=== PATIENT | male | born 1985 | race Caucasian/White ===

== ENCOUNTER 2017-03-13 11:24 | Inpatient (IN) | payer BC ==
[2017-03-13] MEDS: Albumin Human 25%* 50 ML BTL IV SCH (11:30)
[2017-03-13] MEDS ORDERED: NS 0.9% 1000 ML* 1,000 ML IV ONE (11:38)
[2017-03-13 11:45] LABS: Hematocrit 44 % (42-52); Hemoglobin 14.9 g/dl (14.0-18.0); Mean Corpuscular HGB Conc 34 g/dl (31-36); Mean Corpuscular Hemoglobin 34 pg (27-31); Mean Corpuscular Volume 101 fL (80-94); Mean Platelet Volume 10 um3 (7.4-10.4); Red Blood Count 4.38 10^6/ul (4.0-5.4); Red Cell Distribution Width 15 % (10.5-15); White Blood Count 14.3 10^3/ul (3.5-10.8)
[2017-03-13 12:01] LABS: Albumin 3.2 g/dL (3.2-5.2); BUN/Creatinine Ratio 3.2 (8-20); C Reactive Protein 16.73 mg/L (< 5.00); Calcium 8.5 mg/dL (8.6-10.3); EGFR African American 192.1 (>60); EGFR Non-African American 149.4 (>60); Globulin 4.7 g/dL (2-4); Potassium 3.2 mmol/L (3.5-5.0); Total Bilirubin 4.4 mg/dL (0.2-1.0); Total Protein 7.9 g/dL (6.4-8.9)
[2017-03-13 12:02] LABS: Troponin I 0.02 ng/mL (<0.04)
--- NOTE | 2017-03-13 12:27 | RAD ---
HISTORY: Abdominal distention COMPARISONS: None VIEWS: 2: Frontal dual-energy and lateral views of the chest. FINDINGS: CARDIOMEDIASTINAL SILHOUETTE: The cardiomediastinal silhouette is normal. BAYRON: The bayron are normal. PLEURA: The costophrenic angles are sharp. No pleural abnormalities are noted. LUNG PARENCHYMA: The lung volumes are low. The lungs are clear. ABDOMEN: The upper abdomen is clear. There is no subphrenic gas. BONES AND SOFT TISSUES: No bone or soft tissue abnormalities are noted. OTHER: None. IMPRESSION: NO ACTIVE CARDIOPULMONARY DISEASE.
--- NOTE | 2017-03-13 12:28 | RAD ---
HISTORY: Abdominal distention COMPARISONS: None VIEWS: Frontal views of the abdomen. FINDINGS: BOWEL: There is a nonobstructive bowel gas pattern. CALCULI: There are no abnormal calculi. BONES AND SOFT TISSUES: There are no osseous abnormalities. OTHER FINDINGS: The lung bases are clear. There is no subphrenic gas. IMPRESSION: NONOBSTRUCTIVE BOWEL GAS PATTERN.
[2017-03-13 12:50] LABS: Erythrocyte Sed Rate 32 mm/Hr (0-14)
[2017-03-13] MEDS ORDERED: Ondansetron INJ* 2 MG/ML VIAL IV PRN (13:15)
--- NOTE | 2017-03-13 13:33 | RAD ---
HISTORY: Rule out ascites COMPARISONS: None TECHNIQUE: Multiple transverse and longitudinal ultrasound images were obtained of the abdomen using grayscale imaging FINDINGS: There is moderate to large amount of ascites. In the right lower quadrant, the depth from the skin to the ascites is 3.5 cm. The depth from the skin to the center of ascites is 8.3 cm. The site was marked IMPRESSION: ASCITES
[2017-03-13] MEDS ORDERED: Thiamine IV* 100 MG, Folic Acid IV* 1 MG, Multiple Vitamin IV ADULT* 10 ML in NS 0.9% 1... IV ONE (14:01)
[2017-03-13] MEDS ORDERED: Potassium Chlor TAB* 20 MEQ TAB.ER PO ONE (14:14)
[2017-03-13] MEDS ORDERED: Phytonadione Oral Solution* 5 MG/25 ML UDC PO ONE (14:17)
[2017-03-13 14:43] LABS: Magnesium 1.5 mg/dL (1.9-2.7)
--- NOTE | 2017-03-13 14:51 | PN ---
Hospitalist Progress Note Procedure Note: Date/Time of Procedure: 03/13/2017 at 2:00 PM Procedure: Paracentesis Proceduralist: Franc Zaman MD Indication: New onset ascites Location: ED-18 Procedure: Patient was prepped and draped in sterile fashion. LLQ area was marked by US guidance prior to the procedure. Area was anesthetized with 1% Lidocaine with 25G needle. Once numb a small incision was made with the scalpel and the 18G needle with catheter was advanced under intermittent negative pressure until clear, yellow ascitic fluid was obtained in a 50 cc syringe which was sent for testing. The needle was withdrawn and catheter advanced however when connected to the vacuum bottles it was difficult to get a continuous flow of fluid, some of which was slightly bloody. Despite repositioning of the catheter I was unable to get any significant fluid return. Another attempt was made with a second needle and catheter from another kit however the same problem occurred. At this time will hold on therapeutic portion of the procedure and will follow labs/cultures sent from initial fluid. Dispo: Unchanged from prior, stable for admission to the floor.
[2017-03-13] MEDS ORDERED: Magnesium Sulfate 2 GM IV* 2 GM/50 ML BAG IVPB ONE (14:52)
[2017-03-13] MEDS ORDERED: cefTRIAXone VIAL(*) 2,000 MG in NS 0.9% 50 ML* 50 ML IVPB SCH (15:00)
[2017-03-13 15:53] LABS: Body Fluid WBC 50 /mcL
[2017-03-13 15:54] LABS: Body Fluid Appearance Clear
[2017-03-13 15:57] LABS: Body Fluid Total Cells Counted 100
[2017-03-13 16:24] LABS: Urine Bilirubin Negative (Negative); Urine Glucose 1+(50 mg/dL) (Negative); Urine Nitrite Negative (Negative)
[2017-03-13] MEDS: LORazepam TAB(*) 1 MG PO SCH (16:26)
[2017-03-13] MEDS ORDERED: Morphine INJ* 4 MG/ML 1 ML SYRINGE IV ONE (17:48)
--- NOTE | 2017-03-13 18:15 | PN ---
Hospitalist Progress Note Procedure Note: Date/Time of Procedure: 03/13/2017 at 4:00 PM Procedure: Paracentesis Proceduralist: Franc Zaman MD Indication: New onset ascites Location: 410-1 Procedure: Patient was prepped and draped in sterile fashion. LLQ area was marked by US guidance prior to the procedure. Area was anesthetized with 1% Lidocaine with 25G needle. Once numb a small incision was made with the scalpel and the 18G needle with catheter was advanced under intermittent negative pressure until clear, yellow ascitic fluid was obtained. The needle was withdrawn and catheter advanced, tubing was connected to the vacuum container and fluid drained freely. 2L of straw-colored ascitic fluid was removed. Patient tolerated the procedure well. Dispo: Unchanged from prior
--- NOTE | 2017-03-13 19:02 | HP ---
CC: Dr. Kathy Tovar* HISTORY AND PHYSICAL: DATE OF ADMISSION: 03/13/17 PRIMARY CARE PROVIDER: Dr. Kathy Tovar. ATTENDING PHYSICIAN WHILE IN THE HOSPITAL: Franc Zaman MD *(report dictated by Juan Kessler NP). CHIEF COMPLAINT: Shortness of breath. HISTORY OF PRESENT ILLNESS: Mr. Blankenship is a 32-year-old male patient who carries a heavy history of alcoholism. He comes into the ER today stating that he has been having difficulty with shortness of breath, progressively getting worse over the last few months and he noticed that his abdomen has been getting bigger. He says in January he was diagnosed with Lyme disease. He was started on doxycycline. He stopped drinking in January for about a month's time, but then he started up having again in February and progressively worsening shortness of breath and abdominal distention since then. He says that particularly with exertion he is short of breath. He denied having any chest pain. He says that it sometimes hurts to breathe. He denied any fevers, but did admit to having some chills and 1 episode of vomiting and nausea, particularly in the mornings after drinking. He denied having any changes in medications. He came into the ER today, was evaluated, it was found that he appeared to be in acute alcoholic hepatitis. The ER was concerned. They had asked us to evaluate for admission. PAST MEDICAL HISTORY: Significant for: 1. Alcohol abuse. 2. Depression. 3. Psoriasis. PAST SURGICAL HISTORY: He has had a left ankle ORIF. MEDICATIONS: Home meds are denied. ALLERGIES TO MEDICATIONS: No known drug allergies. FAMILY HISTORY: His mother has a history of breast cancer. Father's history is noncontributory. SOCIAL HISTORY: He does not smoke tobacco. He does not use any recreational drugs. He does drink alcohol on a daily basis. His surrogate decision maker is his friend. REVIEW OF SYSTEMS: There is a no documented fever. He denied any significant weight change. There was no double vision. He denies having any ear discharge. There was no rhinorrhea, no sore throat, no thyroid enlargement. Denied having any chest pain. There is dyspnea on exertion. There is orthopnea. There is no abdominal pain, he said he just feels full. He did admit to having some nausea and vomiting. No dysuria. No frequency. No loss of consciousness. No pruritus. No skin ulcerations. Review of 14 systems completed, all others negative. PHYSICAL EXAMINATION GENERAL: At this time, Mr. Blankenship is a 32-year-old male patient. He is sitting in the ER stretcher. He does not appear to be in any acute stress. He is morbidly obese. He is awake and he is alert. VITAL SIGNS: Reveal blood pressure 176/100 with a pulse of 140, and respirations when he came in were 36, O2 sat 95%, temperature 99.5. His heart rate now is 108. His respirations is 23. His O2 sat is 94%. His last blood pressure was noted to be 140/70. HEENT: Head is atraumatic. Eyes, EOMs intact. Sclerae anicteric, not pale. Throat, oral mucosa appeared to be moist. No oropharyngeal erythema. NECK: Supple. LUNGS: Were diminished in the bases. HEART: Heart sounds S1, S2. Regular rate and rhythm. He is tachycardic. ABDOMEN: Distended. Dense percussion was noted. He was nontender on palpation. Bowel sounds were distant. EXTREMITIES: Pulses were 2+ throughout. He has +2 pitting edema bilaterally. He is able to move all 4 extremities with 5/5 strength. NEUROLOGIC: The patient is awake, he is alert, he is oriented x3. Bottle Carrier were equal. Tongue midline. No gross focal deficits. SKIN: Intact. He has got diffuse plaques on his body. DIAGNOSTIC STUDIES/LAB DATA: Today revealed WBC of 14.3, RBC of 4.38, hemoglobin of 14.9, his hematocrit was 44, platelet count of 118. The INR was 1.53. PTT was 44.2. His sodium was 123, chloride was 88, bicarb was 23, BUN 2 , creatinine of 0.62, glucose 194, lactic acid was 4.1, calcium 8.5. Total bili 4.4, AST 348, ALT 71. His troponin was 0.02. CRP 16. His albumin was 3.2. Toxicology showed an alcohol level of 401. His abdominal x-ray today showed nonobstructive bowel gas pattern. He had a chest x-ray obtained today, which revealed no active cardiopulmonary disease. There was an EKG obtained today as well, which showed sinus tachycardia, rate of 150. No ST elevation or T-wave inversions were noted. Old medical records reviewed. ASSESSMENT AND PLAN: Mr. Blankenship is a 32-year-old male patient with a history of alcoholism, coming into the ER today with complaints of shortness of breath. He will be admitted under inpatient status for: 1. Alcoholic hepatitis with associated ascites. At this point, I suspect the reason he is so short of breath is because he has massive ascites. We did attempt a paracentesis today, but unfortunately we were unable to do a therapeutic drainage, we were able to get diagnostic drainage. I will send off the fluid for evaluation with cell count and cultures. As he does have a white count, I am going to put him empirically on 2 g of Rocephin to cover SBP, but I suspect this is less likely. I will go ahead and continue to follow. Dr. Flores has been consulted, and he will evaluate. The plan at this point is supportive care. I will hydrate him slowly. In addition to this, I will put him on the WAM protocol, order banana bag, thiamine, and folate. I am going to check his magnesium as well. 2. Hyponatremia. It is probably related to the alcoholism. He does drink beer heavily. I am going to send off urine osmolality, serum osmolality, and urine phenol. We will hydrate him. We will repeat the BMP around 6 o'clock tonight. 3. Lactic acidosis. It is probably from the liver injury. We will repeat this. I do not think he is actively infected, but again to be sure, I am putting him on 2 g of Rocephin empirically and we are sending off blood cultures and sending off his peritoneal fluid as well. 4. Hypokalemia. I am going to replace this. 5. Coagulopathy. It is probably related to the liver dysfunction. I will give him vitamin K. 6. Alcoholism. I did order a social work consult and WAM protocol. 7. DVT prophylaxis: I will place him on SCDs in the setting of coagulopathy. 8. Code status: Full code. 9. Fluids, electrolytes, and nutrition: He can have a regular diet. 10. Depression. We will continue with supportive care. I did order a social work consult. 11. Psoriasis. Again he is following in the outpatient setting with his paper sales representative. TIME SPENT: Time spent on admission is approximately 60 minutes, greater than half the time spent [id number] with the patient obtaining my history and physical, other half time spent going over the plan of care with the patient and implementing plan of care. I did discuss the plan of care with my attending , Dr. Zaman; he is in agreement. JUAN KESSLER NP [id number]/CPS #: [id number] PHILLIP
[2017-03-13 19:18] LABS: BUN/Creatinine Ratio 3.3 (8-20); Calcium 8.1 mg/dL (8.6-10.3); EGFR African American 195.8 (>60); EGFR Non-African American 152.2 (>60); Potassium 3.2 mmol/L (3.5-5.0)
[2017-03-13] MEDS: Morphine INJ* 2 MG/ML 1 ML SYRINGE IV PRN (22:32)
[2017-03-14] MEDS: LORazepam TAB(*) 1 MG PO SCH ×7 (00:25→20:20)
[2017-03-14 05:33] LABS: Hematocrit 41 % (42-52); Hemoglobin 13.7 g/dl (14.0-18.0); Mean Corpuscular HGB Conc 34 g/dl (31-36); Mean Corpuscular Hemoglobin 34 pg (27-31); Mean Corpuscular Volume 102 fL (80-94); Mean Platelet Volume 10 um3 (7.4-10.4); Red Blood Count 4.02 10^6/ul (4.0-5.4); Red Cell Distribution Width 15 % (10.5-15)
[2017-03-14 05:41] LABS: Add Diff/Slide Review? Slide Review Added; Comments Flag Yes
[2017-03-14 05:58] LABS: Albumin 2.8 g/dL (3.2-5.2); BUN/Creatinine Ratio 3.6 (8-20); Calcium 8.2 mg/dL (8.6-10.3); EGFR African American 216.1 (>60); Total Bilirubin 4.1 mg/dL (0.2-1.0); Total Protein 6.8 g/dL (6.4-8.9)
[2017-03-14] MEDS: Morphine INJ* 2 MG/ML 1 ML SYRINGE IV PRN ×2 (06:09→08:11)
[2017-03-14 06:24] LABS: Direct Bilirubin 2.2 mg/dL (0.03-0.18); Indirect Bilirubin 1.9 mg/dL (0.3-1.0)
[2017-03-14 06:26] LABS: Potassium 3.5 mmol/L (3.5-5.0)
[2017-03-14] MEDS: Thiamine TAB* 100 MG TAB PO SCH (08:12)
[2017-03-14] MEDS: Folic Acid TAB* 1 MG PO SCH (08:13)
[2017-03-14] MEDS: Multivitamins/Minerals TAB PO SCH (08:13)
[2017-03-14] MEDS ORDERED: hydrALAZINE IV* 20 MG/ML VIAL IV SLOW PU PRN (08:24)
[2017-03-14] MEDS ORDERED: diPHENhydraMINE PO* 50 MG PO PRN (08:24)
--- NOTE | 2017-03-14 10:19 | PN ---
Subjective Date of Service: 03/14/17 Interval History: Patient seen and examined at bedside this AM. Reports increased SOB this AM and reports some mild relief following bedside paracentesis yesterday. Denies CP, abd pain, n/v. Patient reports that lesions to abdomen, torso, face, and neck are psoriasis. They are unchanged from previous. 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 He reports frequent alcohol use and drinks alcohol regularly. Denies any previous history of liver disease. However, through further investigation, the patient has reportedly seen Dr. Flores in the outpatient setting several months ago. He was prescribed antabuse, lorazepam and acamprosate for cessation and withdrawal but did not ever take these medications. He reports being diagnosed with Lyme disease recently but states he was told to hold off on his doxycycline until he stops drinking (he has not stopped drinking to start his treatment). He also reports that he is supposed to be on fluoxetine for depression but has not started due to his drinking. Patient also reports seeing Dr. Burciaga and is to start a medication for his psoriasis but has yet to do so due to heavy ETOH use. Family History: Unchanged from Admission Social History: Unchanged from Admission Past Medical History: Unchanged from Admission Objective Active Medications: Diphenhydramine HCl (Benadryl Po*) 50 mg PO Q6H PRN PRN Reason: ITCHING Folic Acid (Folvite Tab*) 1 mg PO DAILY [facility] Last Admin: 03/14/17 08:13 Dose: 1 mg Hydralazine HCl (Apresoline Iv*) 5 mg IV SLOW PU Q6H PRN PRN Reason: BLOOD PRESSURE Ceftriaxone Sodium 2,000 mg/ (Sodium Chloride) 100 mls @ 400 mls/hr IVPB 1500 AYE Lorazepam (Ativan Tab(*)) 0 mg PO .PER WAM SCORE [facility] PRN Reason: Protocol Last Admin: 03/14/17 09:46 Dose: 3 mg Morphine Sulfate (Morphine Inj (Syringe)*) 1 mg IV Q2H PRN PRN Reason: PAIN - MILD Last Admin: 03/14/17 08:11 Dose: 1 mg Multivitamins/Minerals (Theragran/Minerals Tab*) 1 tab PO DAILY [facility] Last Admin: 03/14/17 08:13 Dose: 1 tab Ondansetron HCl (Zofran Inj*) 4 mg IV Q6H PRN PRN Reason: NAUSEA Thiamine HCl (Vitamin B-1 Tab*) 100 mg PO DAILY AYE Last Admin: 03/14/17 08:12 Dose: 100 mg Vital Signs 03/13/17 03/13/17 03/13/17 14:00 15:00 15:17 Temperature Pulse Rate 105 107 110 Respiratory 22 26 Rate Blood Pressure 136/80 (mmHg) O2 Sat by Pulse 92 89 89 Oximetry 03/13/17 03/13/17 03/13/17 15:30 16:08 16:26 Temperature 97.5 F Pulse Rate 110 105 Respiratory 22 20 20 Rate Blood Pressure 133/76 159/96 (mmHg) O2 Sat by Pulse 92 95 Oximetry 03/13/17 03/13/17 03/13/17 17:53 18:15 18:38 Temperature 98.3 F Pulse Rate 115 Respiratory 16 19 16 Rate Blood Pressure 175/74 (mmHg) O2 Sat by Pulse 92 Oximetry 03/13/17 03/13/17 03/13/17 20:04 20:40 20:42 Temperature 98.2 F Pulse Rate 110 Respiratory 20 20 20 Rate Blood Pressure 156/73 (mmHg) O2 Sat by Pulse 90 90 Oximetry 03/13/17 03/13/17 03/13/17 22:05 22:32 23:32 Temperature 98.4 F Pulse Rate 111 Respiratory 19 22 22 Rate Blood Pressure 138/69 (mmHg) O2 Sat by Pulse 92 Oximetry 03/14/17 03/14/17 03/14/17 00:20 00:25 02:25 Temperature 98.1 F Pulse Rate 109 Respiratory 28 28 24 Rate Blood Pressure 148/65 (mmHg) O2 Sat by Pulse 96 Oximetry 03/14/17 03/14/17 03/14/17 02:34 02:44 04:44 Temperature Pulse Rate 113 Respiratory 24 24 24 Rate Blood Pressure 149/64 (mmHg) O2 Sat by Pulse 96 Oximetry 03/14/17 03/14/17 03/14/17 05:21 06:09 07:59 Temperature 98.3 F Pulse Rate 118 110 Respiratory 40 36 34 Rate Blood Pressure 145/81 164/85 (mmHg) O2 Sat by Pulse 94 92 Oximetry 03/14/17 03/14/17 03/14/17 08:00 08:11 09:46 Temperature Pulse Rate Respiratory 28 28 26 Rate Blood Pressure (mmHg) O2 Sat by Pulse Oximetry Oxygen Devices in Use Now: None Appearance: Obese male, lying in bed, tachypneic Eyes: - - icteric sclera Respiratory: - - lungs diminished but aeration in all lung miller Cardiovascular: RRR Abdominal: - - firm, distended abdomen, bs present Skin: - - psoriatic plaques to scalp, face, neck, torso, abdomen Neurological: Alert and Oriented x 3 Lines/Tubes/Other Access: Clean, Dry and Intact Peripheral IV Nutrition: Taking PO's Result Diagrams: 03/14/17 05:14 03/14/17 15:19 Additional Lab and Data: Lab Results 03/13/17 03/13/17 03/13/17 Range/Units 11:35 11:35 11:35 WBC 14.3 H (3.5-10.8) 10^3/ul RBC 4.38 (4.0-5.4) 10^6/ul Hgb 14.9 (14.0-18.0) g/dl Hct 44 (42-52) % MCV 101 H (80-94) fL MCH 34 H (27-31) pg MCHC 34 (31-36) g/dl RDW 15 (10.5-15) % Plt Count 118 L (150-450) 10^3/ul MPV 10 (7.4-10.4) um3 Neut % (Auto) 73.5 (38-83) % Lymph % (Auto) 16.9 L (25-47) % Waller % (Auto) 8.1 (1-9) % Eos % (Auto) 0.4 (0-6) % Baso % (Auto) 1.1 (0-2) % Absolute Neuts (auto) 10.5 H (1.5-7.7) 10^3/ul Absolute Lymphs (auto) 2.4 (1.0-4.8) 10^3/ul Absolute Monos (auto) 1.2 H (0-0.8) 10^3/ul Absolute Eos (auto) 0.1 (0-0.6) 10^3/ul Absolute Basos (auto) 0.2 (0-0.2) 10^3/ul Absolute Nucleated RBC 0.02 10^3/ul Nucleated RBC % 0.1 ESR Pending INR (Anticoag Therapy) 1.53 H (0.89-1.11) APTT 44.2 H (26.0-36.3) seconds Fibrinogen 141 (110.8-404.3) mg/dL Sodium 123 L (133-145) mmol/L Potassium 3.2 L (3.5-5.0) mmol/L Chloride 88 L (101-111) mmol/L Carbon Dioxide 23 (22-32) mmol/L Anion Gap 12 H (2-11) mmol/L BUN 2 L (6-24) mg/dL Creatinine 0.62 L (0.67-1.17) mg/dL Est GFR ( Amer) 192.1 (>60) Est GFR (Non-Af Amer) 149.4 (>60) BUN/Creatinine Ratio 3.2 L (8-20) Glucose 194 H (70-100) mg/dL Lactic Acid (0.5-2.0) mmol/L Calcium 8.5 L (8.6-10.3) mg/dL Total Bilirubin 4.40 H (0.2-1.0) mg/dL AST 348 H (13-39) U/L ALT 71 H (7-52) U/L Alkaline Phosphatase 215 H (34-104) U/L Total Creatine Kinase 674 H (10-223) U/L Troponin I 0.02 (<0.04) ng/mL C-Reactive Protein 16.73 H (< 5.00) mg/L B-Natriuretic Peptide ( - 100) pg/mL Total Protein 7.9 (6.4-8.9) g/dL Albumin 3.2 (3.2-5.2) g/dL Globulin 4.7 H (2-4) g/dL Albumin/Globulin Ratio 0.7 L (1-3) Serum Alcohol Pending 03/13/17 03/13/17 Range/Units 11:35 11:35 WBC (3.5-10.8) 10^3/ul RBC (4.0-5.4) 10^6/ul Hgb (14.0-18.0) g/dl Hct (42-52) % MCV (80-94) fL MCH (27-31) pg MCHC (31-36) g/dl RDW (10.5-15) % Plt Count (150-450) 10^3/ul MPV (7.4-10.4) um3 Neut % (Auto) (38-83) % Lymph % (Auto) (25-47) % Waller % (Auto) (1-9) % Eos % (Auto) (0-6) % Baso % (Auto) (0-2) % Absolute Neuts (auto) (1.5-7.7) 10^3/ul Absolute Lymphs (auto) (1.0-4.8) 10^3/ul Absolute Monos (auto) (0-0.8) 10^3/ul Absolute Eos (auto) (0-0.6) 10^3/ul Absolute Basos (auto) (0-0.2) 10^3/ul Absolute Nucleated RBC 10^3/ul Nucleated RBC % ESR INR (Anticoag Therapy) (0.89-1.11) APTT (26.0-36.3) seconds Fibrinogen (110.8-404.3) mg/dL Sodium (133-145) mmol/L Potassium (3.5-5.0) mmol/L Chloride (101-111) mmol/L Carbon Dioxide (22-32) mmol/L Anion Gap (2-11) mmol/L BUN (6-24) mg/dL Creatinine (0.67-1.17) mg/dL Est GFR ( Amer) (>60) Est GFR (Non-Af Amer) (>60) BUN/Creatinine Ratio (8-20) Glucose (70-100) mg/dL Lactic Acid 4.1 H* (0.5-2.0) mmol/L Calcium (8.6-10.3) mg/dL Total Bilirubin (0.2-1.0) mg/dL AST (13-39) U/L ALT (7-52) U/L Alkaline Phosphatase (34-104) U/L Total Creatine Kinase (10-223) U/L Troponin I (<0.04) ng/mL C-Reactive Protein (< 5.00) mg/L B-Natriuretic Peptide 35 ( - 100) pg/mL Total Protein (6.4-8.9) g/dL Albumin (3.2-5.2) g/dL Globulin (2-4) g/dL Albumin/Globulin Ratio (1-3) Serum Alcohol Assess/Plan/Problems-Billing Assessment: Mr. 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 - Patient Problems (1) Alcoholic hepatitis with ascites Code(s): K70.11 - ALCOHOLIC HEPATITIS WITH ASCITES Comment: Patient presents with massive ascites, fluid sent for testing. Bedside paracentesis performed yesterday - 2L drawn at bedside. Plan for second bedside paracentesis today, as patient is still very distended and uncomfortable. Appreciate gastroenterology consult. Liver US pending. Vitamin K given for coagulopathy Continue prophylactic ceftriaxone for SBP. Continue supportive care. (2) Hyponatremia Code(s): E87.1 - HYPO-OSMOLALITY AND HYPONATREMIA Comment: Suspect secondary to liver disease and alcohol use 1500 mL free water restriction Continue to monitor closely. (3) Lactic acidosis Code(s): E87.2 - ACIDOSIS Comment: Suspect secondary to liver disease Continue to trend (4) Hypokalemia Status: Acute Code(s): E87.6 - HYPOKALEMIA Comment: Improved Give additional potassium replacement today. (5) Alcohol abuse Code(s): F10.10 - ALCOHOL ABUSE, UNCOMPLICATED Comment: Patient carries a ~15+ year hx of ETOH abuse with previous rehab attempts. From records, I can see patient was evaluated for abnormal LFTs in November and previously prescribed disulfiram and acamprosate by PCP. Unclear if patient followed through on alcohol cessation at that time. Continue WAM protocol with prn lorazepam. SW consult (6) Depression Code(s): F32.9 - MAJOR DEPRESSIVE DISORDER, SINGLE EPISODE, UNSPECIFIED Comment: Not currently treated Patient prescribed SSRI but has not started secondary to ETOH use (7) Psoriasis Code(s): L40.9 - PSORIASIS, UNSPECIFIED Comment: Continue outpatient follow-up with dermatology (8) DVT prophylaxis Comment: Coagulopathy secondary to liver disease SCDs ordered Status and Disposition: Inpatient admission. Anticipate LOS >2 days.
--- NOTE | 2017-03-14 15:13 | PN ---
Hospitalist Progress Note . HOSPITALIST PROCEDURE NOTE: PARACENTESIS Indication present for paracentesis: massive ascites and shortness of breath Discussed with patient, who agreed and consented based on risks & benefits explained. Labs reviewed (no coagulopathy noted). Materials collected and room set up Patient positioned and target site sterilized in the usual fashion with right side (entry site) dependent Completed physician-led time out reviewing patient name, procedure, indications , laterality, goals, etc. Site anesthetized with 2% lidocaine, in usual fashion Larger finder needle delivered deeper lidocaine and got drawback (flash) with yellow ascetic fluid (characteristic color noted) Catheter inserted through needle with ascites returning continually. Drained total of 2000 cc over 45 minutes with no report of discomfort or other difficulty. No complications noted at the time of this note.
[2017-03-14 15:41] LABS: BUN/Creatinine Ratio 3.8 (8-20); Calcium 8.3 mg/dL (8.6-10.3); EGFR African American 145.3 (>60); Potassium 3.8 mmol/L (3.5-5.0)
[2017-03-14] MEDS ORDERED: Potassium Chlor TAB* 20 MEQ TAB.ER PO ONE (15:46)
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
--- NOTE | 2017-03-14 20:28 | RAD ---
Indication: Elevated liver function tests. Comparison: No relevant prior exams available on the [facility] PACS for comparison. Technique: RIGHT upper quadrant ultrasound. Report: Limited acoustic window due to large body habitus and echogenic liver. The liver measures 24 cm cephalocaudal. No focal hepatic lesions or intrahepatic biliary dilatation evident. Poorly visualized normally distended gallbladder. Gallbladder wall appears upper normal in thickness. No visualized gallstones or pericholecystic fluid. Negative for sonographic Michelle's sign. The common bile duct could not be visualized. The portal and hepatic veins could not be visualized. The pancreas could not be visualized. Negative for ascites. 12.4 x 6.8 x 6.3 cm RIGHT kidney is without gross abnormality. IMPRESSION: 1. Hepatomegaly and hepatosteatosis. 2. Suboptimal substance of the gallbladder without gross abnormality. 3. Negative for RIGHT hydronephrosis.
--- NOTE | 2017-03-14 23:06 | CONS ---
GASTROENTEROLOGY CONSULTATION DATE: 03/14/17 CONSULTING PHYSICIANS: Graham Senior, Kathy Tovar. REASON FOR CONSULTATION: Acute alcoholic hepatitis with ascites. HISTORY: This 32-year-old man with a history of drinking much beer every day and periodic binges of vodka, came to the emergency room with blood alcohol of 401 and moderately elevated LFTs, bilirubin 4.4, ALT 71, AST 348, and alkaline phosphatase 215. His albumin was 3.2 (rapidly dropped to 2.8 the next day) and INR 1.53, increasing to 1.58. BUN is 3, creatinine 0.79. He has had many years of alcohol abuse. He cannot spontaneously give a linear narrative of events, but does seem accurate in answering certain questions. He attended [facility] as an outpatient for close to a year sometime in 2013 or early [address] Hernandez's note (sent to my office prior to December 2016 outpatient consult) documents that he had considered going to [facility] and the [facility], but ultimately settled on the employee assistance program at [facility] where he saw a psychologist. Part of this was simultaneous with going to the [facility] program. He was not on any psychiatric medicines in 2013 per 3 or 4 [facility] medicine notes nor was he on any in October 2016. At the time of his outpatient consult, 12/21/16, acamprosate and Prozac were listed. They were denied on admission this time though it is not clear how accurately that was answered or if corroborated by his . In November or December, he took doxycycline for Lyme disease saying that a serologic test showed evidence of it chcf. He says that during the month of taking the doxycycline, he did not drink. Then, other ticks were found embedded in his body (his statement today) and he says he was placed back on doxycycline. There is no independent corroboration of these dates. The hospital record does show Lyme IgM bands present on 09/04/13. The laboratory specific comment is that specific evidence of infection is not present. PAST MEDICAL HISTORY: 1. Obesity - his weight, July 2014, at [facility] was 244; October 2016 , 294; and today 311.8. 2. Alcohol abuse - alcohol level, July 2014, 195; September 2014, 244; and this admission, 401. He had similar elevations of AST in June and July of 2014 with levels between 80 and 90, September 2014 and April 2015. First bilirubin elevation 1.20 was April 2015. He had liver ultrasound, November 2016 , showing hepatomegaly with fatty infiltration and no ascites. 3. Depression - past medication use, not specified. 4. Psoriasis. 5. Seborrheic keratosis. 6. History of left ankle fracture - skiing injury in [place]. MEDICATIONS: At home, no known. ALLERGIES: None known to drugs. FAMILY HISTORY: He says his [place] grandparents have had drinking and liver problems, but he cannot specify anything particular. Two of them lived into their mid 90s. SOCIAL HISTORY: He is 4 years and has a 5-year-old and a [id number]. His mother works at [employer] in [employer]. 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 He buys his own alcohol. As of December 2016, he had not had any legal issues related to alcohol. REVIEW OF SYSTEMS: No history of hepatitis, seizure, syncope, NH, palpitations , TB, pulmonary disease, renal stones, or abdominal surgery. EXAM: He is an obese man appearing older than stated age with a prolific spencer. He has extensive psoriasis in his upper forehead and a splotchy erythematous pattern over his chest and upper abdomen. He is obese, appears unkempt with somewhat greasy skin. He does have spider angiomas that can be discerned around areas of psoriasis. Breath sounds are intact and clear. Heart sounds are regular. The abdomen is obese with substantial obesity, though suspected ascites. The liver cannot be palpated and nor can the spleen. Rectal : Deferred. Extremities show obesity and tensed, taut skin. Neurologic shows him to be tired, fatigued with some mild tremor to the hands on extension and probably no asterixis. His mental status is surprisingly good with him being oriented to person, place, date, and he can answer most questions with a fair amount of precision such as his weight this morning, etc. Nonetheless, he does not give any answers requiring self analysis and judgement such as choosing not to describe the overall cause of his predicament. IMPRESSION: This 32-year-old man with alcoholic hepatitis is rather desperately acutely ill from the point of view of a clearly substantially damaged liver and appearing chronically to be totally refractory and recalcitrant to multiple avenues of trying to reach him and have an impact on his behavior. For the moment, the focus is on preventing acute withdrawal and preventing resultant fluid accumulation during this detox and gently introducing diuretics and the principles of a low-sodium diet. He may slip into florid liver failure. What resources he retains as regards his relationship with his family or others that can be supportive may be ly. It is clear that nothing has reached him yet. That is going to be his only chance. [id number]/[facility] #: [id number] PHILLIP
[2017-03-15] MEDS: LORazepam TAB(*) 1 MG PO SCH ×3 (00:01→06:25)
[2017-03-15 05:42] LABS: Hematocrit 42 % (42-52); Hemoglobin 14.3 g/dl (14.0-18.0); Mean Corpuscular HGB Conc 34 g/dl (31-36); Mean Corpuscular Hemoglobin 34 pg (27-31); Mean Corpuscular Volume 101 fL (80-94); Mean Platelet Volume 11 um3 (7.4-10.4); Red Blood Count 4.17 10^6/ul (4.0-5.4); Red Cell Distribution Width 15 % (10.5-15); White Blood Count 12.5 10^3/ul (3.5-10.8)
[2017-03-15 05:45] LABS: Add Diff/Slide Review? Slide Review Added; Comments Flag Yes
[2017-03-15 05:54] LABS: BUN/Creatinine Ratio 4.9 (8-20); Calcium 8.3 mg/dL (8.6-10.3); EGFR African American 139.2 (>60); EGFR Non-African American 108.2 (>60); Potassium 3.9 mmol/L (3.5-5.0)
[2017-03-15] MEDS: LORazepam INJ* 2 MG/ML 1 ML VIAL IV SCH ×7 (08:15→22:21)
[2017-03-15] MEDS: Folic Acid TAB* 1 MG PO SCH (08:20)
[2017-03-15] MEDS: Spironolactone TAB* 25 MG PO SCH (08:20)
[2017-03-15] MEDS: Thiamine TAB* 100 MG TAB PO SCH (08:20)
[2017-03-15] MEDS: Multivitamins/Minerals TAB PO SCH (08:20)
[2017-03-15] MEDS: chlordiazePOXIDE CAP* 25 MG PO SCH ×3 (08:22→20:26)
--- NOTE | 2017-03-15 08:23 | PN ---
Subjective Date of Service: 03/15/17 Interval History: Patient seen and examined at bedside. He is OOB to chair, as he states the bed hurt his back more. He has a safety monitor in room due to impulsive behavior and apparent disorientation. He denies CP and states he feels like his breathing did improve following yesterday's paracentesis. However, he does feel like his breathing is "shallow." Patient does answer questions appropriately but then makes inappropriate statements and appears to be having visual hallucinations and conversations with another person in the room. Family History: Unchanged from Admission Social History: Unchanged from Admission Past Medical History: Unchanged from Admission Objective Active Medications: Chlordiazepoxide (Librium Cap*) 50 mg PO TID [facility] Last Admin: 03/15/17 08:22 Dose: 50 mg Diphenhydramine HCl (Benadryl Po*) 50 mg PO Q6H PRN PRN Reason: ITCHING Folic Acid (Folvite Tab*) 1 mg PO DAILY [facility] Last Admin: 03/15/17 08:20 Dose: 1 mg Furosemide (Lasix Tab*) 20 mg PO EVERY OTHER DAY [facility] Last Admin: 03/15/17 08:20 Dose: 20 mg Hydralazine HCl (Apresoline Iv*) 5 mg IV SLOW PU Q6H PRN PRN Reason: BLOOD PRESSURE Ceftriaxone Sodium 1,000 mg/ (Sodium Chloride) 50 mls @ 200 mls/hr IVPB Q24H [facility] Lorazepam (Ativan Inj*) 0 mg IV .PER WAM SCORE [facility] PRN Reason: Protocol Last Admin: 03/15/17 08:15 Dose: 1.5 mg Morphine Sulfate (Morphine Inj (Syringe)*) 1 mg IV Q2H PRN PRN Reason: PAIN - MILD Last Admin: 03/14/17 08:11 Dose: 1 mg Multivitamins/Minerals (Theragran/Minerals Tab*) 1 tab PO DAILY [facility] Last Admin: 03/15/17 08:20 Dose: 1 tab Ondansetron HCl (Zofran Inj*) 4 mg IV Q6H PRN PRN Reason: NAUSEA Spironolactone (Aldactone Tab*) 50 mg PO DAILY [facility] Last Admin: 03/15/17 08:20 Dose: 50 mg Thiamine HCl (Vitamin B-1 Tab*) 100 mg PO DAILY [facility] Last Admin: 03/15/17 08:20 Dose: 100 mg Vital Signs 03/14/17 03/14/17 03/14/17 09:11 09:46 11:53 Temperature 98.9 F Pulse Rate 118 Respiratory 26 26 28 Rate Blood Pressure 130/73 (mmHg) O2 Sat by Pulse 94 Oximetry 03/14/17 03/14/17 03/14/17 12:07 14:00 14:12 Temperature 99.9 F Pulse Rate 132 Respiratory 40 40 40 Rate Blood Pressure 142/73 (mmHg) O2 Sat by Pulse 94 Oximetry 03/14/17 03/14/17 03/14/17 16:40 17:46 19:46 Temperature 98.9 F Pulse Rate 123 Respiratory 28 32 40 Rate Blood Pressure 157/89 (mmHg) O2 Sat by Pulse 93 Oximetry 03/14/17 03/14/17 03/14/17 19:50 20:12 20:20 Temperature 99.5 F Pulse Rate 127 Respiratory 40 44 42 Rate Blood Pressure 154/86 (mmHg) O2 Sat by Pulse 93 Oximetry 03/14/17 03/14/17 03/14/17 22:14 22:20 23:59 Temperature 98.0 F Pulse Rate 132 132 Respiratory 24 30 44 Rate Blood Pressure 156/88 174/94 (mmHg) O2 Sat by Pulse 93 94 Oximetry 03/15/17 03/15/17 03/15/17 00:01 01:09 02:01 Temperature Pulse Rate Respiratory 42 38 Rate Blood Pressure (mmHg) O2 Sat by Pulse 94 Oximetry 03/15/17 03/15/17 03/15/17 02:40 04:07 04:09 Temperature 98.1 F Pulse Rate 124 119 Respiratory 44 40 40 Rate Blood Pressure 155/85 151/62 (mmHg) O2 Sat by Pulse 95 95 Oximetry 03/15/17 03/15/17 03/15/17 06:00 06:08 06:25 Temperature 98.1 F Pulse Rate 132 Respiratory 16 38 44 Rate Blood Pressure 169/85 (mmHg) O2 Sat by Pulse 93 Oximetry 03/15/17 03/15/17 03/15/17 07:52 08:02 08:15 Temperature 99.7 F Pulse Rate 134 Respiratory 46 46 42 Rate Blood Pressure 133/77 (mmHg) O2 Sat by Pulse 94 Oximetry 03/15/17 08:22 Temperature Pulse Rate Respiratory 42 Rate Blood Pressure (mmHg) O2 Sat by Pulse Oximetry Oxygen Devices in Use Now: None Appearance: Male, appears older than stated age, OOB to chair, tachypneic, appears disoriented. Appears disheveled. Eyes: - - icteric sclera Ears/Nose/Mouth/Throat: Mucous Membranes Moist Respiratory: Symmetrical Chest Expansion and Respiratory Effort, Clear to Auscultation Cardiovascular: NL Sounds; No Murmurs; No JVD, RRR - tachycardic, apical 122 Abdominal: - - firm, distended, obese, BS present Extremities: - - BLE edema 1+ Skin: - - generalized psoriatic plaques Neurological: - - Awake, slowed mentation, PEREZ, answers appropriately but appears to be having hallucinations Lines/Tubes/Other Access: Clean, Dry and Intact Peripheral IV Nutrition: Taking PO's Result Diagrams: 03/15/17 05:22 03/15/17 05:05 Additional Lab and Data: Lab Results 03/13/17 03/13/17 03/13/17 Range/Units 11:35 11:35 11:35 WBC 14.3 H (3.5-10.8) 10^3/ul RBC 4.38 (4.0-5.4) 10^6/ul Hgb 14.9 (14.0-18.0) g/dl Hct 44 (42-52) % MCV 101 H (80-94) fL MCH 34 H (27-31) pg MCHC 34 (31-36) g/dl RDW 15 (10.5-15) % Plt Count 118 L (150-450) 10^3/ul MPV 10 (7.4-10.4) um3 Neut % (Auto) 73.5 (38-83) % Lymph % (Auto) 16.9 L (25-47) % [place] % (Auto) 8.1 (1-9) % Eos % (Auto) 0.4 (0-6) % Baso % (Auto) 1.1 (0-2) % Absolute Neuts (auto) 10.5 H (1.5-7.7) 10^3/ul Absolute Lymphs (auto) 2.4 (1.0-4.8) 10^3/ul Absolute Monos (auto) 1.2 H (0-0.8) 10^3/ul Absolute Eos (auto) 0.1 (0-0.6) 10^3/ul Absolute Basos (auto) 0.2 (0-0.2) 10^3/ul Absolute Nucleated RBC 0.02 10^3/ul Nucleated RBC % 0.1 ESR Pending INR (Anticoag Therapy) 1.53 H (0.89-1.11) APTT 44.2 H (26.0-36.3) seconds Fibrinogen 141 (110.8-404.3) mg/dL Sodium 123 L (133-145) mmol/L Potassium 3.2 L (3.5-5.0) mmol/L Chloride 88 L (101-111) mmol/L Carbon Dioxide 23 (22-32) mmol/L Anion Gap 12 H (2-11) mmol/L BUN 2 L (6-24) mg/dL Creatinine 0.62 L (0.67-1.17) mg/dL Est GFR ( Amer) 192.1 (>60) Est GFR (Non-Af Amer) 149.4 (>60) BUN/Creatinine Ratio 3.2 L (8-20) Glucose 194 H (70-100) mg/dL Lactic Acid (0.5-2.0) mmol/L Calcium 8.5 L (8.6-10.3) mg/dL Total Bilirubin 4.40 H (0.2-1.0) mg/dL AST 348 H (13-39) U/L ALT 71 H (7-52) U/L Alkaline Phosphatase 215 H (34-104) U/L Total Creatine Kinase 674 H (10-223) U/L Troponin I 0.02 (<0.04) ng/mL C-Reactive Protein 16.73 H (< 5.00) mg/L B-Natriuretic Peptide ( - 100) pg/mL Total Protein 7.9 (6.4-8.9) g/dL Albumin 3.2 (3.2-5.2) g/dL Globulin 4.7 H (2-4) g/dL Albumin/Globulin Ratio 0.7 L (1-3) Serum Alcohol Pending 03/13/17 03/13/17 Range/Units 11:35 11:35 WBC (3.5-10.8) 10^3/ul RBC (4.0-5.4) 10^6/ul Hgb (14.0-18.0) g/dl Hct (42-52) % MCV (80-94) fL MCH (27-31) pg MCHC (31-36) g/dl RDW (10.5-15) % Plt Count (150-450) 10^3/ul MPV (7.4-10.4) um3 Neut % (Auto) (38-83) % Lymph % (Auto) (25-47) % [place] % (Auto) (1-9) % Eos % (Auto) (0-6) % Baso % (Auto) (0-2) % Absolute Neuts (auto) (1.5-7.7) 10^3/ul Absolute Lymphs (auto) (1.0-4.8) 10^3/ul Absolute Monos (auto) (0-0.8) 10^3/ul Absolute Eos (auto) (0-0.6) 10^3/ul Absolute Basos (auto) (0-0.2) 10^3/ul Absolute Nucleated RBC 10^3/ul Nucleated RBC % ESR INR (Anticoag Therapy) (0.89-1.11) APTT (26.0-36.3) seconds Fibrinogen (110.8-404.3) mg/dL Sodium (133-145) mmol/L Potassium (3.5-5.0) mmol/L Chloride (101-111) mmol/L Carbon Dioxide (22-32) mmol/L Anion Gap (2-11) mmol/L BUN (6-24) mg/dL Creatinine (0.67-1.17) mg/dL Est GFR ( Amer) (>60) Est GFR (Non-Af Amer) (>60) BUN/Creatinine Ratio (8-20) Glucose (70-100) mg/dL Lactic Acid 4.1 H* (0.5-2.0) mmol/L Calcium (8.6-10.3) mg/dL Total Bilirubin (0.2-1.0) mg/dL AST (13-39) U/L ALT (7-52) U/L Alkaline Phosphatase (34-104) U/L Total Creatine Kinase (10-223) U/L Troponin I (<0.04) ng/mL C-Reactive Protein (< 5.00) mg/L B-Natriuretic Peptide 35 ( - 100) pg/mL Total Protein (6.4-8.9) g/dL Albumin (3.2-5.2) g/dL Globulin (2-4) g/dL Albumin/Globulin Ratio (1-3) Serum Alcohol Microbiology and Other Data: Microbiology 03/13/17 14:00 Sterile Body Fluid Culture - Preliminary Peritoneal Fluid No Growth Day 1 Sterile Body Fluid Culture - Preliminary No Growth Day 1 Assess/Plan/Problems-Billing Assessment: Mr. 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 - Patient Problems (1) Alcoholic hepatitis with ascites Code(s): K70.11 - ALCOHOLIC HEPATITIS WITH ASCITES Comment: Patient presented with massive ascites, fluid sent for testing. Fluid WBC and neutrophil count unremarkable. 2L off from bedside paracentesis on 03/13 and additional 2L off on 03/14. Lasix and spironolactone started, pt on fluid restriction. Low sodium diet. Appreciate gastroenterology consult. Liver US shows hepatomegaly and hepatosteatosis. Vitamin K given for coagulopathy Continue supportive care. (2) Increased ammonia level Code(s): R79.89 - OTHER SPECIFIED ABNORMAL FINDINGS OF BLOOD CHEMISTRY Comment : Suspect AMS in part due to ETOH withdrawal and in part due to elevated ammonia level, which is 85 Start lactulose TID (3) Hyponatremia Code(s): E87.1 - HYPO-OSMOLALITY AND HYPONATREMIA Comment: Improved today. Suspect secondary to liver disease and alcohol use 1200 mL free water restriction Continue to trend. (4) Lactic acidosis Code(s): E87.2 - ACIDOSIS Comment: Improved Suspect secondary to liver disease (5) Hypokalemia Status: Acute Code(s): E87.6 - HYPOKALEMIA Comment: Resolved. (6) Alcohol abuse Code(s): F10.10 - ALCOHOL ABUSE, UNCOMPLICATED Comment: Now in active withdrawal, scoring consistently with WAM protocol. Continue prn lorazepam, will add standing Librium. Patient carries a ~15+ year hx of ETOH abuse with previous rehab attempts. Patient recently prescribed disulfiram and acamprosate by PCP but did not start these medications. SW consult (7) Depression Code(s): F32.9 - MAJOR DEPRESSIVE DISORDER, SINGLE EPISODE, UNSPECIFIED Comment: Not currently treated Patient prescribed SSRI but has not started secondary to ETOH use (8) Psoriasis Code(s): L40.9 - PSORIASIS, UNSPECIFIED Comment: Continue outpatient follow-up with dermatology (9) DVT prophylaxis Comment: Coagulopathy secondary to liver disease SCDs ordered Status and Disposition: Inpatient admission. Anticipate LOS >2 days.
[2017-03-15] MEDS ORDERED: Furosemide TAB* 20 MG PO SCH (09:00)
[2017-03-15] MEDS ORDERED: cefTRIAXone VIAL(*) 1,000 MG in NS 0.9% 50 ML* 50 ML IVPB SCH (15:00)
[2017-03-15 15:01] LABS: FIO2 21
[2017-03-15 15:05] LABS: PCO2 Arterial 33 mmHg (35-45)
--- NOTE | 2017-03-15 18:35 | PN ---
Hospitalist Progress Note Patient started on O2 this afternoon after ABG revealed low PO2. Respiratory rate mildly improved (last counted at 28 during patient's dinner). Patient with slowed mentation but answers questions appropriately, understands he is in the hospital and is here for alcohol withdrawal. Is cooperative with plan of care. Unable to monitor I/O as patient unsure if he has urinated (but does not think so). Plan for bladder scan and kruse catheter placement for hemodynamic monitoring and suspicion of acute urinary retention. Continue lactulose as ordered. Recheck ABG and lactic acid this evening. Continue to closely monitor.
[2017-03-15 19:04] LABS: FIO2 28
[2017-03-15 19:07] LABS: PCO2 Arterial 29 mmHg (35-45)
[2017-03-15 20:13] LABS: Urine Random Sodium < 18 mmol/L
[2017-03-15 20:22] LABS: BUN/Creatinine Ratio 5.2 (8-20); Calcium 8.1 mg/dL (8.6-10.3); EGFR African American 114.6 (>60); EGFR Non-African American 89.1 (>60); Potassium 3.7 mmol/L (3.5-5.0)
[2017-03-15] MEDS: Morphine INJ* 2 MG/ML 1 ML SYRINGE IV PRN (23:26)
[2017-03-16] MEDS: LORazepam INJ* 2 MG/ML 1 ML VIAL IV SCH ×6 (00:25→08:28)
[2017-03-16] MEDS ORDERED: Ziprasidone IM INJ* 20 MG/ML VIAL IM ONE (05:00)
[2017-03-16 06:13] LABS: Albumin 2.9 g/dL (3.2-5.2); BUN/Creatinine Ratio 7.9 (8-20); Calcium 8.4 mg/dL (8.6-10.3); Direct Bilirubin 6.7 mg/dL (0.03-0.18); EGFR African American 126.6 (>60); EGFR Non-African American 98.4 (>60); Globulin 4.2 g/dL (2-4); Indirect Bilirubin 3.9 mg/dL (0.3-1.0); Potassium 3.9 mmol/L (3.5-5.0); Total Bilirubin 10.6 mg/dL (0.2-1.0); Total Protein 7.1 g/dL (6.4-8.9)
--- NOTE | 2017-03-16 07:43 | PN ---
Subjective Date of Service: 03/16/17 Interval History: Patient seen and examined at bedside. Currently, patient is sleeping after receiving Geodon overnight as well as lorazepam for agitation and aggressive behavior; patient has been scoring high on WAM protocol. No current verbalized complaints but patient reports feeling uncomfortable with low back pain and stomach tightness. Nursing paged with concern for continued tachypnea (40-48), tachycardia, and low urine output. Family History: Unchanged from Admission Social History: Unchanged from Admission Past Medical History: Unchanged from Admission Objective Active Medications: Chlordiazepoxide (Librium Cap*) 50 mg PO TID [facility] Last Admin: 03/15/17 20:26 Dose: 50 mg Diphenhydramine HCl (Benadryl Po*) 50 mg PO Q6H PRN PRN Reason: ITCHING Last Admin: 03/15/17 22:20 Dose: 50 mg Folic Acid (Folvite Tab*) 1 mg PO DAILY [facility] Last Admin: 03/15/17 08:20 Dose: 1 mg Furosemide (Lasix Tab*) 20 mg PO EVERY OTHER DAY [facility] Last Admin: 03/15/17 08:20 Dose: 20 mg Hydralazine HCl (Apresoline Iv*) 5 mg IV SLOW PU Q6H PRN PRN Reason: BLOOD PRESSURE Lactated Ringer's (Lactated Ringers 1000 Ml Bag*) 1,000 mls @ 100 mls/hr IV ONCE ONE Stop: 03/16/17 17:26 Lactulose (Lactulose*) 30 ml PO QID [facility] Lorazepam (Ativan Inj*) 0 mg IV .PER WAM SCORE [facility] PRN Reason: Protocol Last Admin: 03/16/17 06:19 Dose: 5 mg Morphine Sulfate (Morphine Inj (Syringe)*) 2 mg IV Q3H PRN PRN Reason: PAIN - MILD Last Admin: 03/15/17 23:26 Dose: 2 mg Multivitamins/Minerals (Theragran/Minerals Tab*) 1 tab PO DAILY [facility] Last Admin: 03/15/17 08:20 Dose: 1 tab Ondansetron HCl (Zofran Inj*) 4 mg IV Q6H PRN PRN Reason: NAUSEA Spironolactone (Aldactone Tab*) 50 mg PO DAILY [facility] Last Admin: 03/15/17 08:20 Dose: 50 mg Thiamine HCl (Vitamin B-1 Tab*) 100 mg PO DAILY [facility] Last Admin: 03/15/17 08:20 Dose: 100 mg Vital Signs 03/15/17 03/15/17 03/15/17 07:52 08:00 08:02 Temperature 99.7 F Pulse Rate 134 Respiratory 46 46 46 Rate Blood Pressure 133/77 (mmHg) O2 Sat by Pulse 94 94 Oximetry 03/15/17 03/15/17 03/15/17 08:15 08:22 09:52 Temperature 98.2 F Pulse Rate 135 Respiratory 42 42 40 Rate Blood Pressure 102/73 (mmHg) O2 Sat by Pulse 95 Oximetry 03/15/17 03/15/17 03/15/17 10:10 11:41 12:27 Temperature 98.1 F Pulse Rate 128 Respiratory 36 34 60 Rate Blood Pressure 150/78 (mmHg) O2 Sat by Pulse 98 Oximetry 03/15/17 03/15/17 03/15/17 14:00 14:51 14:56 Temperature 98.0 F Pulse Rate 128 Respiratory 38 46 48 Rate Blood Pressure 154/70 (mmHg) O2 Sat by Pulse 95 Oximetry 03/15/17 03/15/17 03/15/17 16:38 17:26 18:26 Temperature 97.7 F Pulse Rate 127 Respiratory 44 42 42 Rate Blood Pressure 131/89 (mmHg) O2 Sat by Pulse 95 Oximetry 03/15/17 03/15/17 03/15/17 18:33 19:25 20:17 Temperature 98.0 F 98.0 F 98.4 F Pulse Rate 123 123 123 Respiratory 48 28 40 Rate Blood Pressure 124/97 149/82 138/80 (mmHg) O2 Sat by Pulse 95 92 96 Oximetry 03/15/17 03/15/17 03/15/17 20:26 20:27 21:27 Temperature Pulse Rate Respiratory 45 45 40 Rate Blood Pressure (mmHg) O2 Sat by Pulse Oximetry 03/15/17 03/15/17 03/15/17 22:11 22:20 22:21 Temperature 99.0 F Pulse Rate 128 Respiratory 40 42 42 Rate Blood Pressure 140/77 (mmHg) O2 Sat by Pulse 94 Oximetry 03/15/17 03/15/17 03/15/17 22:26 23:21 23:26 Temperature Pulse Rate Respiratory 26 52 48 Rate Blood Pressure (mmHg) O2 Sat by Pulse Oximetry 03/16/17 03/16/1703/16/17 00:18 00:20 00:25 Temperature 98.1 F Pulse Rate 120 Respiratory 48 52 48 Rate Blood Pressure 133/85 (mmHg) O2 Sat by Pulse 95 Oximetry 03/16/17 03/16/17 03/16/17 00:26 01:25 01:32 Temperature Pulse Rate Respiratory 52 52 52 Rate Blood Pressure (mmHg) O2 Sat by Pulse Oximetry 03/16/17 03/16/17 03/16/17 02:11 02:17 02:32 Temperature 97.9 F Pulse Rate 122 Respiratory 52 52 52 Rate Blood Pressure 141/87 (mmHg) O2 Sat by Pulse 93 Oximetry 03/16/17 03/16/17 03/16/17 03:17 04:19 05:03 Temperature Pulse Rate Respiratory 52 52 52 Rate Blood Pressure (mmHg) O2 Sat by Pulse Oximetry 03/16/17 03/16/17 03/16/17 05:19 06:19 06:21 Temperature 97.4 F Pulse Rate 180 Respiratory 48 48 48 Rate Blood Pressure 122/79 (mmHg) O2 Sat by Pulse 94 Oximetry Oxygen Devices in Use Now: Nasal Cannula Appearance: Disheveled male, lying in bed, restless, tachypneic, encephalopathic , not ansewring appropriately, trying to get out of bed Eyes: - - icteric sclera Ears/Nose/Mouth/Throat: - - dry oral mucosa Respiratory: Symmetrical Chest Expansion and Respiratory Effort, - - fair aeration throughout all lung miller, tachypneic, no rhonchi/rales Cardiovascular: RRR - tachycardic Abdominal: - - firm, distended Skin: - - psoriatic rash and plaques - generalized Neurological: - - lethargic, restless, not answering appropriately, PEREZ Lines/Tubes/Other Access: Clean, Dry and Intact Cook - low urine output, Clean , Dry and Intact Peripheral IV Result Diagrams: 03/15/17 05:22 03/16/17 05:48 Additional Lab and Data: Lab Results 03/13/17 03/13/17 03/13/17 Range/Units 11:35 11:35 11:35 WBC 14.3 H (3.5-10.8) 10^3/ul RBC 4.38 (4.0-5.4) 10^6/ul Hgb 14.9 (14.0-18.0) g/dl Hct 44 (42-52) % MCV 101 H (80-94) fL MCH 34 H (27-31) pg MCHC 34 (31-36) g/dl RDW 15 (10.5-15) % Plt Count 118 L (150-450) 10^3/ul MPV 10 (7.4-10.4) um3 Neut % (Auto) 73.5 (38-83) % Lymph % (Auto) 16.9 L (25-47) % [place] % (Auto) 8.1 (1-9) % Eos % (Auto) 0.4 (0-6) % Baso % (Auto) 1.1 (0-2) % Absolute Neuts (auto) 10.5 H (1.5-7.7) 10^3/ul Absolute Lymphs (auto) 2.4 (1.0-4.8) 10^3/ul Absolute Monos (auto) 1.2 H (0-0.8) 10^3/ul Absolute Eos (auto) 0.1 (0-0.6) 10^3/ul Absolute Basos (auto) 0.2 (0-0.2) 10^3/ul Absolute Nucleated RBC 0.02 10^3/ul Nucleated RBC % 0.1 ESR Pending INR (Anticoag Therapy) 1.53 H (0.89-1.11) APTT 44.2 H (26.0-36.3) seconds Fibrinogen 141 (110.8-404.3) mg/dL Sodium 123 L (133-145) mmol/L Potassium 3.2 L (3.5-5.0) mmol/L Chloride 88 L (101-111) mmol/L Carbon Dioxide 23 (22-32) mmol/L Anion Gap 12 H (2-11) mmol/L BUN 2 L (6-24) mg/dL Creatinine 0.62 L (0.67-1.17) mg/dL Est GFR ( Amer) 192.1 (>60) Est GFR (Non-Af Amer) 149.4 (>60) BUN/Creatinine Ratio 3.2 L (8-20) Glucose 194 H (70-100) mg/dL Lactic Acid (0.5-2.0) mmol/L Calcium 8.5 L (8.6-10.3) mg/dL Total Bilirubin 4.40 H (0.2-1.0) mg/dL AST 348 H (13-39) U/L ALT 71 H (7-52) U/L Alkaline Phosphatase 215 H (34-104) U/L Total Creatine Kinase 674 H (10-223) U/L Troponin I 0.02 (<0.04) ng/mL C-Reactive Protein 16.73 H (< 5.00) mg/L B-Natriuretic Peptide ( - 100) pg/mL Total Protein 7.9 (6.4-8.9) g/dL Albumin 3.2 (3.2-5.2) g/dL Globulin 4.7 H (2-4) g/dL Albumin/Globulin Ratio 0.7 L (1-3) Serum Alcohol Pending 03/13/17 03/13/17 Range/Units 11:35 11:35 WBC (3.5-10.8) 10^3/ul RBC (4.0-5.4) 10^6/ul Hgb (14.0-18.0) g/dl Hct (42-52) % MCV (80-94) fL MCH (27-31) pg MCHC (31-36) g/dl RDW (10.5-15) % Plt Count (150-450) 10^3/ul MPV (7.4-10.4) um3 Neut % (Auto) (38-83) % Lymph % (Auto) (25-47) % [place] % (Auto) (1-9) % Eos % (Auto) (0-6) % Baso % (Auto) (0-2) % Absolute Neuts (auto) (1.5-7.7) 10^3/ul Absolute Lymphs (auto) (1.0-4.8) 10^3/ul Absolute Monos (auto) (0-0.8) 10^3/ul Absolute Eos (auto) (0-0.6) 10^3/ul Absolute Basos (auto) (0-0.2) 10^3/ul Absolute Nucleated RBC 10^3/ul Nucleated RBC % ESR INR (Anticoag Therapy) (0.89-1.11) APTT (26.0-36.3) seconds Fibrinogen (110.8-404.3) mg/dL Sodium (133-145) mmol/L Potassium (3.5-5.0) mmol/L Chloride (101-111) mmol/L Carbon Dioxide (22-32) mmol/L Anion Gap (2-11) mmol/L BUN (6-24) mg/dL Creatinine (0.67-1.17) mg/dL Est GFR ( Amer) (>60) Est GFR (Non-Af Amer) (>60) BUN/Creatinine Ratio (8-20) Glucose (70-100) mg/dL Lactic Acid 4.1 H* (0.5-2.0) mmol/L Calcium (8.6-10.3) mg/dL Total Bilirubin (0.2-1.0) mg/dL AST (13-39) U/L ALT (7-52) U/L Alkaline Phosphatase (34-104) U/L Total Creatine Kinase (10-223) U/L Troponin I (<0.04) ng/mL C-Reactive Protein (< 5.00) mg/L B-Natriuretic Peptide 35 ( - 100) pg/mL Total Protein (6.4-8.9) g/dL Albumin (3.2-5.2) g/dL Globulin (2-4) g/dL Albumin/Globulin Ratio (1-3) Serum Alcohol Microbiology and Other Data: Microbiology 03/13/17 14:00 Sterile Body Fluid Culture - Preliminary Peritoneal Fluid No Growth Day 1 Sterile Body Fluid Culture - Preliminary No Growth Day 1 Assess/Plan/Problems-Billing Assessment: Mr. Blankenship is a 32 yo male patient with a PMH significant for longterm alcohol abuse, depression, and psoriasis who presented to the ED on 03/13 with concern for SOB secondary to massive ascites and alcoholic hepatitis. - Patient Problems (1) Alcoholic hepatitis with ascites Code(s): K70.11 - ALCOHOLIC HEPATITIS WITH ASCITES Comment: Patient presented with massive ascites, fluid sent for testing. Therapeutic US guided paracentesis ordered. Fluid WBC and neutrophil count unremarkable. 2L off from bedside paracentesis on 03/13 and additional 2L off on 03/14. Lasix and spironolactone started, pt on fluid restriction. Low sodium diet. Appreciate gastroenterology consult. Liver US shows hepatomegaly and hepatosteatosis. Vitamin K given for coagulopathy Continue supportive care. (2) Hepatic encephalopathy Code(s): K72.90 - HEPATIC FAILURE, UNSPECIFIED WITHOUT COMA Comment: Complicated by acute ETOH withdrawal Continue lactulose, increase TID to QID (3) Hyponatremia Code(s): E87.1 - HYPO-OSMOLALITY AND HYPONATREMIA Comment: Improving Suspect secondary to liver disease and alcohol use 1200 mL free water restriction Continue to trend. (4) Lactic acidosis Code(s): E87.2 - ACIDOSIS Comment: Suspect secondary to liver disease and hypoxia (5) Hypokalemia Status: Acute Code(s): E87.6 - HYPOKALEMIA Comment: Resolved. (6) Alcohol abuse Code(s): F10.10 - ALCOHOL ABUSE, UNCOMPLICATED Comment: Now in active withdrawal, scoring consistently with WAM protocol. Continue prn lorazepam (increased scale dosing), continue Librium. Patient carries a ~15+ year hx of ETOH abuse with previous rehab attempts. Patient recently prescribed disulfiram and acamprosate by PCP but did not start these medications. SW consult (7) Depression Code(s): F32.9 - MAJOR DEPRESSIVE DISORDER, SINGLE EPISODE, UNSPECIFIED Comment: Not currently treated Patient prescribed SSRI but has not started secondary to ETOH use (8) Psoriasis Code(s): L40.9 - PSORIASIS, UNSPECIFIED Comment: Continue outpatient follow-up with dermatology (9) DVT prophylaxis Comment: Coagulopathy secondary to liver disease SCDs ordered Status and Disposition: Inpatient admission. No immediate discharge planning. Transfer to ICU for closer monitoring and potential for higher level of intervention.
[2017-03-16 08:10] LABS: Hematocrit 40 % (42-52); Hemoglobin 13.7 g/dl (14.0-18.0); Mean Corpuscular HGB Conc 34 g/dl (31-36); Mean Corpuscular Hemoglobin 34 pg (27-31); Mean Corpuscular Volume 102 fL (80-94); Red Blood Count 3.97 10^6/ul (4.0-5.4); Red Cell Distribution Width 15 % (10.5-15); White Blood Count 13.2 10^3/ul (3.5-10.8)
[2017-03-16 08:14] LABS: PCO2 Arterial 32 mmHg (35-45)
[2017-03-16 08:26] LABS: Add Diff/Slide Review? Slide Review Added; Comments Flag Yes
[2017-03-16] MEDS: Multivitamins/Minerals TAB PO SCH (08:35)
[2017-03-16] MEDS: chlordiazePOXIDE CAP* 25 MG PO SCH ×2 (08:35→22:16)
[2017-03-16] MEDS: Spironolactone TAB* 25 MG PO SCH (08:35)
[2017-03-16] MEDS: Folic Acid TAB* 1 MG PO SCH (08:35)
[2017-03-16] MEDS: Thiamine TAB* 100 MG TAB PO SCH (08:36)
[2017-03-16 08:46] LABS: Mean Platelet Volume 11 um3 (7.4-10.4)
--- NOTE | 2017-03-16 08:56 | RAD ---
Single frontal view of the chest performed at 0823 hours was reviewed. Comparison is made with previous exam dated March 13, 2017. Cardiomegaly is noted. No pleural fluid, pneumonia or pneumothorax is noted with likely bibasilar atelectasis and poor inspiration. IMPRESSION: CARDIOMEGALY. LIKELY RIGHT BASILAR ATELECTASIS.
[2017-03-16 10:25] LABS: BF PH 7.8
[2017-03-16] MEDS ORDERED: Albumin Human 5%* 250 ML BTL IV ONE ×2 (10:28→10:41)
[2017-03-16] MEDS ORDERED: Norepinephrine 16MCG/ML IVPRE* 4,000 MCG/250 ML BAG IV ONE (10:44)
[2017-03-16] MEDS ORDERED: methylPREDNISolone 125 MG* 2 ML VIAL IV ONE (10:45)
[2017-03-16] MEDS ORDERED: Propofol* 100 ML ONE (10:45)
[2017-03-16] MEDS ORDERED: NS 0.9% 1000 ML* 3,000 ML IV ONE (10:46)
[2017-03-16] MEDS ORDERED: Norepinephrine 16MCG/ML IVPRE* 4,000 MCG/250 ML BAG IV SCH (11:00)
--- NOTE | 2017-03-16 11:09 | PN ---
Hospitalist Progress Note Patient transferred to ICU. Echocardiogram ordered with concern for heart failure and ETOH induced cardiomyopathy. Case reviewed with Dr. Reeder. Plan for transfer of care to guide travel.
[2017-03-16] MEDS ORDERED: Succinylcholine* 20 MG/ML 10 ML VIAL ONE (11:10)
[2017-03-16] MEDS ORDERED: Propofol* 10 MG/ML 20 ML BTL IV PUSH ONE (11:16)
[2017-03-16] MEDS ORDERED: KETAMINE HCL* 50 MG/ML 10 ML VIAL ONE (11:16)
[2017-03-16] MEDS ORDERED: fentaNYL* 50 MCG/ML 5 ML VIAL (250 MCG VIAL) ONE (11:16)
[2017-03-16] MEDS: Chlorhexidine MOUTHWASH 0.12%* 15 ML UDC TOPICAL SCH ×4 (12:35→22:04)
[2017-03-16] MEDS: Propofol* 100 ML IV SCH ×6 (13:10→22:02)
[2017-03-16] MEDS: NS 0.9% 1000 ML* 3,000 ML IV ONE ×5 (13:10→17:20)
--- NOTE | 2017-03-16 13:50 | PN ---
Progress Note - Progress Note Note: CRITICAL CARE MEDICINE PROCEDURE NOTE DATE: 03/16/17 TIME: 1110 SERVICE: Critical Care Medicine LOCATION OF PROCEDURE: ICU PROCEDURE: Endotracheal intubation PROCEDURALIST: Dr. Reeder Consent obtain: Yes, d/w pts Time out held: Not indicated INDICATION: Multisystem organ failure with high metabolic demands and resp failure sec to this. PROCEDURE: Oxygenation maintained and vitals monitored. Patient in supine position. Pre-medication with fentanyl 200mcg; ketamine 200mg, and propofol 100mg total. Glidescope #3 inserted with Grade 1 view obtained. 8.5 endotracheal tube inserted to 23cm teeth. Good chest rise with breath sounds appreciated in bilaterally lung miller. EtCO2 + color change. Portable chest x-ray pending. Patient otherwise tolerated well. Pts was present throughout. Pedro Reeder DO
--- NOTE | 2017-03-16 14:10 | CONSULT ---
Consult Consult: CRITICAL CARE MEDICINE DATE: 03/16/17 TIME: 1200 REFERRING PROVIDER: Carlos REASON/CHIEF COMPLAINT: MSOF HISTORY OF PRESENT ILLNESS: 32 M with h/o alcoholism, depression, skin psoriasis presenting on the 10th with sob and etoh hepatitis. Started to have escalating withdrawal with MODs during his stay now transferred to ICU. REVIEW OF SYSTEMS: Limited sec to acuity. PAST MEDICAL HISTORY: As per HPI. MEDICATIONS: Current, Reviewed. ALLERGIES: NKDA SOCIAL HISTORY: . FAMILY HISTORY: Noncontributory at present. PHYSICAL EXAM: Vital Signs: Reviewed. Hr 120s, RR 40s, SBP 110 Neurologic: awake, attempts communication, but encephalopathic HEENT: icteric, mm dry; spencer Cardiovascular: distant, tachy, Respiratory: dec and tachypnic Abdomen: obese, distended, fluid wave but not too tense Extremities: dep edema; psoriasis Access: piv LABS: Reviewed. Laboratory Last Values WBC 13.2 10^3/ul (3.5-10.8) H 03/16/17 08:00 RBC 3.97 10^6/ul (4.0-5.4) L 03/16/17 08:00 Hgb 13.7 g/dl (14.0-18.0) L 03/16/17 08:00 Hct 40 % (42-52) L 03/16/17 08:00 MCV 102 fL (80-94) H 03/16/17 08:00 MCH 34 pg (27-31) H 03/16/17 08:00 MCHC 34 g/dl (31-36) 03/16/17 08:00 RDW 15 % (10.5-15) 03/16/17 08:00 Plt Count 178 10^3/ul (150-450) 03/16/17 08:00 MPV 11 um3 (7.4-10.4) H 03/16/17 08:00 Neut % (Auto) 80.6 % (38-83) 03/16/17 08:00 Lymph % (Auto) 9.7 % (25-47) L 03/16/17 08:00 [place] % (Auto) 8.9 % (1-9) 03/16/17 08:00 Eos % (Auto) 0.2 % (0-6) 03/16/17 08:00 Baso % (Auto) 0.6 % (0-2) 03/16/17 08:00 Absolute Neuts (auto) 10.7 10^3/ul (1.5-7.7) H 03/16/17 08:00 Absolute Lymphs (auto) 1.3 10^3/ul (1.0-4.8) 03/16/17 08:00 Absolute Monos (auto) 1.2 10^3/ul (0-0.8) H 03/16/17 08:00 Absolute Eos (auto) 0 10^3/ul (0-0.6) 03/16/17 08:00 Absolute Basos (auto) 0.1 10^3/ul (0-0.2) 03/16/17 08:00 Absolute Nucleated RBC 0 10^3/ul 03/16/17 08:00 Nucleated RBC % 0 03/16/17 08:00 ESR 32 mm/Hr (0-14) H 03/13/17 11:35 INR (Anticoag Therapy) 1.58 (0.89-1.11) H 03/14/17 05:14 APTT 44.2 seconds (26.0-36.3) H 03/13/17 11:35 Fibrinogen 141 mg/dL (110.8-404.3) 03/13/17 11:35 Patient Temperature Not Reportable 03/15/17 18:58 ABG pH 7.49 (7.35-7.45) H 03/16/17 08:01 ABG pCO2 32 mmHg (35-45) L 03/16/17 08:01 ABG pO2 71 mmHg (80-100) L 03/16/17 08:01 ABG HCO3 26.2 mmol/L (19-31) 03/16/17 08:01 ABG O2 Saturation 98.0 % (95-98) 03/16/17 08:01 ABG Base Excess 1.7 (-2.0-2.0) 03/16/17 08:01 Respiration Rate Not Reportable 03/15/17 18:58 O2 Delivery Device nc 03/15/17 18:58 Ventilator Type Not Reportable 03/15/17 18:58 Vent Mode Not Reportable 03/15/17 18:58 FiO2 28 03/15/17 18:58 Inspiratory Time Not Reportable 03/15/17 18:58 PEEP Not Reportable 03/15/17 18:58 Pressure Support Not Reportable 03/15/17 18:58 Pressure Control Not Reportable 03/15/17 18:58 EPAP Not Reportable 03/15/17 18:58 IPAP Not Reportable 03/15/17 18:58 BiPAP Not Reportable 03/15/17 18:58 Sodium 128 mmol/L (133-145) L 03/16/17 05:48 Potassium 3.9 mmol/L (3.5-5.0) 03/16/17 05:48 Chloride 95 mmol/L (101-111) L 03/16/17 05:48 Carbon Dioxide 23 mmol/L (22-32) 03/16/17 05:48 Anion Gap 10 mmol/L (2-11) 03/16/17 05:48 BUN 7 mg/dL (6-24) 03/16/17 05:48 Creatinine 0.89 mg/dL (0.67-1.17) 03/16/17 05:48 Est GFR ( Amer) 126.6 (>60) 03/16/17 05:48 Est GFR (Non-Af Amer) 98.4 (>60) 03/16/17 05:48 BUN/Creatinine Ratio 7.9 (8-20) L 03/16/17 05:48 Glucose 107 mg/dL (70-100) H 03/16/17 05:48 Hemoglobin A1c 6.3 % (Less than 6.0) H 03/13/17 11:35 Osmolality 332 mOsm/kg (275 - 295) H 03/13/17 11:35 Lactic Acid 3.2 mmol/L (0.5-2.0) H* 03/16/17 08:00 Calcium 8.4 mg/dL (8.6-10.3) L 03/16/17 05:48 Magnesium 1.5 mg/dL (1.9-2.7) L 03/13/17 11:35 Total Bilirubin 10.60 mg/dL (0.2-1.0) H D 03/16/17 05:48 Direct Bilirubin 6.70 mg/dL (0.03-0.18) H 03/16/17 05:48 Indirect Bilirubin 3.9 mg/dL (0.3-1.0) H 03/16/17 05:48 AST 239 U/L (13-39) H 03/16/17 05:48 ALT 53 U/L (7-52) H 03/16/17 05:48 Alkaline Phosphatase 165 U/L (34-104) H 03/16/17 05:48 Ammonia 89 mol/L (16-53) H 03/16/17 05:48 Total Creatine Kinase 674 U/L (10-223) H 03/13/17 11:35 Troponin I 0.02 ng/mL (<0.04) 03/13/17 11:35 C-Reactive Protein 16.73 mg/L (< 5.00) H 03/13/17 11:35 B-Natriuretic Peptide 35 pg/mL (-100) 03/13/17 11:35 Total Protein 7.1 g/dL (6.4-8.9) 03/16/17 05:48 Albumin 2.9 g/dL (3.2-5.2) L 03/16/17 05:48 Globulin 4.2 g/dL (2-4) H 03/16/17 05:48 Albumin/Globulin Ratio 0.7 (1-3) L 03/16/17 05:48 Urine Color Shaina 03/13/17 16:10 Urine Appearance Clear 03/13/17 16:10 Urine pH 6.0 (5-9) 03/13/17 16:10 Ur Specific [place] 1.010 (1.010-1.030) 03/13/17 16:10 Urine Protein Negative (Negative) 03/13/17 16:10 Urine Ketones Negative (Negative) 03/13/17 16:10 Urine Blood Negative (Negative) 03/13/17 16:10 Urine Nitrate Negative (Negative) 03/13/17 16:10 Urine Bilirubin Negative (Negative) 03/13/17 16:10 Urine Urobilinogen Negative (Negative) 03/13/17 16:10 Ur Leukocyte Esterase Negative (Negative) 03/13/17 16:10 Ur Random Creatinine 591.53 mg/dL 03/15/17 19:35 Ur Random Sodium < 18 mmol/L 03/15/17 19:35 Urine Glucose 1+(50 mg/dl) (Negative) H 03/13/17 16:10 Fluid Source Peritoneal 03/13/17 14:00 Fluid Volume 30 mL 03/13/17 14:00 Fluid Color Yellow 03/13/17 14:00 Fluid Appearance Clear 03/13/17 14:00 Fluid pH 7.8 03/13/17 14:00 Fluid WBC 50 /mcL ([id number]) 03/13/17 14:00 Fluid RBC 17 /mcL 03/13/17 14:00 Fluid Tot Cell Count 100 03/13/17 14:00 Fluid Neutrophils 8 % 03/13/17 14:00 Fluid Lymphocytes 64 % 03/13/17 14:00 Fluid Monocytes 28 % 03/13/17 14:00 Fluid Other Cells 12 03/13/17 14:00 Fluid Cell Count Rvw By 03/13/17 14:00 Serum Alcohol 401 mg/dL (<10) H* 03/13/17 11:35 Hepatitis C Antibody Nonreactive (Nonreactive) 03/15/17 05:05 IMAGING: Reviewed. MEDICATIONS: Reviewed. ASSESSMENT: 32 M with MSOF Acute hepatic encephalopathy, mod degree Acute alcohol withdrawal/delirium tremens Acute respiratory failure sec to metabolic demand Acute alcoholic hepatitis Acute liver failure Lactic acidosis Coagulopathy Acute oliguric renal failure Malnutrition mod degree PLAN: Neurologic: needs tx for Dts and encephalopathy: intubation and utilize propofol. prns. mvi. lactulose and rifaximin. Cardiovascular: High metabiolic demands and concerns for high output failure. Needs considerable intravascular volume challenge and may need levophed. If otherwise tolerating will consider midodrine and octerotide, prior to re- thinking aldactone/lasix needs ultimately. needs cvc Respiratory: cannot maintain. airway protection and mv for now to see if we can help save his organ dysfunctions. aprv Gastrointestinal: ogt post intubation. sup. tf. f/u lfts as this remains of grave concern. steroids. lactulose and rifaximin. hold off on para, but may still need to foter recover soon. Meld is probably mid 20s but not reflective of his clinical status at present and high potential to worsen in known alcoholism. Renal/Metabolic: oliguria to anuria quite concerning. ventures as above. Infectious Disease: no sbp noted but at risk. f/u needs. Hematology: anemia and plt may worsen. not on chemical vte prophylaxis yet. f/u coags. Endocrine: start solumedrol and convert to prednisolone if able to absorb po. f/ u bg Musculoskeletal: bedrest today. f/u skin needs. Psych/Social: was updated. may be in denial. will support. Supportive and preventative care as ordered. SUP: ppi VTE prophylaxis: scds Cook catheter given critical illness, monitoring needs for accurate assessment of JAVIER and KDIGO criteria for critically ill patients and to avoid potential harms of urinary retention, skin breakdown/ulcers. Restraints: May be required. Disposition: ICU; morbidity and mortality quite high Code Status: Full Critical Care Time: 45min, excl procedures F. Reji Reeder DO
--- NOTE | 2017-03-16 14:22 | RAD ---
HISTORY: Post intubation COMPARISONS: March 16, 2017 at 7:25 AM VIEWS:1: Single frontal portable view of the chest at 1:41 PM FINDINGS: LINES AND TUBES: An endotracheal tube is noted with the tip overlying the trachea at the level of clavicles. CARDIOMEDIASTINAL SILHOUETTE: The cardiomediastinal silhouette is normal for portable technique. PLEURA: The costophrenic angles are sharp. No pleural abnormalities are noted. LUNG PARENCHYMA: The lung volumes are low. There is patchy linear opacification of the lung bases bilaterally. There is prominence of the central pulmonary vasculature ABDOMEN: The upper abdomen is clear. There is no subphrenic gas. BONES AND SOFT TISSUES: No bone or soft tissue abnormalities are noted. IMPRESSION: 1. LINES AND TUBES ABOVE. 2. LOW LUNG VOLUMES WITH BILATERAL LINEAR ATELECTASIS. 3. PROMINENCE OF THE CENTRAL PULMONARY VASCULATURE SUGGESTIVE OF PULMONARY VASCULAR CONGESTION, THOUGH THIS MAY BE ARTIFACTUALLY ACCENTUATED BY LOW LUNG VOLUMES
[2017-03-16] MEDS ORDERED: LORazepam INJ* 2 MG/ML 1 ML VIAL IV PUSH PRN (15:45)
--- NOTE | 2017-03-16 16:29 | RAD ---
Indication: Orogastric tube placement, endotracheal tube placement Single frontal view of the chest performed at 1546 hours was reviewed. Comparison is made with previous exam dated March 16, 2017. No mediastinal shift is noted. Heart is of normal size and configuration. Lung miller appear clear. Endotracheal tube appears to BE in appropriate position at the prostate T3. Nasogastric tube is below the diaphragm. IMPRESSION: NO ACTIVE CARDIOPULMONARY DISEASE IS NOTED. ET TUBE AND NG TUBE APPEAR IN APPROPRIATE LOCATION.
[2017-03-16] MEDS: methylPREDNISolone SOD 40 MG* 1 ML VIAL IV SCH (19:47)
[2017-03-16] MEDS: RiFAXimin* 550 MG TAB G TUBE SCH (22:03)
[2017-03-16] MEDS: chlordiazePOXIDE CAP* 25 MG G TUBE SCH (22:03)
[2017-03-17] MEDS: Propofol* 100 ML IV SCH ×9 (00:18→23:53)
[2017-03-17] MEDS: methylPREDNISolone SOD 40 MG* 1 ML VIAL IV SCH ×3 (03:32→18:31)
[2017-03-17] MEDS: Chlorhexidine MOUTHWASH 0.12%* 15 ML UDC TOPICAL SCH ×6 (03:42→23:55)
[2017-03-17 05:59] LABS: Hematocrit 37 % (42-52); Hemoglobin 12.9 g/dl (14.0-18.0); Mean Corpuscular HGB Conc 35 g/dl (31-36); Mean Corpuscular Hemoglobin 37 pg (27-31); Mean Corpuscular Volume 105 fL (80-94); Mean Platelet Volume 11 um3 (7.4-10.4); Red Blood Count 3.49 10^6/ul (4.0-5.4); Red Cell Distribution Width 16 % (10.5-15); White Blood Count 13.2 10^3/ul (3.5-10.8)
[2017-03-17 07:48] LABS: BUN/Creatinine Ratio 11.1 (8-20); Calcium 7.7 mg/dL (8.6-10.3); Direct Bilirubin 3.9 mg/dL (0.03-0.18); EGFR African American 92.3 (>60); EGFR Non-African American 71.8 (>60); Globulin 3.3 g/dL (2-4); Indirect Bilirubin 3.5 mg/dL (0.3-1.0); Phosphorus 2.4 mg/dL (2.5-5.0); Potassium 4.6 mmol/L (3.5-5.0); Total Bilirubin 7.4 mg/dL (0.2-1.0); Total Protein 6.3 g/dL (6.4-8.9)
--- NOTE | 2017-03-17 09:54 | PN ---
Progress Note - Progress Note Note: CRITICAL CARE MEDICINE DATE: 03/17/17 TIME: 825 SUBJECTIVE: Patient seen and examined. PHYSICAL EXAM: Vital Signs: Reviewed. Hr 80-90s, RR 20s, SBP >100 Neurologic: awakens slightly but on prop. HEENT: icteric, mm dry; ett in place. Cardiovascular: distant Respiratory: dec but overbreathing. no wheeze Abdomen: obese, distention increased. fluid wave and a bit more taunt but not tense Extremities: dep edema; psoriasis Access: R picc LABS: Reviewed. IMAGING: Reviewed. MEDICATIONS: Reviewed. ASSESSMENT: 32 M with MSOF Acute hepatic encephalopathy, mod degree Acute alcohol withdrawal/delirium tremens Acute respiratory failure sec to metabolic demand Acute alcoholic hepatitis Acute liver failure Lactic acidosis Coagulopathy Acute oliguric renal failure Malnutrition mod degree PLAN: Neurologic: Dts better controlled with high dose propofol. on gtube librium continued and suppl. can dec prop slightly today but can forgo full holiday inlight of needs to treat Dts. Hepatic encephalopathy will persist and amm level quite high with poor clearance.lactulose and rifaximin. Cardiovascular: Less metabolic demands. perfusing and volume status holding intravsacular and overload interstially. Can trial midodrine and octreotide for what it could be worth today to foster some renal recovery state; prior to ultimate diuretic challenges. Respiratory: APRV. Dec FiO2. better with cpap mechanics. Gastrointestinal: bili has at least diluted and INR at 1.7. Hopefully towards liver recoverability. Will look to perform para tomorrow or when making progress. Renal/Metabolic: anuria,no surprise now. waiting out. f/u lytes. kruse Infectious Disease: no abx. f/u needs. Hematology: anemia ok, and plts dropped. not on chemical vte prophylaxis still. f/u coags. Endocrine: on solumedrol and convert to prednisolone if able to absorb po. f/u bg Musculoskeletal: bedrest currently. f/u skin needs. Psych/Social: palliative support. Supportive and preventative care as ordered. SUP: ppi VTE prophylaxis: scds Kruse catheter given critical illness, monitoring needs for accurate assessment of JAVIER and KDIGO criteria for critically ill patients and to avoid potential harms of urinary retention, skin breakdown/ulcers. Disposition: ICU; morbidity and mortality quite high Code Status: Full Critical Care Time: 35min FStephania Reeder DO
[2017-03-17] MEDS: Multivitamins ADULT w/MIN LIQ* 15 ML UDC G TUBE SCH (10:06)
[2017-03-17] MEDS: chlordiazePOXIDE CAP* 25 MG G TUBE SCH ×3 (10:07→21:35)
[2017-03-17] MEDS: Thiamine TAB* 100 MG TAB PO SCH (10:07)
[2017-03-17] MEDS: Folic Acid TAB* 1 MG PO SCH (10:07)
[2017-03-17] MEDS: RiFAXimin* 550 MG TAB G TUBE SCH ×2 (10:10→21:36)
[2017-03-17] MEDS ORDERED: Phytonadione Oral Solution* 5 MG/25 ML UDC PO ONE (11:27)
[2017-03-17] MEDS: Morphine INJ* 2 MG/ML 1 ML SYRINGE IV PRN ×2 (11:30→21:36)
--- NOTE | 2017-03-17 13:16 | CONS ---
CC: Kathy Tovar MD * PALLIATIVE CARE CONSULTATION: DATE OF CONSULT: 03/17/17 PRIMARY CARE PHYSICIAN: Kathy Tovar MD REFERRING PHYSICIAN: Linwood Reeder D.O. HOSPITAL COURSE: This is a 32-year-old male with a past medical history of alcohol abuse and depression, who presented to the emergency room on the with shortness of breath. At that time in the emergency room, he was found to have significant amount of ascites, lactic acidosis, transaminitis, and an elevated alcohol level. On admission, the patient was empirically covered for SBP. They attempted a paracentesis but were unable to do a therapeutic drainage at that time. He was placed on a VAM protocol and admitted to the floor. GI consultation occurred and Dr. Flores saw and evaluated the patient. It appears that he had another paracentesis done that was more successful on the that drained 2 L. He had been tachypneic on the floor. The patient continuing to get diuresed, on fluid restriction to help with his ascites which was felt to be contributing to the shortness of breath. Due to his persistent tachypnea, he was transferred to the ICU for closer monitoring. Dr. Reeder evaluated the patient that afternoon and patient was intubated and he took over service on the . Patient also of note was starting to have symptoms of alcohol withdrawal and was also having moderate hepatic encephalopathy. Patient was also noted to have continuous oliguria and now more anuric renal failure. On my encounter, patient is intubated and sedated on propofol. His is not currently at the bedside. I did speak with Dr. Reeder and the nurse at the bedside who state he has had a longstanding history of alcohol use and according to the , she is not sure how much he has been drinking. She does note that when he would try and cut down, he would have to drink a drink an hour in the setting of cutting down. Dr. Reeder had asked Palliative Care to get involved for the concern of his worsening liver failure in the setting of renal failure and oliguria with a poor prognosis. PAST MEDICAL HISTORY: 1. Alcohol abuse. 2. Depression. 3. Psoriasis. This hospital course is complicated by hepatic encephalopathy, alcohol withdrawal and delirium, respiratory failure, alcoholic hepatitis, liver failure , lactic acidosis, coagulopathy, acute oliguric renal failure, and malnutrition. INPATIENT MEDICATIONS: 1. Folic acid 1 mg daily. 2. Levophed drip. 3. Ativan 2 mg q. 2 hours. 4. Lactulose 30 mL p.o. q.i.d. 5. Morphine 2 mg q. 3 hours as needed. 6. Multivitamin daily. 7. Zofran 4 mg every 6 hours. 8. Propofol drip. 9. Rifaximin 550 mg b.i.d. 10. Thiamine 100 mg daily. 11. Ziprasidone as needed. 12. Chlordiazepoxide 25 mg t.i.d. 13. Benadryl 50 mg every 6 hours. 14. Fentanyl 50 mcg every 2 hours as needed. 15. Methylprednisolone 40 mg q.8 hours. ALLERGIES: No known drug allergies. FAMILY HISTORY: Grandparents with history of alcohol abuse in the past. SOCIAL HISTORY: According to the notes, the patient is . He has 2 small children. His is Pearl Mcdermott and his friend who I believe is the secondary proxy is Remington Mcnulty. 's phone number is [phone], area code 917. Remington Caballerover's number is [phone]. As mentioned, longstanding history of alcohol use, unclear duration or quantity at this time. No history of tobacco or other illicit drug use. REVIEW OF SYSTEMS: Unable to obtain due to patient is intubated and sedated. PHYSICAL EXAM: Vitals: Temp 98.6, pulse rate 86, respiratory rate 12, oxygen saturation 95% on 60% FiO2 on mechanical ventilation, blood pressure 106/53. General: The patient is sedated, not making any spontaneous movements. Pupils are pinpoint and minimally reactive. Conjunctivae are icteric. Head is normocephalic. Oropharynx: The patient was intubated with ET tube in place. Cardiac: Regular rate and rhythm. Soft systolic murmur. Respiratory: Diminished breath sounds. No wheezes, rhonchi or rales. Abdomen: He has a tense, distended, moderately firm abdomen, with hypoactive bowel sounds. Extremities: +2 pretibial edema. Diffuse anasarca. Neurologic: Sedated, not making any spontaneous movements. According to his nurse, minimal gag reflex, minimal movements with repositioning. Derm: The patient is noted to have dry, exfoliative, diffuse patch scalp, skin changes. DIAGNOSTIC STUDIES/LAB DATA: White count 13.2, hemoglobin 12.9, hematocrit 37, platelets 102. INR 1.7. Sodium 123, potassium 3.2, chloride 88, BUN 13, creatinine 1.17, glucose 156, total bilirubin 7.4. Ammonia is 240. AST 170, ALT is 39, albumin is 3. Alcohol level on admission on the was 401. Hepatitis C and HIV antibodies are negative. ASSESSMENT: This is a 32-year-old male with longstanding history of alcohol abuse who presented to the emergency room with shortness of breath suspected to be secondary to significant ascites and anasarca, became decompensated on the floor, went into respiratory failure with encephalopathy and is now intubated with worsening renal failure and liver failure and concern for a poor prognosis. I have not been able to reach the at this time but I will follow up with her to talk about goals of care and to see if patient can get through this critically ill state. Our social work specialist and our assembler camper services are available to her as well and we will ensure that she has a good support system in place to help her through this difficult time. Thank you for this consultation. I will follow up with the and follow along with you. PATIENT TIME: Greater than 60 minutes was spent doing consultation, more than half that time spent in direct patient contact. [id number]/CPS #: [id number] PHILLIP
[2017-03-17] MEDS: Octreotide Acetate* 100 MCG/ML 1 ML VIAL SUBCUT SCH ×2 (13:24→21:36)
[2017-03-17] MEDS: CMC:Midodrine (NF) 5 MG TAB PO SCH ×2 (13:24→21:36)
[2017-03-18] MEDS: Propofol* 100 ML IV SCH ×10 (01:26→23:34)
[2017-03-18] MEDS: methylPREDNISolone SOD 40 MG* 1 ML VIAL IV SCH ×3 (03:19→17:22)
[2017-03-18] MEDS: Chlorhexidine MOUTHWASH 0.12%* 15 ML UDC TOPICAL SCH ×6 (03:19→21:51)
[2017-03-18 06:12] LABS: Hematocrit 39 % (42-52); Hemoglobin 13.2 g/dl (14.0-18.0); Mean Corpuscular HGB Conc 34 g/dl (31-36); Mean Corpuscular Hemoglobin 36 pg (27-31); Mean Corpuscular Volume 105 fL (80-94); Mean Platelet Volume 10 um3 (7.4-10.4); Red Cell Distribution Width 15 % (10.5-15); White Blood Count 13.2 10^3/ul (3.5-10.8)
[2017-03-18 06:29] LABS: Albumin 3.2 g/dL (3.2-5.2); Calcium 8.1 mg/dL (8.6-10.3); EGFR African American 66.2 (>60); EGFR Non-African American 51.5 (>60); Globulin 3.7 g/dL (2-4); Magnesium 2.5 mg/dL (1.9-2.7); Phosphorus 3.6 mg/dL (2.5-5.0); Potassium 5.3 mmol/L (3.5-5.0); Total Bilirubin 5.2 mg/dL (0.2-1.0); Total Protein 6.9 g/dL (6.4-8.9)
[2017-03-18] MEDS: chlordiazePOXIDE CAP* 25 MG G TUBE SCH ×3 (07:48→21:50)
[2017-03-18] MEDS: Multivitamins ADULT w/MIN LIQ* 15 ML UDC G TUBE SCH (07:48)
[2017-03-18] MEDS: Thiamine TAB* 100 MG TAB PO SCH (07:48)
[2017-03-18] MEDS: CMC:Midodrine (NF) 5 MG TAB PO SCH ×3 (07:48→21:50)
[2017-03-18] MEDS: Folic Acid TAB* 1 MG PO SCH (07:48)
[2017-03-18] MEDS: RiFAXimin* 550 MG TAB G TUBE SCH ×2 (07:48→21:51)
[2017-03-18] MEDS: fentaNYL* 50 MCG/ML 2 ML VIAL (100 MCG VIAL) IV SLOW PU PRN ×2 (08:04→11:04)
[2017-03-18 08:09] LABS: BUN/Creatinine Ratio 12.8 (8-20)
[2017-03-18] MEDS: Octreotide Acetate* 100 MCG/ML 1 ML VIAL SUBCUT SCH ×3 (08:14→21:51)
--- NOTE | 2017-03-18 10:59 | PN ---
Progress Note - Progress Note Note: CRITICAL CARE MEDICINE DATE: 03/18/17 TIME: 830 SUBJECTIVE: Patient seen and examined. PHYSICAL EXAM: Vital Signs: Reviewed. Hr 80-90s, RR teens, SBP >100 Neurologic: awakens and follows simple commands on prop. HEENT: icteric, mmm; ett in place. Cardiovascular: distant Respiratory: dec but stable on Phigh 25, overbreathing slightly. Abdomen: obese, distention. ascites. Extremities: + edema; psoriasis Access: R picc LABS: Reviewed. IMAGING: Reviewed. MEDICATIONS: Reviewed. ASSESSMENT: 32 M with MSOF Acute hepatic encephalopathy, mod degree still Acute alcohol withdrawal/delirium tremens - better Acute respiratory failure sec to metabolic demand Acute alcoholic hepatitis - better Acute liver failure - better Lactic acidosis - resolved Coagulopathy - improved Acute oliguric renal failure Malnutrition mod degree PLAN: Neurologic: Dts better. lower propofol needs. keep gtube librium. Forgo full holiday inlight of needs to treat Dts. Full sedation holiday tomorrow. Hepatic encephalopathy will persist and amm level remains with poor clearance. lactulose and rifaximin. Cardiovascular: demands stable. perfusing. Volume status overload interstially and not ready for diuretics yet. Continued midodrine and octreotide. Respiratory: APRV. Dec FiO2. spont breathing Gastrointestinal: bili better. inr better. perform para over the weekend if hopefully recovering from renal dynamics further towards ventilation improvements. Renal/Metabolic: slight inc uout and f/u. f/u lytes. add kayexelate. kruse Infectious Disease: no abx. f/u needs. Hematology: anemia ok. plts holding. hsq. Endocrine: on solumedrol. Musculoskeletal: bedrest currently. f/u skin needs. oob tomorrow. Psych/Social: palliative support and follow. updated Supportive and preventative care as ordered. SUP: ppi VTE prophylaxis: scds Kruse catheter given critical illness, monitoring needs for accurate assessment of JAVIER and KDIGO criteria for critically ill patients and to avoid potential harms of urinary retention, skin breakdown/ulcers. Disposition: ICU; morbidity and mortality quite high Code Status: Full Critical Care Time: 35min FStephania Reeder DO
[2017-03-18] MEDS: Heparin VIAL(*) 5000 UNITS/ML VIAL (FIVE THOUSAND) SUBCUT SCH ×2 (13:30→21:51)
[2017-03-18] MEDS: Lansoprazole susp Kit 3 MG/ML (30 MG = 10 ML) G TUBE SCH (13:40)
[2017-03-18] MEDS: Sodium Polystyrene ORAL.SOL* 15 GM/60 ML BTL G TUBE SCH (21:51)
[2017-03-19] MEDS: Propofol* 100 ML IV SCH ×5 (02:16→20:54)
[2017-03-19] MEDS: methylPREDNISolone SOD 40 MG* 1 ML VIAL IV SCH ×3 (03:16→20:55)
[2017-03-19] MEDS: Chlorhexidine MOUTHWASH 0.12%* 15 ML UDC TOPICAL SCH ×6 (03:16→21:54)
[2017-03-19] MEDS: Heparin VIAL(*) 5000 UNITS/ML VIAL (FIVE THOUSAND) SUBCUT SCH ×3 (05:55→21:54)
[2017-03-19 06:44] LABS: BUN/Creatinine Ratio 12.8 (8-20); Calcium 8.6 mg/dL (8.6-10.3); EGFR African American 34.6 (>60); EGFR Non-African American 26.9 (>60); Magnesium 2.5 mg/dL (1.9-2.7); Phosphorus 5.4 mg/dL (2.5-5.0)
[2017-03-19 06:50] LABS: Potassium 4.1 mmol/L (3.5-5.0)
[2017-03-19] MEDS: RiFAXimin* 550 MG TAB G TUBE SCH ×2 (07:34→21:55)
[2017-03-19] MEDS: Thiamine TAB* 100 MG TAB PO SCH (07:34)
[2017-03-19] MEDS: chlordiazePOXIDE CAP* 25 MG G TUBE SCH ×3 (07:34→21:53)
[2017-03-19] MEDS: Octreotide Acetate* 100 MCG/ML 1 ML VIAL SUBCUT SCH ×3 (07:35→21:54)
[2017-03-19] MEDS: Multivitamins ADULT w/MIN LIQ* 15 ML UDC G TUBE SCH (07:35)
[2017-03-19] MEDS: Lansoprazole susp Kit 3 MG/ML (30 MG = 10 ML) G TUBE SCH (07:35)
[2017-03-19] MEDS: Folic Acid TAB* 1 MG PO SCH (07:35)
[2017-03-19] MEDS: CMC:Midodrine (NF) 5 MG TAB PO SCH ×3 (07:35→21:53)
--- NOTE | 2017-03-19 09:56 | PN ---
Progress Note - Progress Note Note: CRITICAL CARE MEDICINE DATE: 03/19/17 TIME: 830 SUBJECTIVE: Patient seen and examined. PHYSICAL EXAM: Vital Signs: Reviewed. stable. aprv. 50% Neurologic: awakens, lowering prop. HEENT: icteric, mmm; ett in place. Cardiovascular: distant Respiratory: dec bs but stable on Phigh 25. Abdomen: obese, distention. ascites. Extremities: + edema; psoriasis Access: R picc LABS: Reviewed. IMAGING: Reviewed. MEDICATIONS: Reviewed. ASSESSMENT: 32 M with MSOF Acute hepatic encephalopathy, mod degree still Acute alcohol withdrawal/delirium tremens - better Acute respiratory failure sec to metabolic demand Acute alcoholic hepatitis - better Acute liver failure - better Lactic acidosis - resolved Coagulopathy - improved Acute renal failure with component of ATN Malnutrition mod degree PLAN: Neurologic: Dts better. lowering propofol still. librium. Hepatic encephalopathy persist and amm level f/u. lactulose and rifaximin. Cardiovascular: perfusing. Volume status overload interstially and look to add diuretics tomorrow, espeically if diurtetic phase post atn persents. midodrine and octreotide. Respiratory: APRV. Dec FiO2. spont breathing cotinued. Gastrointestinal: bili better. inr ok. perform para this weekend. Renal/Metabolic: slight inc uout and f/u. lytes ok. kruse Infectious Disease: no abx. Hematology: anemia ok. plts holding. hsq. Endocrine: on solumedrol continued. Musculoskeletal: oob if able. f/u skin needs. Psych/Social: palliative support and follow. updated Supportive and preventative care as ordered. SUP: ppi VTE prophylaxis: hsq Kruse catheter given critical illness, monitoring needs for accurate assessment of JAVIER and KDIGO criteria for critically ill patients and to avoid potential harms of urinary retention, skin breakdown/ulcers. Disposition: ICU; morbidity and mortality remain high but may start to turn the corner now Code Status: Full Critical Care Time: 35min FStephania Reeder DO
[2017-03-19] MEDS: Sodium Polystyrene ORAL.SOL* 15 GM/60 ML BTL G TUBE SCH ×2 (10:08→21:55)
[2017-03-20] MEDS: Propofol* 100 ML IV SCH ×8 (00:04→23:43)
[2017-03-20] MEDS: methylPREDNISolone SOD 40 MG* 1 ML VIAL IV SCH ×3 (03:34→21:10)
[2017-03-20] MEDS: Chlorhexidine MOUTHWASH 0.12%* 15 ML UDC TOPICAL SCH ×6 (03:34→23:25)
[2017-03-20 04:54] LABS: Add Diff/Slide Review? Slide Review Added; Comments Flag Yes; Hematocrit 40 % (42-52); Hemoglobin 13.1 g/dl (14.0-18.0); Mean Corpuscular HGB Conc 33 g/dl (31-36); Mean Corpuscular Hemoglobin 34 pg (27-31); Mean Corpuscular Volume 105 fL (80-94); Mean Platelet Volume 10 um3 (7.4-10.4); Red Blood Count 3.81 10^6/ul (4.0-5.4); Red Cell Distribution Width 16 % (10.5-15)
[2017-03-20 04:58] LABS: Albumin 2.8 g/dL (3.2-5.2); BUN/Creatinine Ratio 18.8 (8-20); Calcium 8.6 mg/dL (8.6-10.3); Direct Bilirubin 4.5 mg/dL (0.03-0.18); EGFR African American 37.4 (>60); EGFR Non-African American 29.1 (>60); Globulin 4.1 g/dL (2-4); Indirect Bilirubin 1.9 mg/dL (0.3-1.0); Magnesium 2.6 mg/dL (1.9-2.7); Phosphorus 5.5 mg/dL (2.5-5.0); Potassium 3.8 mmol/L (3.5-5.0); Total Bilirubin 6.4 mg/dL (0.2-1.0); Total Protein 6.9 g/dL (6.4-8.9)
[2017-03-20] MEDS: Heparin VIAL(*) 5000 UNITS/ML VIAL (FIVE THOUSAND) SUBCUT SCH ×3 (05:42→21:25)
[2017-03-20] MEDS: Lansoprazole susp Kit 3 MG/ML (30 MG = 10 ML) G TUBE SCH (08:48)
[2017-03-20] MEDS: Multivitamins ADULT w/MIN LIQ* 15 ML UDC G TUBE SCH (08:48)
[2017-03-20] MEDS: Octreotide Acetate* 100 MCG/ML 1 ML VIAL SUBCUT SCH (08:48)
[2017-03-20] MEDS: Thiamine TAB* 100 MG TAB PO SCH (08:49)
[2017-03-20] MEDS: Folic Acid TAB* 1 MG PO SCH (08:49)
[2017-03-20] MEDS: RiFAXimin* 550 MG TAB G TUBE SCH ×2 (08:49→21:26)
[2017-03-20] MEDS: CMC:Midodrine (NF) 5 MG TAB PO SCH ×3 (08:49→21:25)
[2017-03-20] MEDS: chlordiazePOXIDE CAP* 25 MG G TUBE SCH (08:49)
[2017-03-20] MEDS ORDERED: Furosemide IV* 10 MG/ML 10 ML VIAL (100 MG) IV ONE (09:33)
[2017-03-20] MEDS ORDERED: Dextrose 50% Syringe 50 ML* 25 GM/50 ML SYRINGE IV PUSH PRN (09:37)
[2017-03-20] MEDS: Potassium Chloride LIQUID* 20 MEQ PACKET G TUBE SCH ×2 (10:02→21:22)
--- NOTE | 2017-03-20 10:23 | PN ---
Progress Note - Progress Note Note: CRITICAL CARE MEDICINE DATE: 03/20/17 TIME: 915 SUBJECTIVE: Patient seen and examined. at bedside updated. PHYSICAL EXAM: Vital Signs: Reviewed. stable. aprv. 50% Neurologic: awakens, lowering prop again. HEENT: icteric; ett in place. Cardiovascular: distant Respiratory: dec bs but stable on Phigh 25. overbreathing. Abdomen: obese, distention. +ascites. Extremities: + edema; psoriasis stable Access: R picc LABS: Reviewed. IMAGING: Reviewed. MEDICATIONS: Reviewed. ASSESSMENT: 32 M with MSOF Acute hepatic encephalopathy, mod degree Acute alcohol withdrawal/delirium tremens - better Acute respiratory failure Pleural effusions Acute alcoholic hepatitis - improved Acute liver failure - stabilizing Coagulopathy - improved post vit k Acute renal failure with component of ATN - improving to non-oliguric Malnutrition mod degree PLAN: Neurologic: Dts controlled. lowering propofol still but still needs. dc librium today and utilize overlap with prop to avoid withdrawal. Hepatic encephalopathy persist and amm level f/u. lactulose and rifaximin. Cardiovascular: perfusing. start lasix gtt today and see if renal recovery can be promoted. keep midodrine but can dc octreotide. Respiratory: APRV. Dec FiO2 as able. spont breathing continued. Gastrointestinal: bili plateauing. inr ok. perform para prior to any liberation plans but hold on this currently as we try to promote renal diuresis first. Renal/Metabolic:inc uout and diuretics added. kruse Infectious Disease: no abx needs Hematology: anemia ok. plts holding. hsq. Endocrine: on solumedrol continued as he has responded; to prednisolone soon. Musculoskeletal: oob if able. f/u skin needs. Psych/Social: palliative support and follow. updated at length Supportive and preventative care as ordered. SUP: ppi VTE prophylaxis: hsq Kruse catheter given critical illness, monitoring needs for accurate assessment of JAVIER and KDIGO criteria for critically ill patients and to avoid potential harms of urinary retention, skin breakdown/ulcers. Disposition: ICU; morbidity and mortality remain high. Code Status: Full Critical Care Time: 35min Pedro Reeder DO
[2017-03-20] MEDS: Insulin LISPRO* 1 UNITS UNIT SUBCUT SCH ×2 (12:33→18:49)
[2017-03-20] MEDS: Insulin GLARGINE(*) 1 UNITS UNIT SUBCUT SCH (12:34)
[2017-03-21] MEDS: Insulin LISPRO* 1 UNITS UNIT SUBCUT SCH ×4 (01:42→18:44)
[2017-03-21] MEDS: Propofol* 100 ML IV SCH ×5 (03:18→22:39)
[2017-03-21] MEDS: methylPREDNISolone SOD 40 MG* 1 ML VIAL IV SCH (03:18)
[2017-03-21] MEDS: Chlorhexidine MOUTHWASH 0.12%* 15 ML UDC TOPICAL SCH ×6 (03:18→22:39)
[2017-03-21] MEDS: Heparin VIAL(*) 5000 UNITS/ML VIAL (FIVE THOUSAND) SUBCUT SCH ×3 (06:24→21:32)
[2017-03-21 07:15] LABS: Calcium 8.6 mg/dL (8.6-10.3); EGFR African American 41.7 (>60); EGFR Non-African American 32.4 (>60); Magnesium 2.5 mg/dL (1.9-2.7); Phosphorus 4.8 mg/dL (2.5-5.0); Potassium 3.8 mmol/L (3.5-5.0)
[2017-03-21] MEDS: Lansoprazole susp Kit 3 MG/ML (30 MG = 10 ML) G TUBE SCH (08:15)
[2017-03-21] MEDS: Thiamine TAB* 100 MG TAB PO SCH (08:27)
[2017-03-21] MEDS: RiFAXimin* 550 MG TAB G TUBE SCH ×2 (08:27→21:32)
[2017-03-21] MEDS: CMC:Midodrine (NF) 5 MG TAB PO SCH ×3 (08:27→21:32)
[2017-03-21] MEDS: Folic Acid TAB* 1 MG PO SCH (08:27)
[2017-03-21] MEDS: Multivitamins ADULT w/MIN LIQ* 15 ML UDC G TUBE SCH (08:27)
[2017-03-21] MEDS: Potassium Chloride LIQUID* 20 MEQ PACKET G TUBE SCH ×2 (08:27→21:32)
[2017-03-21] MEDS ORDERED: Chlorothiazide IV* 250 MG in NS 0.9% 50 ML* 50 ML IVPB ONE (09:59)
[2017-03-21] MEDS ORDERED: NS 0.9% 50 ML* 50 ML ONE (10:22)
[2017-03-21] MEDS: predniSONE TAB* 20 MG G TUBE SCH (10:26)
[2017-03-21] MEDS: acetaZOLAMIDE VIAL* 250 MG in NS 0.9% 50 ML* 50 ML IVPB SCH ×2 (10:26→21:31)
[2017-03-21] MEDS: Spironolactone TAB* 25 MG G TUBE SCH (10:26)
--- NOTE | 2017-03-21 10:43 | PN ---
Progress Note - Progress Note Note: CRITICAL CARE MEDICINE DATE: 03/21/17 TIME: 925 SUBJECTIVE: Patient seen and examined. at bedside. PHYSICAL EXAM: Vital Signs: Reviewed. stable. aprv. 50% Neurologic: awakens, low prop. HEENT: icteric; ett in place. Cardiovascular: distant Respiratory: dec bs. Phigh 25. Abdomen: obese, distention. +ascites same Extremities: + edema; psoriasis stable Access: R picc LABS: Reviewed. IMAGING: Reviewed. MEDICATIONS: Reviewed. ASSESSMENT: 32 M with MSOF Acute hepatic encephalopathy, mod degree Acute alcohol withdrawal/delirium tremens - better Acute respiratory failure Pleural effusions Acute alcoholic hepatitis - improved Acute liver failure - stabilizing Coagulopathy - improved post vit k Acute renal failure with component of ATN - improving to non-oliguric Malnutrition mod degree PLAN: Neurologic: Dts holding. lowering propofol and vacation today. off benzos other then prn. lactulose and rifaximin. Cardiovascular: perfusing. keep lasix gtt today and add renal cocktail. on midodrine. bp stable. Respiratory: APRV. Dec FiO2. spont breathing continued with aprv. Gastrointestinal: lfts holding. f/u wilfredo. para today for tx worth. Renal/Metabolic: inc uout with diuretics added, but still need a lot more to go. more time. kruse Infectious Disease: no abx thusfar Hematology: anemia ok. plts holding. hsq. Endocrine: prednisone day #03/31. Musculoskeletal: oob if able. f/u skin needs. Psych/Social: palliative support and follow. updated and expressed understanding. Supportive and preventative care as ordered. SUP: ppi VTE prophylaxis: hsq Kruse catheter given critical illness, monitoring needs for accurate assessment of JAVIER and KDIGO criteria for critically ill patients and to avoid potential harms of urinary retention, skin breakdown/ulcers. Disposition: ICU; morbidity and mortality remain high. Code Status: Full Critical Care Time: 35min Pedro Reeder DO
[2017-03-21] MEDS ORDERED: ALBUMIN HUMAN 25% IV SCH (11:00)
[2017-03-21] MEDS ORDERED: Albumin Human 25%* 50 ML BTL IV ONE (11:12)
[2017-03-21] MEDS: Insulin GLARGINE(*) 1 UNITS UNIT SUBCUT SCH (12:05)
[2017-03-21] MEDS: Albumin Human 25%* 50 ML BTL IV SCH (18:43)
[2017-03-22] MEDS: Insulin LISPRO* 1 UNITS UNIT SUBCUT SCH ×4 (00:26→18:37)
[2017-03-22] MEDS: Morphine INJ* 2 MG/ML 1 ML SYRINGE IV PRN (00:27)
[2017-03-22] MEDS: Propofol* 100 ML IV SCH ×4 (01:26→09:25)
[2017-03-22 02:42] LABS: Urine Bacteria Absent (Absent); Urine Bilirubin Negative (Negative); Urine Glucose Negative (Negative); Urine Nitrite Negative (Negative)
[2017-03-22] MEDS: Chlorhexidine MOUTHWASH 0.12%* 15 ML UDC TOPICAL SCH ×6 (04:28→23:02)
[2017-03-22] MEDS: Heparin VIAL(*) 5000 UNITS/ML VIAL (FIVE THOUSAND) SUBCUT SCH ×3 (05:38→20:55)
[2017-03-22 06:14] LABS: BUN/Creatinine Ratio 40.4 (8-20); EGFR African American 42.8 (>60); EGFR Non-African American 33.2 (>60); Magnesium 2.7 mg/dL (1.9-2.7); Phosphorus 4.8 mg/dL (2.5-5.0)
[2017-03-22 06:22] LABS: Hematocrit 39 % (42-52); Hemoglobin 12.7 g/dl (14.0-18.0); Mean Corpuscular HGB Conc 32 g/dl (31-36); Mean Corpuscular Hemoglobin 34 pg (27-31); Mean Corpuscular Volume 106 fL (80-94); Mean Platelet Volume 10 um3 (7.4-10.4); Red Blood Count 3.72 10^6/ul (4.0-5.4); Red Cell Distribution Width 16 % (10.5-15); White Blood Count 18.9 10^3/ul (3.5-10.8)
[2017-03-22 06:23] LABS: Add Diff/Slide Review? Manual Diff Added; Comments Flag Yes
[2017-03-22 06:42] LABS: Immature Granulocytes 3 % (0-9); Myelocytes % 2 % (0-1); Neutrophil % 79 % (38-83); Reactive Lymph % 2 % (0-6)
[2017-03-22 06:43] LABS: Add Path Review? YES; Macrocytosis 1+; Stomatocytes 2+
[2017-03-22 07:08] LABS: Potassium 3.5 mmol/L (3.5-5.0)
--- NOTE | 2017-03-22 07:57 | RAD ---
Indication: Fever. Single frontal view of the chest performed at 0110 hours was reviewed. Comparison is made with previous exam dated March 16, 2017. No mediastinal shift is noted. Lung miller demonstrate mild interstitial edema. Cardiomegaly is noted. ET tube and NG tube are in appropriate location. IMPRESSION: CARDIOMEGALY WITH INTERSTITIAL EDEMA CONSISTENT WITH A SUGGESTION. ET TUBE AT T3-T4.
[2017-03-22] MEDS: Folic Acid TAB* 1 MG PO SCH (08:00)
[2017-03-22] MEDS: Thiamine TAB* 100 MG TAB PO SCH (08:00)
[2017-03-22] MEDS: RiFAXimin* 550 MG TAB G TUBE SCH ×2 (08:00→20:55)
[2017-03-22] MEDS: Spironolactone TAB* 25 MG G TUBE SCH (08:00)
[2017-03-22] MEDS: predniSONE TAB* 20 MG G TUBE SCH (08:00)
[2017-03-22] MEDS: CMC:Midodrine (NF) 5 MG TAB PO SCH ×3 (08:00→20:55)
[2017-03-22] MEDS: Lansoprazole susp Kit 3 MG/ML (30 MG = 10 ML) G TUBE SCH (08:00)
[2017-03-22] MEDS: Multivitamins ADULT w/MIN LIQ* 15 ML UDC G TUBE SCH (08:00)
[2017-03-22] MEDS: Potassium Chloride LIQUID* 20 MEQ PACKET G TUBE SCH ×2 (08:01→20:55)
--- NOTE | 2017-03-22 09:03 | PN ---
Progress Note - Progress Note Note: Progress Note Critical Care 24 hour events/significant events: -overnight febrile 102.4, hyatt cultured -remains on propofol; was tachypneic this morning and prop increased to 40 -currently sedated, making urine on lasix infusion 15mg/hr; no pressors -family at bedside, updated current status Tele: NSR Vitals: Vital Signs Temp 99.7 F 03/22/17 07:37 Pulse 88 03/22/17 09:00 Resp 13 03/22/17 09:00 BP 148/76 03/22/17 09:00 Pulse Ox 96 03/22/17 09:00 Intake & Output 03/21/17 03/22/17 03/22/17 18:59 06:59 18:59 Intake Total 1671 806 Output Total 1800 2925 0 Balance -129 -2119 0 Weight 309 lb 1.409 oz Intake: IV Fluids 120 chlorothiazide 60 diamox 60 Medicated IV 334 CC - Propofol/Diprivan 210 furosemide 124 Tube Feeding 317 606 Tube Feeding Flush Amount 800 200 Albumin 100 Output: Cook 1500 2825 Liquid Stool 300 100 Tube Feeding Residual 0 0 0 Amount Wasted Other: Date of Last Bowel 03/21/17 Movement Estimated Stool Amount Large O2/Vent: APRV 50%, sat 100% Infusions: propofol 40; lasix 15mg/hr Medications: Current Medications Chlorhexidine Gluconate (Peridex Mouth Wash 0.12%*) 15 ml TOPICAL Q4H [facility] Last Admin: 03/22/17 04:28 Dose: 15 ml Dextrose (D50w Syringe 50 Ml*) 12.5 gm IV PUSH .FOR FS < 60 - SS PRN PRN Reason: FS < 60 Diphenhydramine HCl (Benadryl Po*) 50 mg PO Q6H PRN PRN Reason: ITCHING Last Admin: 03/15/17 22:20 Dose: 50 mg Fentanyl Citrate (Fentanyl*) 50 mcg IV SLOW PU Q2H PRN PRN Reason: PAIN Last Admin: 03/18/17 11:04 Dose: 50 mcg Folic Acid (Folvite Tab*) 1 mg PO DAILY [facility] Last Admin: 03/22/17 08:00 Dose: 1 mg Furosemide (Lasix Iv*) 10 mg IV 1130 ONE Stop: 03/22/17 11:31 Heparin Sodium (Porcine) (Heparin Flush Picc/Ml/Cvc(*)) 1 - 3 ml FLUSH 0600, 1800 [facility] PRN Reason: Protocol Last Admin: 03/22/17 05:36 Dose: 1 ml Heparin Sodium (Porcine) (Heparin Vial(*)) 5,000 units SUBCUT Q8HR [facility] Last Admin: 03/22/17 05:38 Dose: 5,000 units Hydralazine HCl (Apresoline Iv*) 5 mg IV SLOW PU Q6H PRN PRN Reason: BLOOD PRESSURE Norepinephrine Bitartrate (Levophed 16 Mcg/Ml Premix Bag*) 4,000 mcg in 250 mls @ 18.75 mls/hr IV .INITIAL RATE [facility] PRN Reason: 5 MCG/MIN Propofol (Diprivan*) 100 mls @ 0 mls/hr IV .(Initial Rate) [facility]; Per Protocol PRN Reason: Protocol Last Admin: 03/22/17 09:25 Dose: 33.8 mls/hr Furosemide 100 mg/ Sodium (Chloride) 100 mls @ 15 mls/hr IV Q7H [facility] PRN Reason: 15 MG/HR Last Admin: 03/22/17 10:22 Dose: 15 mls/hr Dexmedetomidine HCl 200 mcg/ (Sodium Chloride) 50 mls @ 3.5 mls/hr IVPB Q14H [facility] PRN Reason: 0.1 MCG/KG/HR Piperacillin Sod/Tazobactam (Sod 3.375 gm/ Sodium Chloride) 100 mls @ 200 mls/ hr IVPB ONCE ONE Stop: 03/22/17 12:29 Piperacillin Sod/Tazobactam (Sod 3.375 gm/ Sodium Chloride) 100 mls @ 25 mls/ hr IVPB Q8H [facility] Insulin Glargine (Lantus(*)) 10 units SUBCUT Q24H [facility] Last Admin: 03/21/17 12:05 Dose: 10 unit Insulin Human Lispro (Humalog*) 0 units SUBCUT FS Q6 ICU [facility] PRN Reason: Protocol Last Admin: 03/22/17 05:55 Dose: 1 units Lactulose (Lactulose*) 30 ml PO QID [facility] Last Admin: 03/22/17 08:01 Dose: 30 ml Lansoprazole (Lansoprazole Susp Kit) 30 mg G TUBE DAILY [facility] Last Admin: 03/22/17 08:00 Dose: 30 mg Lorazepam (Ativan Inj*) 2 mg IV PUSH Q2H PRN PRN Reason: AGITATION Midodrine (Midodrine (Nf)) 5 mg PO TID [facility] PRN Reason: Protocol Last Admin: 03/22/17 08:00 Dose: 5 mg Morphine Sulfate (Morphine Inj (Syringe)*) 2 mg IV Q3H PRN PRN Reason: PAIN - MILD Last Admin: 03/22/17 00:27 Dose: 2 mg Multivitamins (Theragran W/Minerals Liq*) 15 ml G TUBE DAILY [facility] Last Admin: 03/22/17 08:00 Dose: 15 ml Ondansetron HCl (Zofran Inj*) 4 mg IV Q6H PRN PRN Reason: NAUSEA Potassium Chloride (Klor-Con Liquid*) 20 meq G TUBE BID [facility] Last Admin: 03/22/17 08:01 Dose: 20 meq Prednisone (Deltasone Tab*) 40 mg G TUBE DAILY [facility] Last Admin: 03/22/17 08:00 Dose: 40 mg Rifaximin (Xifaxan*) 550 mg G TUBE BID [facility] Last Admin: 03/22/17 08:00 Dose: 550 mg Spironolactone (Aldactone Tab*) 50 mg G TUBE DAILY [facility] Last Admin: 03/22/17 08:00 Dose: 50 mg Thiamine HCl (Vitamin B-1 Tab*) 100 mg PO DAILY [facility] Last Admin: 03/22/17 08:00 Dose: 100 mg Physical Exam: General: intubated, sedated Head: normocephalic, atraumatic HEENT: no pallor, +icterus, moist mucous membranes Neck: soft, supple, no jvd CVS: normal rate, normal rhythm, no murmur Resp: bilateral air entry, no rhales, no wheeze, no rhonchi, no acc muscle use Abdomen: soft, nontender, nondistended, bowel sounds present Ext: pulses+, warm, 1+edema Skin: intact, no breakdown, no dryness Neuro: intubated, sedated Labs: Laboratory Results - last 24 hr 03/21/17 03/21/17 03/21/17 11:46 18:15 23:31 WBC RBC Hgb Hct MCV MCH MCHC RDW Plt Count MPV Immature Gran % (Auto) Absolute Neuts (auto) Absolute Lymphs (auto) Absolute Monos (auto) Absolute Eos (auto) Absolute Basos (auto) Absolute Nucleated RBC Neutrophils % Band Neutrophils % Lymphocytes % Reactive Lymphs % Monocytes % Myelocytes % Normal RBC Morphology Macrocytosis Stomatocytes INR (Anticoag Therapy) Sodium Potassium Chloride Carbon Dioxide Anion Gap BUN Creatinine Est GFR ( Amer) Est GFR (Non-Af Amer) BUN/Creatinine Ratio Glucose POC Glucose (mg/dL) 164 H 150 H 160 H Calcium Phosphorus Magnesium Ammonia Urine Color Urine Appearance Urine pH Ur Specific Moffit Urine Protein Urine Ketones Urine Blood Urine Nitrate Urine Bilirubin Urine Urobilinogen Ur Leukocyte Esterase Urine WBC (Auto) Urine RBC (Auto) Urine Bacteria Hyaline Casts Urine Glucose 03/22/17 03/22/17 03/22/17 01:29 05:35 05:35 WBC RBC Hgb Hct MCV MCH MCHC RDW Plt Count MPV Immature Gran % (Auto) Absolute Neuts (auto) Absolute Lymphs (auto) Absolute Monos (auto) Absolute Eos (auto) Absolute Basos (auto) Absolute Nucleated RBC Neutrophils % Band Neutrophils % Lymphocytes % Reactive Lymphs % Monocytes % Myelocytes % Normal RBC Morphology Macrocytosis Stomatocytes INR (Anticoag Therapy) Sodium 143 Potassium 3.5 Chloride 106 Carbon Dioxide 31 Anion Gap 6 BUN 92 H Creatinine 2.28 H Est GFR ( Amer) 42.8 Est GFR (Non-Af Amer) 33.2 BUN/Creatinine Ratio 40.4 H Glucose 159 H POC Glucose (mg/dL) Calcium 9.0 Phosphorus 4.8 Magnesium 2.7 Ammonia 190 H Urine Color Yellow Urine Appearance Clear Urine pH 5.0 Ur Specific Moffit 1.010 Urine Protein Negative Urine Ketones Negative Urine Blood 2+ H Urine Nitrate Negative Urine Bilirubin Negative Urine Urobilinogen Negative Ur Leukocyte Esterase Negative Urine WBC (Auto) Trace(0-5/hpf) Urine RBC (Auto) 3+(>10/hpf) H Urine Bacteria Absent Hyaline Casts Present H Urine Glucose Negative 03/22/17 03/22/17 03/22/17 05:35 05:35 05:51 WBC 18.9 H RBC 3.72 L Hgb 12.7 L Hct 39 L MCV 106 H MCH 34 H MCHC 32 RDW 16 H Plt Count 144 L MPV 10 Immature Gran % (Auto) 3 Absolute Neuts (auto) 15.3 H Absolute Lymphs (auto) 1.4 Absolute Monos (auto) 2.0 H Absolute Eos (auto) 0.2 Absolute Basos (auto) 0.1 Absolute Nucleated RBC 0.02 Neutrophils % 79 Band Neutrophils % 1 Lymphocytes % 10 L Reactive Lymphs % 2 Monocytes % 6 Myelocytes % 2 H Normal RBC Morphology Not Reportable Macrocytosis 1+ Stomatocytes 2+ INR (Anticoag Therapy) 1.24 H Sodium Potassium Chloride Carbon Dioxide Anion Gap BUN Creatinine Est GFR ( Amer) Est GFR (Non-Af Amer) BUN/Creatinine Ratio Glucose POC Glucose (mg/dL) 147 H Calcium Phosphorus Magnesium Ammonia Urine Color Urine Appearance Urine pH Ur Specific Moffit Urine Protein Urine Ketones Urine Blood Urine Nitrate Urine Bilirubin Urine Urobilinogen Ur Leukocyte Esterase Urine WBC (Auto) Urine RBC (Auto) Urine Bacteria Hyaline Casts Urine Glucose Imaging: cxr 03/22 - ett above ade; no clear infiltrate. small lung volumes. ?small left retrocardiac infiltrate? no effusion. Assessment: 32y M w/pmhx of alcohol abuse, depression, psoriasis; presented with Shortness of breath and acute alcohol induced hepatitis. He started developing symptoms of alcohol withdrawal/delirium tremens as well as JAVIER, transferred to ICU, intubated for acute DTs and metabolic demand. -Acute Respiratory failure -Acute Alcohol withdrawal/Delirium tremens -Acute alcohol induced hepatitis -Acute liver failure -JAVIER, oliguric; pre-renal vs hepato-renal syndrome -Generalized anasarca, volume overload -Hyperlactatemia, resolved -Coagulopathy, improved -Hyperbilirubinemia -Acute Hepatic Encephelopathy Plan: Neuro- agitation this morning. on propofol 40. will dec in setting of hepatic dysfunction. start low dose precedex. cont lactulose and rifaxamin. check ammonia tomorrow. reassess neuro status on precedex if able. No bdz on board at this time. CVS- hemodyn stable, on midodrine. no pressors. ongoing large diuresis, good urine output on lasix infusion, cont 15mg/hr today. likely to dec tomorrow if still neg balance. Replete K. No arrhythmias noted. On aldactone for hepatorenal ? Resp- remains intubated, unable to extubate/wean unless improved mental status. Maintain APRV, sat 100%. obtain ABG to assess baseline vent status now. CXR reviewed, ?infiltrate. repeat tomorrow. no secretions from ETT. ID- febrile 102.4, WBC elevated 18k. Blood cx sent. send sputum cx. urinalysis neg. No hypotension. Unclear source. Started Zosyn 3.375gm q8h (day#1). GI- check LFTs today. Noted hyperbili, but LFTs dec? cont lactulose and rifaxamin for encephelopathy/hyperammonemia. Change prednisone to prednisolone 40mg po daily (active metabolite) (day 04/30). Tolerating tube feeds. Mild loose stool only. Last coag panel normalized, after Vit K admin. Noted some ascites but more anasarca, held on abd paracentesis. Monitor for any sepsis, may need tap. Based on severity of acute liver dysfunction he has a high mortality. High risk of GI bleed and sepsis in this state. Renal- Cr seems to have plateued. BUN still rising. On lasix and making great urine. Replete K. No acidosis. Cook in place. Is this just ATN or this part of hepatrenal, seems fluid loading him didnt quite correct the JAVIER. Repeat Albumin 25% today while on diuretics. On aldactone daily. Heme- hg stable. platelet count stable. Endo- insulin protocol, target <180 Musculsk- none Wounds- pressure ulcer prophylaxis Nutrition- NGT feeds ongoing, tolerating. DVT prophylaxis: heparin sq GI prophylaxis: PPI Central Line: left PICC Arterial Line: none Cook Cathetor: yes Disposition: ICU for respiratory failure, acute liver failure, JAVIER Code Status: full code Total Critical Care time is 40 minutes, excluding procedures/teaching Valerio Choudhary MD [employer] Mortising Machine Operator (Electronically Signed)
[2017-03-22] MEDS ORDERED: Furosemide IV* 10 MG/ML 2 ML VIAL (20 MG) IV ONE (11:30)
[2017-03-22] MEDS: Dexmedetomidine* 200 MCG in NS 0.9% 50 ML* 48 ML IVPB SCH ×4 (11:35→18:22)
[2017-03-22] MEDS ORDERED: Albumin Human 25%* 100 ML in PREMIX* 0 ML IV ONE (12:00)
[2017-03-22] MEDS ORDERED: ZOSYN 3.375 GM x ONE DOSE over 30 miuntes IVPB ×2 (12:00)
[2017-03-22 12:13] LABS: Albumin 3.3 g/dL (3.2-5.2); Globulin 3.9 g/dL (2-4); Total Bilirubin 5.9 mg/dL (0.2-1.0); Total Protein 7.2 g/dL (6.4-8.9)
[2017-03-22 12:19] LABS: Direct Bilirubin 3.6 mg/dL (0.03-0.18); Indirect Bilirubin 2.3 mg/dL (0.3-1.0)
[2017-03-22] MEDS ORDERED: PREMIX* 0 ML ONE (12:45)
[2017-03-22] MEDS: Insulin GLARGINE(*) 1 UNITS UNIT SUBCUT SCH (12:49)
[2017-03-22] MEDS ORDERED: ZOSYN 3.375 GM Q8H per EXTENDED INFUSION IVPB SCH ×2 (16:00)
[2017-03-23] MEDS: Insulin LISPRO* 1 UNITS UNIT SUBCUT SCH ×4 (00:59→18:37)
[2017-03-23] MEDS: Chlorhexidine MOUTHWASH 0.12%* 15 ML UDC TOPICAL SCH ×6 (03:00→21:35)
[2017-03-23] MEDS: Heparin VIAL(*) 5000 UNITS/ML VIAL (FIVE THOUSAND) SUBCUT SCH ×3 (05:56→21:35)
[2017-03-23 06:22] LABS: Hematocrit 39 % (42-52); Hemoglobin 12.8 g/dl (14.0-18.0); Mean Corpuscular HGB Conc 33 g/dl (31-36); Mean Corpuscular Hemoglobin 35 pg (27-31); Mean Corpuscular Volume 105 fL (80-94); Mean Platelet Volume 10 um3 (7.4-10.4); Red Cell Distribution Width 15 % (10.5-15); White Blood Count 16.5 10^3/ul (3.5-10.8)
[2017-03-23 06:46] LABS: Albumin 3.1 g/dL (3.2-5.2); BUN/Creatinine Ratio 48.7 (8-20); Calcium 9.3 mg/dL (8.6-10.3); EGFR African American 43.2 (>60); EGFR Non-African American 33.6 (>60); Globulin 3.5 g/dL (2-4); Potassium 3.3 mmol/L (3.5-5.0); Total Bilirubin 5.7 mg/dL (0.2-1.0); Total Protein 6.6 g/dL (6.4-8.9)
[2017-03-23] MEDS: Lansoprazole susp Kit 3 MG/ML (30 MG = 10 ML) G TUBE SCH (08:30)
[2017-03-23] MEDS: CMC:Midodrine (NF) 5 MG TAB PO SCH ×3 (09:07→21:35)
[2017-03-23] MEDS: predniSONE TAB* 20 MG G TUBE SCH (09:07)
[2017-03-23] MEDS: RiFAXimin* 550 MG TAB G TUBE SCH ×2 (09:08→21:35)
[2017-03-23] MEDS: Folic Acid TAB* 1 MG PO SCH (09:08)
[2017-03-23] MEDS: Thiamine TAB* 100 MG TAB PO SCH (09:08)
[2017-03-23] MEDS: Potassium Chloride LIQUID* 20 MEQ PACKET G TUBE SCH ×2 (09:09→21:35)
[2017-03-23] MEDS: Multivitamins ADULT w/MIN LIQ* 15 ML UDC G TUBE SCH (09:09)
--- NOTE | 2017-03-23 09:42 | PN ---
Progress Note - Progress Note Note: Progress Note Critical Care 24 hour events/significant events: -febrile 102.2, ?tongue bite with some blood from mouth noted. mild frankel secretions from ett+ -switched from propofol to precedex infusion, did wake slightly and more tachypneic. -continued diuresis with lasix infusion, continued loose stools while on lactulose -no pressors, hemodyn stable. -no family at bedside this morning, updated them yesterday at bedside. Tele: NSR Vitals: Vital Signs Temp 100.4 F 03/23/17 07:58 Pulse 73 03/23/17 07:00 Resp 18 03/23/17 07:00 BP 126/62 03/23/17 07:00 Pulse Ox 95 03/23/17 07:00 Intake & Output 03/22/17 03/23/17 03/23/17 18:59 06:59 18:59 Intake Total 1405 1762 Output Total 600 4200 1350 Balance 805 -2438 -1350 Weight 307 lb 5.19 oz Intake: Medicated IV 685 403 CC - Dexmedetomidine/ 56 292 Precedex CC - Propofol/Diprivan 400 furosemide 229 111 Tube Feeding 320 934 Tube Feeding Flush Amount 200 425 NG Tube Irrigate Amount 200 Output: Cook 600 2800 1350 Liquid Stool 1400 Tube Feeding Residual 0 Amount Wasted O2/Vent: APRV 50%, sat 100% - now on PS trial this morning, 15/, 50%, sat currently 100%, rr 14, tv 900 Infusions: precedex 0.4; lasix 15mg/hr Medications: Chlorhexidine Gluconate (Peridex Mouth Wash 0.12%*) 15 ml TOPICAL Q4H [facility] Last Admin: 03/23/17 07:02 Dose: 15 ml Dextrose (D50w Syringe 50 Ml*) 12.5 gm IV PUSH .FOR FS < 60 - SS PRN PRN Reason: FS < 60 Diphenhydramine HCl (Benadryl Po*) 50 mg PO Q6H PRN PRN Reason: ITCHING Last Admin: 03/15/17 22:20 Dose: 50 mg Fentanyl Citrate (Fentanyl*) 50 mcg IV SLOW PU Q2H PRN PRN Reason: PAIN Last Admin: 03/18/17 11:04 Dose: 50 mcg Folic Acid (Folvite Tab*) 1 mg PO DAILY [facility] Last Admin: 03/22/17 08:00 Dose: 1 mg Heparin Sodium (Porcine) (Heparin Flush Picc/Ml/Cvc(*)) 1 - 3 ml FLUSH 0600, 1800 [facility] PRN Reason: Protocol Last Admin: 03/23/17 05:56 Dose: 1 ml Heparin Sodium (Porcine) (Heparin Vial(*)) 5,000 units SUBCUT Q8HR [facility] Last Admin: 03/23/17 05:56 Dose: 5,000 units Hydralazine HCl (Apresoline Iv*) 5 mg IV SLOW PU Q6H PRN PRN Reason: BLOOD PRESSURE Norepinephrine Bitartrate (Levophed 16 Mcg/Ml Premix Bag*) 4,000 mcg in 250 mls @ 18.75 mls/hr IV .INITIAL RATE [facility] PRN Reason: 5 MCG/MIN Propofol (Diprivan*) 100 mls @ 0 mls/hr IV .(Initial Rate) [facility]; Per Protocol PRN Reason: Protocol Last Admin: 03/22/17 09:25 Dose: 33.8 mls/hr Dexmedetomidine HCl 400 mcg/ (Sodium Chloride) 100 mls @ 3.5 mls/hr IVPB Q2H [facility] PRN Reason: 0.1 MCG/KG/HR Stop: 03/24/17 06:59 Last Admin: 03/23/17 07:03 Dose: 3.5 mls/hr Albumin Human 100 ml/ IV (Solution) 100 mls @ 0 mls/hr IV Q12HR [facility]; As Directed PRN Reason: Protocol Dexmedetomidine HCl 400 mcg/ (Sodium Chloride) 100 mls @ 3.5 mls/hr IVPB Q24H [facility] PRN Reason: 0.1 MCG/KG/HR Furosemide 100 mg/ Sodium (Chloride) 100 mls @ 10 mls/hr IV Q7H [facility] PRN Reason: 10 MG/HR Potassium Chloride (Potassium Chloride 20 Meq/100 Ml Ivpremix*) 20 meq in 100 mls @ 50 mls/hr IV Q2H [facility] Stop: 03/23/17 13:59 Insulin Glargine (Lantus(*)) 10 units SUBCUT Q24H [facility] Last Admin: 03/22/17 12:49 Dose: 10 unit Insulin Human Lispro (Humalog*) 0 units SUBCUT FS Q6 ICU [facility] PRN Reason: Protocol Last Admin: 03/23/17 07:03 Dose: 1 units Lactulose (Lactulose*) 30 ml PO Q12HR [facility] Lansoprazole (Lansoprazole Susp Kit) 30 mg G TUBE DAILY [facility] Last Admin: 03/22/17 08:00 Dose: 30 mg Lorazepam (Ativan Inj*) 2 mg IV PUSH Q2H PRN PRN Reason: AGITATION Last Admin: 03/23/17 03:32 Dose: 2 mg Midodrine (Midodrine (Nf)) 5 mg PO TID [facility] PRN Reason: Protocol Last Admin: 03/22/17 20:55 Dose: 5 mg Multivitamins (Theragran W/Minerals Liq*) 15 ml G TUBE DAILY [facility] Last Admin: 03/22/17 08:00 Dose: 15 ml Ondansetron HCl (Zofran Inj*) 4 mg IV Q6H PRN PRN Reason: NAUSEA Potassium Chloride (Klor-Con Liquid*) 20 meq G TUBE BID [facility] Last Admin: 03/22/17 20:55 Dose: 20 meq Prednisone (Deltasone Tab*) 40 mg G TUBE DAILY [facility] Last Admin: 03/22/17 08:00 Dose: 40 mg Rifaximin (Xifaxan*) 550 mg G TUBE BID [facility] Last Admin: 03/22/17 20:55 Dose: 550 mg Spironolactone (Aldactone Tab*) 50 mg G TUBE DAILY [facility] Last Admin: 03/22/17 08:00 Dose: 50 mg Thiamine HCl (Vitamin B-1 Tab*) 100 mg PO DAILY [facility] Last Admin: 03/22/17 08:00 Dose: 100 mg Physical Exam: General: intubated, sedated Head: normocephalic, atraumatic HEENT: no pallor, +icterus, moist mucous membranes Neck: soft, supple, no jvd CVS: normal rate, normal rhythm, no murmur Resp: bilateral air entry, no rhales, no wheeze, no rhonchi, no acc muscle use Abdomen: soft, nontender, nondistended, bowel sounds present Ext: pulses+, warm, 1+edema UE and LE Skin: intact, no breakdown, no dryness Neuro: intubated, sedated Labs: Laboratory Results - last 24 hr 03/22/17 03/22/17 03/22/17 05:35 05:35 12:36 WBC RBC Hgb Hct MCV MCH MCHC RDW Plt Count MPV Hem Pathologist Commnt INR (Anticoag Therapy) APTT Sodium Potassium Chloride Carbon Dioxide Anion Gap BUN Creatinine Est GFR ( Amer) Est GFR (Non-Af Amer) BUN/Creatinine Ratio Glucose POC Glucose (mg/dL) 168 H Calcium Total Bilirubin 5.90 H Direct Bilirubin 3.60 H Indirect Bilirubin 2.3 H AST 204 H ALT 118 H Alkaline Phosphatase 116 H Ammonia Total Protein 7.2 Albumin 3.3 Globulin 3.9 Albumin/Globulin Ratio 0.8 L 03/22/17 03/23/17 03/23/17 18:34 00:52 06:10 WBC RBC Hgb Hct MCV MCH MCHC RDW Plt Count MPV Hem Pathologist Commnt INR (Anticoag Therapy) 1.30 H APTT 37.9 H Sodium Potassium Chloride Carbon Dioxide Anion Gap BUN Creatinine Est GFR ( Amer) Est GFR (Non-Af Amer) BUN/Creatinine Ratio Glucose POC Glucose (mg/dL) 128 H 138 H Calcium Total Bilirubin Direct Bilirubin Indirect Bilirubin AST ALT Alkaline Phosphatase Ammonia Total Protein Albumin Globulin Albumin/Globulin Ratio 03/23/17 03/23/17 03/23/17 06:10 06:10 06:10 WBC 16.5 H RBC 3.70 L Hgb 12.8 L Hct 39 L MCV 105 H MCH 35 H MCHC 33 RDW 15 Plt Count 134 L MPV 10 Hem Pathologist Commnt INR (Anticoag Therapy) APTT Sodium 150 H Potassium 3.3 L Chloride 108 Carbon Dioxide 33 H Anion Gap 9 BUN 110 H Creatinine 2.26 H Est GFR ( Amer) 43.2 Est GFR (Non-Af Amer) 33.6 BUN/Creatinine Ratio 48.7 H Glucose 144 H POC Glucose (mg/dL) Calcium 9.3 Total Bilirubin 5.70 H Direct Bilirubin Indirect Bilirubin AST 175 H ALT 113 H Alkaline Phosphatase 102 Ammonia 183 H Total Protein 6.6 Albumin 3.1 L Globulin 3.5 Albumin/Globulin Ratio 0.9 L Imaging: cxr 03/22 - ett above ade; no clear infiltrate. small lung volumes. ?small left retrocardiac infiltrate? no effusion. cxr 03/23 - pending Assessment: 32y M w/pmhx of alcohol abuse, depression, psoriasis; presented with Shortness of breath and acute alcohol induced hepatitis. He started developing symptoms of alcohol withdrawal/delirium tremens as well as JAVIER, transferred to ICU, intubated for acute DTs and metabolic demand. -Acute Respiratory failure, unspecified; 2/2 encephelopathy/withdrawal -Acute Alcohol withdrawal/Delirium tremens -Acute alcohol induced hepatitis -Acute liver failure -JAVIER, oliguric; pre-renal vs hepato-renal syndrome -Generalized anasarca, volume overload -Hyperlactatemia, resolved -Coagulopathy, improved -Hyperbilirubinemia -Acute Hepatic Encephelopathy Plan: Neuro- switched on precedex, off propofol, may take time to clear given body habitus and poor liver function. Ammonia improved. awaiting to see when he wakes up more and assess neuro status. combination of hepatic encephelopathy, propofol, ?uremia, post alcohol withdrawal, low grade sepsis may all be contributing factors. will obtain EEG. cont lactulose and rifaxamin. No bdz needed. minimize sedatives. CVS- hemodyn stable, on midodrine. no pressors. ongoing large diuresis, good urine output on lasix infusion, dec to 10mg/hr today. hypernatremia noted. Replete K. No arrhythmias noted. d/c aldactone for renal failure Resp- remains intubated, switched to CPAP this morning, tolerating well. CXR today pending. mild frankel colored secretions noted, cont zosyn iv (day#2) ID- febrile 102.2, WBC elevated 16k. Blood cx neg x1 day. sputum smear mixed amanda, pending culture. Cont Zosyn IV (day#2) GI- LFTs slow decline, bili dec. cont lactulose and rifaxamin for encephelopathy /hyperammonemia. Prednisolone 40mg po daily (active metabolite) (day 05/31). Tolerating tube feeds. Loose stools+ while on lactulose, dec to q12h. PTT 30s and INR 1.3 (on heparin prophylaxis). On abx for sepsis, pneumonia suspected. Based on severity of acute liver dysfunction he has a high risk of mortality. High risk of GI bleed and sepsis in this state. Protonix PPI. Renal- Cr seems to have plateued. BUN still rising. Neg balance, but hypernatremic now. Dec Lasix to 10mg/hr. Replete K. No acidosis. Cook in place. ATN vs hepatorenal, seems fluid loading him didnt quite correct the JAVIER. Repeat Albumin 25% BID while on diuretics. d/c aldactone. Obtain nephrology consult today. Heme- hg stable. platelet count stable. Endo- insulin protocol, target <180 Musculsk- none Wounds- pressure ulcer prophylaxis Nutrition- NGT feeds ongoing, tolerating. DVT prophylaxis: heparin sq GI prophylaxis: PPI Central Line: left PICC Arterial Line: none Cook Cathetor: yes Disposition: ICU for respiratory failure, acute liver failure, JAVIER/hepatorenal Code Status: full code Total Critical Care time is 40 minutes, excluding procedures/teaching Valerio Choudhary MD Academic Services Coordinator (Electronically Signed)
[2017-03-23] MEDS: Spironolactone TAB* 25 MG G TUBE SCH (10:02)
--- NOTE | 2017-03-23 10:34 | RAD ---
INDICATION: Infiltrate. COMPARISON: Comparison is made with a prior chest x-ray study from March 22, 2017. TECHNIQUE: A portable view of the chest was obtained. FINDINGS: The patient is status post intubation. The endotracheal tube tip projects just below the level of the clavicular heads and is located approximately 3.5 cm proximal to the ade. There is a nasogastric tube which enters normal course. There is a PICC present on the right side. The catheter tip projects over the right atrium. The heart is within normal limits in size. The lungs are underinflated. There is a small infiltrate at the left lung base. No pleural effusion is seen. IMPRESSION: SMALL LEFT BASILAR, UNCHANGED.
[2017-03-23] MEDS: Albumin Human 25%* 100 ML in PREMIX* 0 ML IV SCH ×2 (10:36→22:07)
[2017-03-23] MEDS: KCL 20 MEQ/100 ML IVPREMIX* 20 MEQ/100 ML BAG IV SCH ×2 (11:28→12:59)
[2017-03-23] MEDS: Insulin GLARGINE(*) 1 UNITS UNIT SUBCUT SCH (13:04)
[2017-03-23 18:17] LABS: Renal Sodium Excretion 0.3 %
[2017-03-24] MEDS: Insulin LISPRO* 1 UNITS UNIT SUBCUT SCH ×4 (00:44→18:05)
[2017-03-24] MEDS: Chlorhexidine MOUTHWASH 0.12%* 15 ML UDC TOPICAL SCH ×6 (03:04→23:12)
--- NOTE | 2017-03-24 03:10 | CONS ---
CC: Kathy Tovar MD* NEPHROLOGY CONSULTATION: DATE OF CONSULT/DICTATION: 03/23/17 HISTORY OF PRESENT ILLNESS: Mr. Blankenship is a 32-year-old gentleman with long history of alcohol abuse. He had presented with shortness of breath. He had developed a significant amount of ascites and edema. He was found to have an elevated alcohol level and lactic acidosis. There was a question of spontaneous bacterial peritonitis. He eventually had a drainage of ascites of 2 L. He was noted to have a rising serum creatinine in the face of diuresis precipitating this consultation. He was intubated and ventilated and unable to give history and as a result, the history is taken from the record. PAST MEDICAL HISTORY: His previous medical history is significant for alcohol abuse and depression. He has a history of psoriasis. MEDICATIONS: His medications have included: 1. Folic acid. 2. Levophed. 3. Ativan. 4. Lactulose. 5. Morphine. 6. Multivitamins. 7. Zofran. 8. Propofol. 9. Rifaximin. 10. Thiamine. 11. Ziprasidone. 12. Chlordiazepoxide. 13. Benadryl. 14. Fentanyl. 15. Methylprednisolone. REVIEW OF SYSTEMS: He is unable to give a review of systems. PHYSICAL EXAM: He is an edematous white gentleman, intubated, and ventilated. His blood pressure is 130/67 with a pulse of 68, respirations are 22. Surprisingly, he is anicteric. I expected him to have scleral icterus. He has ecchymosis. His mucous membranes are moist. His chest is surprisingly clear. The heart revealed a regular rhythm without murmurs. The abdomen is soft. There is a fluid wave. I could not feel his liver margin. He had 2+ edema diffusely. DIAGNOSTIC STUDIES/LAB DATA: A review of his laboratory values reveals a white count of 16.5, hemoglobin of 12.8, platelet count of 134,000. His INR is 1.3. Sodium of 150, potassium 3.3, total CO2 33, chloride 108, creatinine 2.26 down from a maximum of 2.74 on the 16th. His baseline creatinine was 0.62. BUN is 110 and has been progressively rising, on admission, it was 2. Glucose of 154. Total bilirubin 5.7. Ammonia 183. Urinary sodium is 18 mmol/L with a fractional excretion of sodium of 0.30. IMPRESSION: 1. Acute renal failure. 2. Cirrhosis with ascites with liver failure. 3. Alcohol abuse. 4. History of lactic acidosis. He does not meet diagnostic criteria for hepatorenal syndrome, although I think the actual physiology is essentially the same. He has not been anuric. His most recent urinary volume was 900 cc. His urinary sodium was not less than 10. I think he is significantly prerenal. There has been an attempt to diuresis him because of his fluid overload and I believe the marked elevation in his urea in the face of his liver disease is significant for prerenal state as is his fractional excretion of sodium. At the present time, I would not further diuresis him. He does require free water load because of his hypernatremia. Of course, the lactulose that he is being administered will increase his free water excretion. All in all, I would consider his prognosis to be grim. I would consider continuing midodrine as well as octreotide. I have discussed the case with Dr. Choudhary. [id number]/[facility] #: [id number] [facility] CENTERBetsy
[2017-03-24] MEDS: Heparin VIAL(*) 5000 UNITS/ML VIAL (FIVE THOUSAND) SUBCUT SCH ×3 (05:34→21:21)
[2017-03-24 06:18] LABS: Hematocrit 38 % (42-52); Hemoglobin 12.3 g/dl (14.0-18.0); Mean Corpuscular HGB Conc 33 g/dl (31-36); Mean Corpuscular Hemoglobin 34 pg (27-31); Mean Corpuscular Volume 105 fL (80-94); Mean Platelet Volume 11 um3 (7.4-10.4); Red Blood Count 3.58 10^6/ul (4.0-5.4); Red Cell Distribution Width 15 % (10.5-15); White Blood Count 16.5 10^3/ul (3.5-10.8)
[2017-03-24 06:42] LABS: Albumin 3.3 g/dL (3.2-5.2); BUN/Creatinine Ratio 54.2 (8-20); Calcium 9.9 mg/dL (8.6-10.3); EGFR African American 48.9 (>60); Globulin 3.4 g/dL (2-4); Potassium 3.5 mmol/L (3.5-5.0); Total Bilirubin 5.1 mg/dL (0.2-1.0); Total Protein 6.7 g/dL (6.4-8.9)
[2017-03-24] MEDS ORDERED: Furosemide IV* 10 MG/ML 2 ML VIAL (20 MG) IV SLOW PU ONE (09:17)
[2017-03-24] MEDS ORDERED: Furosemide IV* 10 MG/ML VIAL (40 MG) ONE (09:25)
--- NOTE | 2017-03-24 09:28 | PN ---
Progress Note - Progress Note Note: Progress Note Critical Care 24 hour events/significant events: -less febrile, remains on vent; no other acute events noted overnight. -remains on low dose precedex, more movement and trying to open eyes. has been off propofol for 48 hours almost. -off lasix infusion; neg balance. Tele: NSR Vitals: Vital Signs Temp 99.5 F 03/24/17 07:40 Pulse 74 03/24/17 09:00 Resp 18 03/24/17 09:00 BP 132/70 03/24/17 09:00 Pulse Ox 95 03/24/17 09:00 Intake & Output 03/23/17 03/24/17 03/24/17 18:59 06:59 18:59 Intake Total 847 842 Output Total 3100 1975 0 Balance -2253 -1133 0 Weight 293 lb 14.019 oz Intake: IV Fluids 136 ns 136 Medicated IV 527 273 CC - Dexmedetomidine/ 80 173 Precedex albumin 100 furosemide 80 kvo ptassium 367 Tube Feeding 320 233 Tube Feeding Flush Amount 200 Output: Coko 2250 1975 Liquid Stool 850 Tube Feeding Residual 0 0 Amount Wasted O2/Vent: PS 15/8, 60%, sat currently 100%, rr 14, tv 700 Infusions: precedex 0.4; lasix d/c'ed Medications: Chlorhexidine Gluconate (Peridex Mouth Wash 0.12%*) 15 ml TOPICAL Q4H [facility] Last Admin: 03/24/17 05:57 Dose: 15 ml Dextrose (D50w Syringe 50 Ml*) 12.5 gm IV PUSH .FOR FS < 60 - SS PRN PRN Reason: FS < 60 Diphenhydramine HCl (Benadryl Po*) 50 mg PO Q6H PRN PRN Reason: ITCHING Last Admin: 03/15/17 22:20 Dose: 50 mg Folic Acid (Folvite Tab*) 1 mg PO DAILY [facility] Last Admin: 03/24/17 09:37 Dose: 1 mg Heparin Sodium (Porcine) (Heparin Flush Picc/Ml/Cvc(*)) 1 - 3 ml FLUSH 0600, 1800 [facility] PRN Reason: Protocol Last Admin: 03/24/17 05:34 Dose: 1 ml Heparin Sodium (Porcine) (Heparin Vial(*)) 5,000 units SUBCUT Q8HR [facility] Last Admin: 03/24/17 05:34 Dose: 5,000 units Hydralazine HCl (Apresoline Iv*) 5 mg IV SLOW PU Q6H PRN PRN Reason: BLOOD PRESSURE Propofol (Diprivan*) 100 mls @ 0 mls/hr IV .(Initial Rate) AYE; Per Protocol PRN Reason: Protocol Last Admin: 03/22/17 09:25 Dose: 33.8 mls/hr Albumin Human 100 ml/ IV (Solution) 100 mls @ 0 mls/hr IV Q12HR AYE; As Directed PRN Reason: Protocol Last Admin: 03/24/17 09:37 Dose: 100 mls/hr Dexmedetomidine HCl 400 mcg/ (Sodium Chloride) 100 mls @ 14.3 mls/hr IVPB Q7H [facility]YE PRN Reason: As Directed Last Admin: 03/24/17 06:26 Dose: 14.3 mls/hr Potassium Chloride (Potassium Chloride 20 Meq/100 Ml Ivpremix*) 20 meq in 100 mls @ 50 mls/hr IV Q2H [facility]YE Stop: 03/24/17 13:59 Sodium Chloride (Ns 0.45% 1000 Ml Bag*) 1,000 mls @ 50 mls/hr IV PER RATE AYE Stop: 03/25/17 09:59 Insulin Glargine (Lantus(*)) 10 units SUBCUT Q24H [facility]YE Last Admin: 03/23/17 13:04 Dose: 10 unit Insulin Human Lispro (Humalog*) 0 units SUBCUT FS Q6 ICU [facility] PRN Reason: Protocol Last Admin: 03/24/17 05:35 Dose: 1 units Lactulose (Lactulose*) 30 ml PO Q12HR [facility]YE Last Admin: 03/24/17 09:38 Dose: 30 ml Lansoprazole (Lansoprazole Susp Kit) 30 mg G TUBE BID [facility] Midodrine (Midodrine (Nf)) 5 mg PO TID AYE PRN Reason: Protocol Last Admin: 03/24/17 09:37 Dose: 5 mg Multivitamins (Theragran W/Minerals Liq*) 15 ml G TUBE DAILY [facility] Last Admin: 03/24/17 09:38 Dose: 15 ml Ondansetron HCl (Zofran Inj*) 4 mg IV Q6H PRN PRN Reason: NAUSEA Potassium Chloride (Klor-Con Liquid*) 20 meq G TUBE BID [facility] Last Admin: 03/24/17 09:38 Dose: 20 meq Prednisolone Sodium Phosphate (Prednisolone Liq 3 Mg/Ml 5 Ml Udc*) 40 mg PO DAILY [facility] Last Admin: 03/24/17 09:38 Dose: 40 mg Rifaximin (Xifaxan*) 550 mg G TUBE BID [facility] Last Admin: 03/24/17 09:39 Dose: 550 mg Thiamine HCl (Vitamin B-1 Tab*) 100 mg PO DAILY [facility] Last Admin: 03/24/17 09:39 Dose: 100 mg Physical Exam: General: intubated, sedated Head: normocephalic, atraumatic HEENT: no pallor, +icterus, moist mucous membranes Neck: soft, supple, no jvd CVS: normal rate, normal rhythm, no murmur Resp: bilateral air entry, no rhales, no wheeze, no rhonchi, no acc muscle use Abdomen: soft, nontender, nondistended, bowel sounds present Ext: pulses+, warm, 1+edema UE and LE Skin: intact, no breakdown, no dryness Neuro: intubated, sedated; moving more with stimuli, attempting to open eyes but not totally yet Labs: Laboratory Results - last 24 hr 03/23/17 03/23/17 03/23/17 12:53 17:45 18:08 WBC RBC Hgb Hct MCV MCH MCHC RDW Plt Count MPV Sodium 150 H Potassium Chloride Carbon Dioxide Anion Gap BUN Creatinine 2.26 H Est GFR ( Amer) Est GFR (Non-Af Amer) BUN/Creatinine Ratio Glucose POC Glucose (mg/dL) 169 H 154 H Calcium Total Bilirubin AST ALT Alkaline Phosphatase Total Protein Albumin Globulin Albumin/Globulin Ratio Ur Random Creatinine 90.22 Ur Random Sodium 18 Renal Sodium Excretion 0.30 03/24/17 03/24/17 03/24/17 00:39 05:20 05:20 WBC 16.5 H RBC 3.58 L Hgb 12.3 L Hct 38 L MCV 105 H MCH 34 H MCHC 33 RDW 15 Plt Count 125 L MPV 11 H Sodium 153 H Potassium 3.5 Chloride 113 H Carbon Dioxide 32 Anion Gap 8 BUN 110 H Creatinine 2.03 H Est GFR ( Amer) 48.9 Est GFR (Non-Af Amer) 38.0 BUN/Creatinine Ratio 54.2 H Glucose 141 H POC Glucose (mg/dL) 127 H Calcium 9.9 Total Bilirubin 5.10 H AST 157 H ALT 104 H Alkaline Phosphatase 85 Total Protein 6.7 Albumin 3.3 Globulin 3.4 Albumin/Globulin Ratio 1.0 Ur Random Creatinine Ur Random Sodium Renal Sodium Excretion 03/24/17 05:28 WBC RBC Hgb Hct MCV MCH MCHC RDW Plt Count MPV Sodium Potassium Chloride Carbon Dioxide Anion Gap BUN Creatinine Est GFR ( Amer) Est GFR (Non-Af Amer) BUN/Creatinine Ratio Glucose POC Glucose (mg/dL) 144 H Calcium Total Bilirubin AST ALT Alkaline Phosphatase Total Protein Albumin Globulin Albumin/Globulin Ratio Ur Random Creatinine Ur Random Sodium Renal Sodium Excretion Imaging: cxr 03/22 - ett above ade; no clear infiltrate. small lung volumes. ?small left retrocardiac infiltrate? no effusion. cxr 03/23 - reviewed - small left lower lobe infiltrate cxr 03/24 - ett above josiah; ?left lower lobe infiltrate, improved Assessment: 32y M w/pmhx of alcohol abuse, depression, psoriasis; presented with Shortness of breath and acute alcohol induced hepatitis. He started developing symptoms of alcohol withdrawal/delirium tremens as well as JAVIER, transferred to ICU, intubated for acute DTs and metabolic demand. -Acute Respiratory failure, unspecified; 2/2 encephelopathy/withdrawal -Acute Alcohol withdrawal/Delirium tremens -Acute alcohol induced hepatitis -Acute liver failure -JAVIER, oliguric; pre-renal vs hepato-renal syndrome -Generalized anasarca, volume overload -Hyperlactatemia, resolved -Coagulopathy, improved -Hyperbilirubinemia -Acute Hepatic Encephelopathy Plan: Neuro- on precedex, off propofol, some more repsonsiveness. will hold precedex now and see. send off ammonia. combination of hepatic encephelopathy, propofol, ?uremia, post alcohol withdrawal, low grade sepsis may all be contributing factors. cont lactulose and rifaxamin. No bdz needed. minimize sedatives. cont thiamine/folate. CVS- hemodyn stable, on midodrine. no pressors. lasix held for JAVIER, may be pre- renal. Start 1/2 NS for hypernatremia. still loss from lactulose but needed for hyperammonemia. Replete K. No arrhythmias noted. Resp- Intubated, on CPAP, tolerating well. CXR today pending. less secretions noted, cont zosyn iv (day#3) ID- less febrile, WBC plateued at 16k. Blood cx neg. sputum smear mixed amanda, pending culture. Cont Zosyn IV (day#3), no change. GI- LFTs slow decline, bili decreasing. cont lactulose and rifaxamin for encephelopathy/hyperammonemia. Prednisolone 40mg po daily (day 07/01). Tolerating tube feeds. Loose stools+ while on lactulose q12h. On heparin prophylaxis. On abx for sepsis, pneumonia suspected. Based on severity of acute liver dysfunction he has a high risk of mortality, high risk of GI bleed and sepsis in this state. Protonix PPI. NGT feeds tolerated, free water 200q8h. FOBT +, hg stable though, will incr PPI to BID, doubt very large GI bleed which is causing BUN to rise. GI consult. Renal- Cr decreased today, BUN plateued. Off lasix now, will treat as pre-renal state. Nephrology consult appreciated. Albumin 25% q12h, 1/2 ns @ 50cc/hour x24 hours. Neg balance. Replete K. No acidosis. Cook in place. Suspect more ATN from pre-renal state now, less likely hepatorenal. Heme- hg stable. platelet count stable. Endo- insulin protocol, target <180 Musculsk- none Wounds- pressure ulcer prophylaxis Nutrition- NGT feeds ongoing, tolerating. DVT prophylaxis: heparin sq GI prophylaxis: PPI Central Line: left PICC Arterial Line: none Cook Cathetor: yes Disposition: ICU for respiratory failure, acute liver failure, JAVIER Code Status: full code Total Critical Care time is 40 minutes, excluding procedures/teaching Valerio Choudhary MD Associate Designer (Electronically Signed)
[2017-03-24] MEDS: CMC:Midodrine (NF) 5 MG TAB PO SCH ×3 (09:37→21:21)
[2017-03-24] MEDS: Albumin Human 25%* 100 ML in PREMIX* 0 ML IV SCH ×2 (09:37→20:13)
[2017-03-24] MEDS: Folic Acid TAB* 1 MG PO SCH (09:37)
[2017-03-24] MEDS: Potassium Chloride LIQUID* 20 MEQ PACKET G TUBE SCH ×2 (09:38→20:13)
[2017-03-24] MEDS: PrednisoLONE LIQ 3 MG/ML* 15 MG/5 ML UDC PO SCH (09:38)
[2017-03-24] MEDS: Multivitamins ADULT w/MIN LIQ* 15 ML UDC G TUBE SCH (09:38)
[2017-03-24] MEDS: Thiamine TAB* 100 MG TAB PO SCH (09:39)
[2017-03-24] MEDS: RiFAXimin* 550 MG TAB G TUBE SCH ×2 (09:39→20:14)
[2017-03-24] MEDS: Lansoprazole susp Kit 3 MG/ML (30 MG = 10 ML) G TUBE SCH ×2 (09:40→20:20)
[2017-03-24] MEDS: NS 0.45% 1000 ML BAG* 1,000 ML IV SCH (10:42)
[2017-03-24] MEDS: KCL 20 MEQ/100 ML IVPREMIX* 20 MEQ/100 ML BAG IV SCH ×2 (10:42→13:02)
--- NOTE | 2017-03-24 10:45 | RAD ---
Indication: Evaluate infiltrates. Single frontal view of the chest performed at 0940 hours was reviewed. Comparison is made with previous exam dated March 23, 2017. Cardiomegaly is noted. A G-tube is at the level of T3 well above the ade. Nasogastric tube is in place. Lung miller appear clear. IMPRESSION: NO ACTIVE CARDIOPULMONARY DISEASE IS NOTED. LINES AND TUBES APPEAR IN APPROPRIATE POSITION.
[2017-03-24] MEDS: Insulin GLARGINE(*) 1 UNITS UNIT SUBCUT SCH (12:09)
[2017-03-24 14:44] LABS: Total Protein, BF < 0.5 g/dL
--- NOTE | 2017-03-24 15:25 | PN ---
PROGRESS NOTE: DATE OF SERVICE/DICTATION: 03/24/17 - ROOM #ICU-09 HISTORY: Mr. Blankenship is still intubated and ventilated. He is presently undergoing an EEG. His physical exam is significant that he seems to have a little less edema than yesterday and he has been in negative fluid balance of approximately 3.5 L since yesterday and he has been in negative fluid balance for the past few days. In the face of this, he is maintaining a reasonable blood pressure, 125/59 with a pulse of 72. His abdomen seems less distended. He is less edematous. His sodium unfortunately has gone up to 150, his potassium is 3.5, total CO2 32, chloride 113, BUN 110, creatinine has fallen to 2.03, glucose is 141. Transaminases are marginally improved with AST of 157 and ALT of 104. IMPRESSION: 1. Hepatic injury. 2. Acute renal injury, now resolving. 3. Hypernatremia. At the present time, he needs to have an increase in his free water and he probably ought to be on Protonix for the gastrointestinal bleeding. At some point, it may be necessary to go ahead and do an endoscopy. [id number]/[facility] #: [id number] PHILLIP
--- NOTE | 2017-03-24 15:43 | EEG ---
ELECTROENCEPHALOGRAPHY: DATE OF STUDY: 03/24/17 - ROOM #ICU-08 LOCATION: The patient is in the ICU. ORDERING PHYSICIAN: Dr. Choudhary. HISTORY: This is a 32-year-old man, intubated in room 10 since 03/16/17. He was brought to the ER on 03/13/17 with shortness of breath and left-sided chest pain as well as a distended abdomen. He is a very heavy drinker. He had alcohol withdrawal on 03/15/17, and was transferred to ICU at that point with withdrawal symptoms as well as multiorgan failure. He was able to follow commands on 03/19/17 when sedation was weaned. His propofol was discontinued yesterday and Precedex was stopped at 8 o'clock this morning. The EEG was performed approximately 2-1/2 hours later. EEG is requested to evaluate for epileptiform abnormalities. MEDICATIONS: 1. Zofran. 2. Apresoline. 3. Benadryl. 4. Thiamine. 5. Prednisolone. 6. Multivitamin. 7. Folic acid. 8. Xifaxan. 9. Lansoprazole. 10. Lactulose. 11. Albumin. 12. Midodrine. 13. Humalog. 14. Lantus. 15. Precedex. DESCRIPTION: The background primarily demonstrated loss of the expected organization of the waking or sleep background and was predominated by polymorphic delta activity. This was in the range of 2 Hz generally and was diffuse in nature. At times there was some evidence of faster frequency activity , spindle-like activity, noted in the frontocentral regions, consistent with a sedated pattern. With verbal stimulation, the patient was noted to have relative suppression of delta activity and emergence of faster frequency activity, but there was no obvious emergence of anterior to posterior voltage or frequency gradients and no posterior dominant rhythm was observed. Throughout the recording, there were no epileptiform discharges, focal features , paroxysmal features or significant interhemispheric asymmetries. IMPRESSION: This is an abnormal EEG due to the presence of loss of background organization and diffuse slowing, but the EEG retains reactivity. These findings are suggestive of a [id number], nonspecific, diffuse encephalopathy. Some of these findings may be related to persistent sedating effects of recently administered medications, but these findings are nonspecific. [id number]/[facility] #: [id number] [facility]
[2017-03-25] MEDS: Insulin LISPRO* 1 UNITS UNIT SUBCUT SCH ×4 (00:48→18:38)
[2017-03-25] MEDS: Chlorhexidine MOUTHWASH 0.12%* 15 ML UDC TOPICAL SCH ×7 (03:30→23:46)
[2017-03-25] MEDS: NS 0.45% 1000 ML BAG* 1,000 ML IV SCH (03:38)
[2017-03-25] MEDS ORDERED: Morphine INJ* 2 MG/ML 1 ML SYRINGE IV ONE (04:00)
[2017-03-25] MEDS: Heparin VIAL(*) 5000 UNITS/ML VIAL (FIVE THOUSAND) SUBCUT SCH ×3 (05:15→21:37)
[2017-03-25 05:46] LABS: Hematocrit 37 % (42-52); Hemoglobin 12.2 g/dl (14.0-18.0); Mean Corpuscular HGB Conc 33 g/dl (31-36); Mean Corpuscular Hemoglobin 35 pg (27-31); Mean Corpuscular Volume 105 fL (80-94); Mean Platelet Volume 11 um3 (7.4-10.4); Red Blood Count 3.53 10^6/ul (4.0-5.4); Red Cell Distribution Width 16 % (10.5-15); White Blood Count 19.3 10^3/ul (3.5-10.8)
[2017-03-25 05:48] LABS: Comments Flag Yes
[2017-03-25 05:59] LABS: Albumin 3.4 g/dL (3.2-5.2); Calcium 9.9 mg/dL (8.6-10.3); EGFR African American 64.8 (>60); EGFR Non-African American 50.4 (>60); Globulin 3.2 g/dL (2-4); Potassium 3.7 mmol/L (3.5-5.0); Total Bilirubin 4.7 mg/dL (0.2-1.0); Total Protein 6.6 g/dL (6.4-8.9)
[2017-03-25] MEDS ORDERED: DEXMEDETOMIDINE IVPB SCH (06:00)
[2017-03-25] MEDS ORDERED: NS 0.9% IVPB SCH (06:00)
[2017-03-25 06:36] LABS: BUN/Creatinine Ratio 57.2 (8-20)
--- NOTE | 2017-03-25 08:19 | RAD ---
INDICATION: Evaluate infiltrates COMPARISON: March 24, 2017 TECHNIQUE: An AP portable view obtained at 0625 hours is submitted. FINDINGS: Bones/Soft Tissues: There are no acute bony findings. The endotracheal tube is in satisfactory position. Nasogastric tube passes normally through the mediastinum Cardiomediastinal: The cardiomediastinal silhouette is normal when allowing for depth of inspiration. Lungs: There are no infiltrates. The examination is expiratory with vascular crowding and mild bibasilar atelectasis Pleura: There are no pleural effusions. Other: None IMPRESSION: EXPIRATORY IMAGE WITH BIBASILAR ATELECTASIS. ENDOTRACHEAL TUBE IN PROPER POSITION
[2017-03-25] MEDS ORDERED: Midazolam* 1 MG/ML 2 ML VIAL (2 MG) IV ONE (09:00)
[2017-03-25] MEDS ORDERED: PREMIX* 0 ML ONE (09:26)
[2017-03-25] MEDS ORDERED: Albumin Human 25%* 100 ML in PREMIX* 0 ML IV SCH (09:30)
[2017-03-25] MEDS: Folic Acid TAB* 1 MG PO SCH (09:33)
[2017-03-25] MEDS: Multivitamins ADULT w/MIN LIQ* 15 ML UDC G TUBE SCH (09:34)
[2017-03-25] MEDS: Potassium Chloride LIQUID* 20 MEQ PACKET G TUBE SCH ×2 (09:34→21:03)
[2017-03-25] MEDS: Lansoprazole susp Kit 3 MG/ML (30 MG = 10 ML) G TUBE SCH ×2 (09:34→21:03)
[2017-03-25] MEDS: PrednisoLONE LIQ 3 MG/ML* 15 MG/5 ML UDC PO SCH (09:35)
[2017-03-25] MEDS: Thiamine TAB* 100 MG TAB PO SCH (09:36)
[2017-03-25] MEDS: RiFAXimin* 550 MG TAB G TUBE SCH ×2 (09:36→21:03)
[2017-03-25] MEDS ORDERED: Propofol* 100 ML ONE (10:00)
[2017-03-25] MEDS: Propofol* 100 ML IV SCH ×4 (10:00→23:46)
[2017-03-25] MEDS: CMC:Midodrine (NF) 5 MG TAB PO SCH (12:16)
[2017-03-25] MEDS: Insulin GLARGINE(*) 1 UNITS UNIT SUBCUT SCH (12:25)
[2017-03-25] MEDS ORDERED: ZOSYN 3.375 GM x ONE DOSE over 30 miuntes IVPB ×2 (13:30)
[2017-03-25 14:13] LABS: FIO2 100; Patient Temp ABG 101.6; Resp Rate 22; Ventilator Volume 450
[2017-03-25 14:16] LABS: PCO2 Arterial 46 mmHg (35-45)
--- NOTE | 2017-03-25 15:08 | RAD ---
INDICATION: Aspiration. COMPARISON: Comparison is made with a prior chest 3 study from March 25, 2017 from approximately 8 hours earlier. TECHNIQUE: 2 portable films of the chest were obtained. FINDINGS: The patient is status post intubation. The endotracheal tube tip is noted over the midline and projects just inferior to the clavicular heads. The heart appears mildly enlarged and unchanged. There are new infiltrates present in both right and left upper and lower lung miller. IMPRESSION: NEW BILATERAL INFILTRATES.
--- NOTE | 2017-03-25 17:00 | PN ---
Progress Note - Progress Note Date of Service: 03/25/17 Note: Progress Note Critical Care 24 hour events/significant events: -febrile 101.6, hemodyn stable. more awake this morning off precedex with eyes opening more but not following commands -during morning hours acutely more hypoxic and resp distress in 40s, sats dec to 80s -suctioning what appears to be tube feeds from him, copious amounts. -placed on 100%, peep to 8, sats mid 90s, started back on propofol for sedation Tele: NSR, sinus tachycardia Vitals: Vital Signs Temp 99.3 F 03/25/17 11:25 Pulse 84 03/25/17 15:30 Resp 28 03/25/17 15:30 BP 128/74 03/25/17 15:30 Pulse Ox 93 03/25/17 15:30 Intake & Output 03/24/17 03/25/17 03/25/17 18:59 06:59 18:59 Intake Total 1349 1337 872 Output Total 1500 2745 1500 Balance -151 -1408 -628 Weight 292 lb 15.909 oz Intake: IV Fluids 235 774 420 NS (0.45%) 774 420 ns 235 IVPB 189 30 110 ABX - ZOSYN 110 NS (0.45%) 30 ns 189 Medicated IV 140 100 342 CC - Dexmedetomidine/ 40 93 Precedex CC - Propofol/Diprivan 149 albumin 100 100 100 Tube Feeding 335 208 Tube Feeding Flush Amount 450 225 Output: Cook 1000 2225 800 Liquid Stool 500 520 700 Tube Feeding Residual 0 0 0 Amount Wasted O2/Vent: AC 24/550/+12/100%, sats 93% Infusions: propofol infusion; 1/2 NS Medications: Chlorhexidine Gluconate (Peridex Mouth Wash 0.12%*) 15 ml TOPICAL Q4H [facility] Last Admin: 03/25/17 12:16 Dose: 15 ml Dextrose (D50w Syringe 50 Ml*) 12.5 gm IV PUSH .FOR FS < 60 - SS PRN PRN Reason: FS < 60 Diphenhydramine HCl (Benadryl Po*) 50 mg PO Q6H PRN PRN Reason: ITCHING Last Admin: 03/15/17 22:20 Dose: 50 mg Folic Acid (Folvite Tab*) 1 mg PO DAILY [facility] Last Admin: 03/25/17 09:33 Dose: 1 mg Heparin Sodium (Porcine) (Heparin Flush Picc/Ml/Cvc(*)) 1 - 3 ml FLUSH 0600, 1800 [facility] PRN Reason: Protocol Last Admin: 03/25/17 05:15 Dose: 1 ml Heparin Sodium (Porcine) (Heparin Vial(*)) 5,000 units SUBCUT Q8HR [facility] Last Admin: 03/25/17 14:31 Dose: 5,000 units Hydralazine HCl (Apresoline Iv*) 5 mg IV SLOW PU Q6H PRN PRN Reason: BLOOD PRESSURE Propofol (Diprivan*) 100 mls @ 0 mls/hr IV .(Initial Rate) [facility]; Per Protocol PRN Reason: Protocol Last Admin: 03/25/17 10:00 Dose: 40 mls/hr Albumin Human 100 ml/ IV (Solution) 100 mls @ 0 mls/hr IV Q12HR [facility]; As Directed PRN Reason: Protocol Last Admin: 03/25/17 10:10 Dose: 100 mls/hr Piperacillin Sod/Tazobactam (Sod 3.375 gm/ Sodium Chloride) 100 mls @ 25 mls/ hr IVPB Q8H [facility] Dextrose (D5w 1000 Ml Bag*) 1,000 mls @ 50 mls/hr IV PER RATE [facility] Insulin Glargine (Lantus(*)) 10 units SUBCUT Q24H [facility] Last Admin: 03/25/17 12:25 Dose: 10 unit Insulin Human Lispro (Humalog*) 0 units SUBCUT FS Q6 ICU [facility] PRN Reason: Protocol Last Admin: 03/25/17 12:26 Dose: 2 units Lactulose (Lactulose*) 30 ml PO Q12HR [facility] Last Admin: 03/25/17 09:33 Dose: 30 ml Lansoprazole (Lansoprazole Susp Kit) 30 mg G TUBE BID [facility] Last Admin: 03/25/17 09:34 Dose: 30 mg Multivitamins (Theragran W/Minerals Liq*) 15 ml G TUBE DAILY [facility] Last Admin: 03/25/17 09:34 Dose: 15 ml Ondansetron HCl (Zofran Inj*) 4 mg IV Q6H PRN PRN Reason: NAUSEA Potassium Chloride (Klor-Con Liquid*) 20 meq G TUBE BID [facility] Last Admin: 03/25/17 09:34 Dose: 20 meq Prednisolone Sodium Phosphate (Prednisolone Liq 3 Mg/Ml 5 Ml Udc*) 40 mg PO DAILY [facility] Last Admin: 03/25/17 09:35 Dose: 40 mg Rifaximin (Xifaxan*) 550 mg G TUBE BID [facility] Last Admin: 03/25/17 09:36 Dose: 550 mg Thiamine HCl (Vitamin B-1 Tab*) 100 mg PO DAILY [facility] Last Admin: 03/25/17 09:36 Dose: 100 mg Physical Exam: General: intubated, sedated Head: normocephalic, atraumatic HEENT: no pallor, +icterus, moist mucous membranes Neck: soft, supple, no jvd CVS: normal rate, normal rhythm, no murmur Resp: bilateral air entry, ++rhales, no wheeze, +rhonchi, no acc muscle use Abdomen: soft, nontender, nondistended, bowel sounds present Ext: pulses+, warm, 1+edema UE and LE but improving Skin: intact, no breakdown, no dryness Neuro: intubated, sedated; moving more with stimuli, attempting to open eyes but not totally yet, doesnt follow commands Labs: Laboratory Results - last 24 hr 03/24/17 03/25/17 03/25/17 17:44 00:46 05:10 WBC 19.3 H RBC 3.53 L Hgb 12.2 L Hct 37 L MCV 105 H MCH 35 H MCHC 33 RDW 16 H Plt Count 96 L MPV 11 H Patient Temperature ABG pH ABG pCO2 ABG pO2 ABG HCO3 ABG O2 Saturation ABG Base Excess Respiration Rate Ventilator Type Vent Mode FiO2 Inspiratory Time PEEP Pressure Support Pressure Control EPAP IPAP BiPAP Sodium Potassium Chloride Carbon Dioxide Anion Gap BUN Creatinine Est GFR ( Amer) Est GFR (Non-Af Amer) BUN/Creatinine Ratio Glucose POC Glucose (mg/dL) 145 H 117 H Calcium Total Bilirubin AST ALT Alkaline Phosphatase Ammonia Total Protein Albumin Globulin Albumin/Globulin Ratio 03/25/17 03/25/17 03/25/17 05:10 05:55 12:15 WBC RBC Hgb Hct MCV MCH MCHC RDW Plt Count MPV Patient Temperature ABG pH ABG pCO2 ABG pO2 ABG HCO3 ABG O2 Saturation ABG Base Excess Respiration Rate Ventilator Type Vent Mode FiO2 Inspiratory Time PEEP Pressure Support Pressure Control EPAP IPAP BiPAP Sodium 155 H Potassium 3.7 Chloride 117 H Carbon Dioxide 29 Anion Gap 9 BUN 91 H Creatinine 1.59 H Est GFR ( Amer) 64.8 Est GFR (Non-Af Amer) 50.4 BUN/Creatinine Ratio 57.2 H Glucose 137 H POC Glucose (mg/dL) 131 H 159 H Calcium 9.9 Total Bilirubin 4.70 H AST 167 H ALT 112 H Alkaline Phosphatase 79 Ammonia Total Protein 6.6 Albumin 3.4 Globulin 3.2 Albumin/Globulin Ratio 1.1 03/25/17 03/25/17 13:35 14:05 WBC RBC Hgb Hct MCV MCH MCHC RDW Plt Count MPV Patient Temperature 101.6 ABG pH 7.47 H ABG pCO2 46 H ABG pO2 90 ABG HCO3 31.6 H ABG O2 Saturation 99.0 H ABG Base Excess 8.6 H Respiration Rate 22 Ventilator Type 450 Vent Mode cmv FiO2 100 Inspiratory Time .8 PEEP 8 Pressure Support Not Reportable Pressure Control Not Reportable EPAP Not Reportable IPAP Not Reportable BiPAP Not Reportable Sodium Potassium Chloride Carbon Dioxide Anion Gap BUN Creatinine Est GFR ( Amer) Est GFR (Non-Af Amer) BUN/Creatinine Ratio Glucose POC Glucose (mg/dL) Calcium Total Bilirubin AST ALT Alkaline Phosphatase Ammonia 80 H Total Protein Albumin Globulin Albumin/Globulin Ratio Imaging: cxr 03/22 - ett above ade; no clear infiltrate. small lung volumes. ?small left retrocardiac infiltrate? no effusion. cxr 03/23 - reviewed - small left lower lobe infiltrate cxr 03/24 - ett above josiah; ?left lower lobe infiltrate, improved cxr 03/25 later - ett above ade, Right sided multiple infiltrates+ now, ?left lower lobe infiltrates+ Assessment: 32y M w/pmhx of alcohol abuse, depression, psoriasis; presented with Shortness of breath and acute alcohol induced hepatitis. He started developing symptoms of alcohol withdrawal/delirium tremens as well as JAVIER, transferred to ICU, intubated for acute DTs and metabolic demand. -Acute Respiratory failure, unspecified; 2/2 encephelopathy/withdrawal -Acute Alcohol withdrawal/Delirium tremens -Acute alcohol induced hepatitis -Acute liver failure -JAVIER, oliguric; pre-renal vs hepato-renal syndrome -Generalized anasarca, volume overload -Hyperlactatemia, resolved -Coagulopathy, improved -Hyperbilirubinemia -Acute Hepatic Encephelopathy -acute aspiration pneumonia of Right side, lower and upper lobes Plan: Neuro- on propofol for sedation now due to acute resp distress. previous encephelopathy combination of hepatic encephelopathy, propofol, ?uremia, post alcohol withdrawal, low grade sepsis may all be contributing factors. cont lactulose and rifaxamin. No bdz needed. minimize sedatives. cont thiamine/ folate. CVS- hemodyn stable, off midodrine for hypertension now. change ivf to d5w at 50cc, check bmp in evenign 4-6 hours. Replete K. No arrhythmias noted. Resp- Intubated, now on AC 100%, peep 12; sats increaseing to mid 90s. CXR reviewed, new multilobar infiltrates+. pulm toilet. bronchodilators. start zosyn again (day#2). ID-febrile, WBC 19k. send blood cx. sputum normal amanda. Zosyn IV (day#2) GI- LFTs slow decline, bili decreasing. cont lactulose daily and rifaxamin for encephelopathy/hyperammonemia. Prednisolone 40mg po daily (day 07/31). d/c tube feeds for acute aspiration, ngt intermittent suction. Loose stools+ while on lactulose. On heparin prophylaxis. On abx for aspiration pneumonia now. Based on severity of acute liver dysfunction he has a high risk of mortality, high risk of GI bleed and sepsis in this state. Protonix PPI. NGT feeds tolerated, free water 200q8h. FOBT+, hg stable though, will incr PPI to BID, doubt very large GI bleed which is causing BUN to rise. Renal- Cr decreased today, BUN decreasing. Off lasix. change IVF to d5w 50cc/ hour, check bmp. making good urine on his own. losses from GI also via diarrhea. d/c albumin infusions to daily. Neg balance. Replete K. No acidosis. Cook in place. Suspect more ATN from pre-renal state or ATN which is resolving. Heme- hg stable. platelet count stable. Endo- insulin protocol, target <180 Musculsk- none Wounds- pressure ulcer prophylaxis Nutrition- NGT feeds ongoing, tolerating. DVT prophylaxis: heparin sq GI prophylaxis: PPI Central Line: left PICC Arterial Line: none Cook Cathetor: yes Disposition: ICU for respiratory failure, acute liver failure, JAVIER Code Status: full code Total Critical Care time is 40 minutes, excluding procedures/teaching Valerio Cohudhary MD Manufacturing Director (Electronically Signed)
[2017-03-25] MEDS: ZOSYN 3.375 GM Q8H per EXTENDED INFUSION IVPB SCH ×2 (17:26)
[2017-03-25] MEDS: Albumin Human 25%* 100 ML in PREMIX* 0 ML IV SCH (19:44)
[2017-03-25 21:50] LABS: BUN/Creatinine Ratio 45.5 (8-20); EGFR African American 53.7 (>60); EGFR Non-African American 41.8 (>60); Potassium 4.9 mmol/L (3.5-5.0)
[2017-03-25] MEDS: D5W 1000 ML BAG* 1,000 ML IV SCH (22:00)
[2017-03-26] MEDS: Insulin LISPRO* 1 UNITS UNIT SUBCUT SCH ×4 (00:20→18:11)
[2017-03-26] MEDS: ZOSYN 3.375 GM Q8H per EXTENDED INFUSION IVPB SCH ×6 (01:18→17:19)
[2017-03-26] MEDS: Propofol* 100 ML IV SCH ×5 (03:09→23:04)
[2017-03-26] MEDS: Chlorhexidine MOUTHWASH 0.12%* 15 ML UDC TOPICAL SCH ×5 (04:13→21:21)
[2017-03-26 04:22] LABS: Hematocrit 38 % (42-52); Hemoglobin 11.9 g/dl (14.0-18.0); Mean Corpuscular HGB Conc 32 g/dl (31-36); Mean Corpuscular Hemoglobin 34 pg (27-31); Mean Platelet Volume 12 um3 (7.4-10.4); Red Blood Count 3.55 10^6/ul (4.0-5.4); Red Cell Distribution Width 16 % (10.5-15); White Blood Count 20.1 10^3/ul (3.5-10.8)
[2017-03-26 04:23] LABS: Comments Flag Yes; Mean Corpuscular Volume 107 fL (80-94)
[2017-03-26 04:33] LABS: Albumin 3.3 g/dL (3.2-5.2); Calcium 9.6 mg/dL (8.6-10.3); EGFR African American 54.8 (>60); EGFR Non-African American 42.6 (>60); Globulin 3.3 g/dL (2-4); Potassium 4.3 mmol/L (3.5-5.0); Total Bilirubin 4.9 mg/dL (0.2-1.0); Total Protein 6.6 g/dL (6.4-8.9)
[2017-03-26] MEDS: Heparin VIAL(*) 5000 UNITS/ML VIAL (FIVE THOUSAND) SUBCUT SCH ×3 (06:11→21:32)
--- NOTE | 2017-03-26 08:10 | RAD ---
INDICATION: Aspiration. COMPARISON: Comparison is made with a prior chest x-ray study from one day earlier. TECHNIQUE: 2 portable films of the chest were obtained. FINDINGS: The patient is status post intubation, nasogastric tube placement. The catheters appear to be in normal position. There is a PICC present on the right side. The catheter tip projects over the superior vena cava. The heart appears mildly prominent and unchanged from the prior exam. There are bilateral patchy infiltrates which have progressed slightly from the prior study. There appears to be a small right pleural effusion which is unchanged. IMPRESSION: BILATERAL INFILTRATES DEMONSTRATING INTERVAL PROGRESSION.
[2017-03-26] MEDS: D5W 1000 ML BAG* 1,000 ML IV SCH ×3 (08:53→22:40)
[2017-03-26] MEDS: Lansoprazole susp Kit 3 MG/ML (30 MG = 10 ML) G TUBE SCH ×2 (09:11→21:32)
[2017-03-26] MEDS: Folic Acid TAB* 1 MG PO SCH (09:12)
[2017-03-26] MEDS: PrednisoLONE LIQ 3 MG/ML* 15 MG/5 ML UDC PO SCH (09:12)
[2017-03-26] MEDS: Potassium Chloride LIQUID* 20 MEQ PACKET G TUBE SCH ×2 (09:12→21:32)
[2017-03-26] MEDS: RiFAXimin* 550 MG TAB G TUBE SCH ×2 (09:12→21:32)
[2017-03-26] MEDS: Multivitamins ADULT w/MIN LIQ* 15 ML UDC G TUBE SCH (09:12)
[2017-03-26] MEDS: Thiamine TAB* 100 MG TAB PO SCH (09:12)
[2017-03-26] MEDS: Albumin Human 25%* 100 ML in PREMIX* 0 ML IV SCH (09:41)
[2017-03-26 09:46] LABS: BUN/Creatinine Ratio 43.3 (8-20); Calcium 9.5 mg/dL (8.6-10.3); EGFR African American 56.9 (>60); EGFR Non-African American 44.2 (>60); Potassium 4.2 mmol/L (3.5-5.0)
[2017-03-26 10:01] LABS: FIO2 90; Resp Rate 24; Ventilator Volume 550
[2017-03-26 10:05] LABS: PCO2 Arterial 40 mmHg (35-45)
--- NOTE | 2017-03-26 10:47 | PN ---
Progress Note - Progress Note Date of Service: 03/26/17 Note: Follow up for palliative service. I spoke with the patient's father and today at the bedside, given the patient's grim prognosis and multifactorial complications. They are both quite optimistic that Shabbir will improve, and feel he is in fact improving now in terms of his renal and hepatic function, and they understand the plan to be extubation in a few days when his pneumonia has improved, and they expect that his sensorium will clear at that time as well, when his propofol can be tapered. Their main concerns at this time seem focused on a plan to have Shabbir followed carefully to avoid relapse of drinking, and Pearl expresses significant frustration when describing their past attempts to obtain psych counselling and alcohol treatment. Shabbir's father describes him as "stubborn" in terms of compliance with recommended treatment, and it will be important to do significant education in order to have the patient successfully achieve long-term abstinence, if we are nasim enough to get to that point in his course of illness. For now, he remains critically ill with uncertain prognosis, and palliative care will simply follow in a supportive role.
--- NOTE | 2017-03-26 12:34 | PN ---
Progress Note - Progress Note Date of Service: 03/26/17 Note: Progress Note Critical Care 24 hour events/significant events: -acute hypoxic resp failure from acute aspiration of tube feeds yesterday -remains intubated, on propofol, opens eyes mildly -no pressors, BP stable -on 90% peep 12 now -started on d5w infusion for hypernatremia, 1/2 ns taken off. -family at bedside, updated about imaging and current status of aspiration. Tele: NSR Vitals: Vital Signs Temp 98.4 F 03/26/17 11:46 Pulse 65 03/26/17 12:00 Resp 24 03/26/17 12:00 BP 114/67 03/26/17 12:00 Pulse Ox 96 03/26/17 12:00 Intake & Output 03/25/17 03/26/17 03/26/17 18:59 06:59 18:59 Intake Total 872 1505 90 Output Total 1500 1650 0 Balance -628 -145 90 Weight 298 lb 8.094 oz Intake: IV Fluids 420 831 ABX - ZOSYN 100 IV fluids & IVPB 663 NS (0.45%) 420 68 IVPB 110 103 ABX - ZOSYN 110 IV fluids & IVPB 103 Medicated IV 342 481 CC - Dexmedetomidine/ 93 Precedex CC - Propofol/Diprivan 149 albumin 100 481 Tube Feeding Flush Amount 90 90 Output: Cook 800 1650 Liquid Stool 700 Tube Feeding Residual 0 0 Amount Wasted O2/Vent: AC 24/550/+12/90%, sats 98% Infusions: propofol infusion; d5w @ 125cc/hr Medications: Chlorhexidine Gluconate (Peridex Mouth Wash 0.12%*) 15 ml TOPICAL Q4H [facility] Last Admin: 03/26/17 09:11 Dose: 15 ml Dextrose (D50w Syringe 50 Ml*) 12.5 gm IV PUSH .FOR FS < 60 - SS PRN PRN Reason: FS < 60 Diphenhydramine HCl (Benadryl Po*) 50 mg PO Q6H PRN PRN Reason: ITCHING Last Admin: 03/15/17 22:20 Dose: 50 mg Folic Acid (Folvite Tab*) 1 mg PO DAILY [facility] Last Admin: 03/26/17 09:12 Dose: 1 mg Heparin Sodium (Porcine) (Heparin Flush Picc/Ml/Cvc(*)) 1 - 3 ml FLUSH 0600, 1800 [facility] PRN Reason: Protocol Last Admin: 03/26/17 06:11 Dose: 1 ml Heparin Sodium (Porcine) (Heparin Vial(*)) 5,000 units SUBCUT Q8HR [facility] Last Admin: 03/26/17 06:11 Dose: 5,000 units Hydralazine HCl (Apresoline Iv*) 5 mg IV SLOW PU Q6H PRN PRN Reason: BLOOD PRESSURE Propofol (Diprivan*) 100 mls @ 0 mls/hr IV .(Initial Rate) [facility]; Per Protocol PRN Reason: Protocol Last Admin: 03/26/17 10:51 Dose: 23.8 mls/hr Piperacillin Sod/Tazobactam (Sod 3.375 gm/ Sodium Chloride) 100 mls @ 25 mls/ hr IVPB Q8H [facility] Last Admin: 03/26/17 09:13 Dose: 25 mls/hr Albumin Human 100 ml/ IV (Solution) 100 mls @ 0 mls/hr IV DAILY [facility] PRN Reason: As Directed Last Admin: 03/26/17 09:41 Dose: 100 mls/hr Dextrose (D5w 1000 Ml Bag*) 1,000 mls @ 150 mls/hr IV PER RATE [facility] Insulin Glargine (Lantus(*)) 10 units SUBCUT Q24H [facility] Last Admin: 03/25/17 12:25 Dose: 10 unit Insulin Human Lispro (Humalog*) 0 units SUBCUT FS Q6 ICU [facility] PRN Reason: Protocol Last Admin: 03/26/17 05:14 Dose: Not Given Lansoprazole (Lansoprazole Susp Kit) 30 mg G TUBE BID [facility] Last Admin: 03/26/17 09:11 Dose: 30 mg Multivitamins (Theragran W/Minerals Liq*) 15 ml G TUBE DAILY [facility] Last Admin: 03/26/17 09:12 Dose: 15 ml Ondansetron HCl (Zofran Inj*) 4 mg IV Q6H PRN PRN Reason: NAUSEA Potassium Chloride (Klor-Con Liquid*) 20 meq G TUBE BID [facility] Last Admin: 03/26/17 09:12 Dose: 20 meq Prednisolone Sodium Phosphate (Prednisolone Liq 3 Mg/Ml 5 Ml Udc*) 40 mg PO DAILY [facility] Last Admin: 03/26/17 09:12 Dose: 40 mg Rifaximin (Xifaxan*) 550 mg G TUBE BID [facility] Last Admin: 03/26/17 09:12 Dose: 550 mg Thiamine HCl (Vitamin B-1 Tab*) 100 mg PO DAILY [facility] Last Admin: 03/26/17 09:12 Dose: 100 mg Physical Exam: General: intubated, sedated Head: normocephalic, atraumatic HEENT: no pallor, +icterus, moist mucous membranes Neck: soft, supple, no jvd CVS: normal rate, normal rhythm, no murmur Resp: bilateral air entry, ++rhales, no wheeze, no rhonchi, no acc muscle use Abdomen: soft, nontender, nondistended, bowel sounds present Ext: pulses+, warm, improved UE and LE edema, trace LE Skin: intact, no breakdown, no dryness Neuro: intubated, sedated; moving more with stimuli, does mildy open eyes on mild propofol Labs: Laboratory Results - last 24 hr 03/25/17 03/25/17 03/25/17 12:15 13:35 14:05 WBC RBC Hgb Hct MCV MCH MCHC RDW Plt Count MPV Patient Temperature 101.6 ABG pH 7.47 H ABG pCO2 46 H ABG pO2 90 ABG HCO3 31.6 H ABG O2 Saturation 99.0 H ABG Base Excess 8.6 H Respiration Rate 22 Ventilator Type 450 Vent Mode cmv FiO2 100 Inspiratory Time .8 PEEP 8 Pressure Support Not Reportable Pressure Control Not Reportable EPAP Not Reportable IPAP Not Reportable BiPAP Not Reportable Sodium Potassium Chloride Carbon Dioxide Anion Gap BUN Creatinine Est GFR ( Amer) Est GFR (Non-Af Amer) BUN/Creatinine Ratio Glucose POC Glucose (mg/dL) 159 H Calcium Total Bilirubin AST ALT Alkaline Phosphatase Ammonia 80 H Total Protein Albumin Globulin Albumin/Globulin Ratio 03/25/17 03/25/17 03/25/17 18:28 21:28 23:48 WBC RBC Hgb Hct MCV MCH MCHC RDW Plt Count MPV Patient Temperature ABG pH ABG pCO2 ABG pO2 ABG HCO3 ABG O2 Saturation ABG Base Excess Respiration Rate Ventilator Type Vent Mode FiO2 Inspiratory Time PEEP Pressure Support Pressure Control EPAP IPAP BiPAP Sodium 159 H* Potassium 4.9 Chloride 121 H Carbon Dioxide 31 Anion Gap 7 BUN 85 H Creatinine 1.87 H Est GFR ( Amer) 53.7 Est GFR (Non-Af Amer) 41.8 BUN/Creatinine Ratio 45.5 H Glucose 92 POC Glucose (mg/dL) 222 H 98 Calcium 10.0 Total Bilirubin AST ALT Alkaline Phosphatase Ammonia Total Protein Albumin Globulin Albumin/Globulin Ratio 03/26/17 03/26/17 03/26/17 04:06 04:06 04:06 WBC 20.1 H RBC 3.55 L Hgb 11.9 L Hct 38 L MCV 107 H MCH 34 H MCHC 32 RDW 16 H Plt Count 75 L MPV 12 H Patient Temperature ABG pH ABG pCO2 ABG pO2 ABG HCO3 ABG O2 Saturation ABG Base Excess Respiration Rate Ventilator Type Vent Mode FiO2 Inspiratory Time PEEP Pressure Support Pressure Control EPAP IPAP BiPAP Sodium 160 H* Potassium 4.3 Chloride 122 H Carbon Dioxide 30 Anion Gap 8 BUN 81 H Creatinine 1.84 H Est GFR ( Amer) 54.8 Est GFR (Non-Af Amer) 42.6 BUN/Creatinine Ratio 44.0 H Glucose 132 H POC Glucose (mg/dL) Calcium 9.6 Total Bilirubin 4.90 H AST 152 H ALT 111 H Alkaline Phosphatase 63 Ammonia 75 H Total Protein 6.6 Albumin 3.3 Globulin 3.3 Albumin/Globulin Ratio 1.0 03/26/17 03/26/17 03/26/17 05:13 08:45 09:53 WBC RBC Hgb Hct MCV MCH MCHC RDW Plt Count MPV Patient Temperature Not Reportable ABG pH 7.51 H ABG pCO2 40 ABG pO2 131 H ABG HCO3 31.3 H ABG O2 Saturation 100.3 H ABG Base Excess 8.2 H Respiration Rate 24 Ventilator Type 550 Vent Mode cmv FiO2 90 Inspiratory Time Not Reportable PEEP 12 Pressure Support Not Reportable Pressure Control Not Reportable EPAP Not Reportable IPAP Not Reportable BiPAP Not Reportable Sodium 160 H* Potassium 4.2 Chloride 122 H Carbon Dioxide 30 Anion Gap 8 BUN 77 H Creatinine 1.78 H Est GFR ( Amer) 56.9 Est GFR (Non-Af Amer) 44.2 BUN/Creatinine Ratio 43.3 H Glucose 122 H POC Glucose (mg/dL) 121 H Calcium 9.5 Total Bilirubin AST ALT Alkaline Phosphatase Ammonia Total Protein Albumin Globulin Albumin/Globulin Ratio Imaging: cxr 03/22 - ett above ade; no clear infiltrate. small lung volumes. ?small left retrocardiac infiltrate? no effusion. cxr 03/23 - reviewed - small left lower lobe infiltrate cxr 03/24 - ett above josiah; ?left lower lobe infiltrate, improved cxr 03/25 later - ett above ade, Right sided multiple infiltrates+ now, ?left lower lobe infiltrates+ cxr 03/26 - progressive bilateral infiltrates+; reviewed Assessment: 32y M w/pmhx of alcohol abuse, depression, psoriasis; presented with Shortness of breath and acute alcohol induced hepatitis. He started developing symptoms of alcohol withdrawal/delirium tremens as well as JAVIER, transferred to ICU, intubated for acute DTs and metabolic demand. -Acute Respiratory failure, unspecified; 2/2 encephelopathy/withdrawal and now aspiratoin pneumonia -Acute Alcohol withdrawal/Delirium tremens -Acute alcohol induced hepatitis -Acute liver failure -JAVIER, oliguric; pre-renal vs hepato-renal syndrome -Generalized anasarca, volume overload -Hyperlactatemia, resolved -Coagulopathy, improved -Hyperbilirubinemia -Acute Hepatic Encephelopathy -acute aspiration pneumonia of Right side, lower and upper lobes Plan: Neuro- cont propofol, sedation weaning and neurochecks daily. previous encephelopathy combination of hepatic encephelopathy, propofol, ?uremia, post alcohol withdrawal, low grade sepsis may all be contributing factors. ammonia improved, cont rifaxamin, off lactulose for volume depletion. No bdz needed. minimize sedatives. cont thiamine/folate. CVS- hemodyn stable, off midodrine for hypertension now. d5w at 150cc/hour now. check bmp in evening. Replete K. No arrhythmias noted. Resp- Intubated, CXR worsened infiltrates, ABG reviewed, dec fiow to 80s%, peep 12; Cont Zosyn for aspiration (day #3). less being suctioned from ETT now. pulm toilet. bronchodilators. ID- afebrile, WBC 20k. blood cx neg, send sputum. Zosyn IV (day#3) for aspiration pneumonia. GI- LFTs slow decline, bili decreasing. off lactulose now, cont rifaxamin for encephelopathy/hyperammonemia. Prednisolone 40mg po daily (day 11/28). tube feeds off for now, loose stools+ but should improve, monitor off lactulose now. ngt intermittent suction. On heparin prophylaxis. Based on severity of acute liver dysfunction he has a high risk of mortality, high risk of GI bleed and sepsis in this state. Protonix PPI BID for stool occult postivity. Renal- Cr decreasing, BUN slowly declining. Hypernatremia and hyperchloremia. this may also be due to his post ATN diuresis phase. d5w, increased to 150cc/ hour, check bmp at 3pm to trend rate of decline. off lactulose due to GI losses. no diuretics. d/c albumin and re-eval tomorrow. less anasarca noted now. Neg balance, GI and urinary losses. Replete K as needed. Cook in place. Heme- hg stable. thrombocytopenia now, may be due to acute aspiration/sepsis. follow plt count. on zosyn also now. Endo- insulin protocol, target <180 Musculsk- none Wounds- pressure ulcer prophylaxis Nutrition- NGT feeds off since yesterday AM. DVT prophylaxis: heparin sq GI prophylaxis: PPI Central Line: left PICC Arterial Line: none Cook Cathetor: yes Disposition: ICU for respiratory failure, acute liver failure, JAVIER Code Status: full code Total Critical Care time is 40 minutes, excluding procedures/teaching Valerio Choudhary MD [employer] Teacher (Electronically Signed)
[2017-03-26] MEDS: Insulin GLARGINE(*) 1 UNITS UNIT SUBCUT SCH (12:52)
[2017-03-26 15:48] LABS: BUN/Creatinine Ratio 44.2 (8-20); Calcium 9.5 mg/dL (8.6-10.3); EGFR African American 59.2 (>60); Potassium 4.6 mmol/L (3.5-5.0)
[2017-03-26 22:33] LABS: BUN/Creatinine Ratio 42.9 (8-20); Calcium 9.3 mg/dL (8.6-10.3); EGFR African American 60.8 (>60); EGFR Non-African American 47.3 (>60); Potassium 4.3 mmol/L (3.5-5.0)
[2017-03-27] MEDS: Insulin LISPRO* 1 UNITS UNIT SUBCUT SCH ×5 (00:35→23:27)
[2017-03-27] MEDS: Chlorhexidine MOUTHWASH 0.12%* 15 ML UDC TOPICAL SCH ×6 (00:41→20:10)
[2017-03-27] MEDS: ZOSYN 3.375 GM Q8H per EXTENDED INFUSION IVPB SCH ×6 (00:41→15:58)
[2017-03-27] MEDS: Propofol* 100 ML IV SCH ×5 (02:58→21:32)
[2017-03-27 05:28] LABS: Comments Flag Yes; Hematocrit 36 % (42-52); Hemoglobin 11.6 g/dl (14.0-18.0); Mean Corpuscular HGB Conc 32 g/dl (31-36); Mean Corpuscular Hemoglobin 34 pg (27-31); Mean Corpuscular Volume 105 fL (80-94); Mean Platelet Volume 12 um3 (7.4-10.4); Red Blood Count 3.44 10^6/ul (4.0-5.4); Red Cell Distribution Width 16 % (10.5-15); White Blood Count 20.3 10^3/ul (3.5-10.8)
[2017-03-27] MEDS: Heparin VIAL(*) 5000 UNITS/ML VIAL (FIVE THOUSAND) SUBCUT SCH ×3 (05:42→21:32)
[2017-03-27] MEDS: D5W 1000 ML BAG* 1,000 ML IV SCH (05:42)
[2017-03-27 05:43] LABS: Albumin 3.1 g/dL (3.2-5.2); Calcium 9.1 mg/dL (8.6-10.3); EGFR African American 61.7 (>60); EGFR Non-African American 47.9 (>60); Globulin 3.2 g/dL (2-4); Potassium 3.9 mmol/L (3.5-5.0); Total Bilirubin 4.1 mg/dL (0.2-1.0); Total Protein 6.3 g/dL (6.4-8.9)
[2017-03-27 06:05] LABS: FIO2 60; Patient Temp ABG 100.6; Resp Rate 24; Ventilator Volume 550
[2017-03-27 06:07] LABS: PCO2 Arterial 36 mmHg (35-45)
[2017-03-27] MEDS ORDERED: Albumin Human 25%* 50 ML BTL IV ONE (07:37)
[2017-03-27] MEDS: Albumin Human 25%* 100 ML in PREMIX* 0 ML IV SCH (07:40)
[2017-03-27] MEDS: Multivitamins ADULT w/MIN LIQ* 15 ML UDC G TUBE SCH (07:40)
[2017-03-27] MEDS: PrednisoLONE LIQ 3 MG/ML* 15 MG/5 ML UDC PO SCH (07:40)
[2017-03-27] MEDS: Thiamine TAB* 100 MG TAB PO SCH (07:42)
[2017-03-27] MEDS: Potassium Chloride LIQUID* 20 MEQ PACKET G TUBE SCH ×2 (07:42→20:10)
[2017-03-27] MEDS: RiFAXimin* 550 MG TAB G TUBE SCH ×2 (07:42→20:10)
[2017-03-27] MEDS: Folic Acid TAB* 1 MG PO SCH (07:42)
[2017-03-27] MEDS: Lansoprazole susp Kit 3 MG/ML (30 MG = 10 ML) G TUBE SCH ×2 (07:44→20:10)
--- NOTE | 2017-03-27 08:12 | RAD ---
INDICATION: Pneumonia. COMPARISON: Comparison is made with a prior chest x-ray study from March 26, 2017. TECHNIQUE: A portable view of the chest was obtained. FINDINGS: Note is made of endotracheal, nasogastric and PICC lines. The heart is within normal limits in size. The lungs are underinflated. There are small patchy bilateral infiltrates which have improved from the prior study. IMPRESSION: BILATERAL INFILTRATES WITH INTERVAL IMPROVEMENT.
[2017-03-27] MEDS ORDERED: D5W 1000 ML BAG* 1,000 ML IV SCH ×2 (08:39→16:44)
[2017-03-27] MEDS ORDERED: Loperamide LIQ* 2 MG/10 ML UDC PO ONE (10:50)
--- NOTE | 2017-03-27 11:07 | PN ---
Progress Note - Progress Note Date of Service: 03/27/17 Note: Progress Note Critical Care 24 hour events/significant events: -remains intubated; still loose stool, off lactulose -no pressors, propofol ongoing but opens eyes slightly -feeds still off -afebrile now. Tele: NSR Vitals: Vital Signs Temp 98.9 F 03/27/17 09:27 Pulse 73 03/27/17 10:30 Resp 25 03/27/17 10:53 BP 120/71 03/27/17 10:30 Pulse Ox 92 03/27/17 10:30 Intake & Output 03/26/17 03/27/17 03/27/17 18:59 06:59 18:59 Intake Total 1799 3034 169 Output Total 2500 2100 Balance -701 934 169 Weight 291 lb 7.218 oz Intake: IV Fluids 1092 2618 12 ABX - ZOSYN 285 D5W 1092 2275 IV fluids & IVPB 58 ns 12 IVPB 148 ABX - ZOSYN 100 ns 48 Medicated IV 289 356 57 CC - Propofol/Diprivan 189 albumin 100 356 57 Tube Feeding Flush Amount 90 60 100 NG Tube Irrigate Amount 180 Output: Urine 400 Cook 1600 1300 Liquid Stool 900 400 Tube Feeding Residual 0 Amount Wasted O2/Vent: AC 24/550/+12/60%, sats 97% Infusions: propofol iv; d5w @ 150cc/hr Medications: Chlorhexidine Gluconate (Peridex Mouth Wash 0.12%*) 15 ml TOPICAL Q4H [facility] Last Admin: 03/27/17 07:40 Dose: 15 ml Dextrose (D50w Syringe 50 Ml*) 12.5 gm IV PUSH .FOR FS < 60 - SS PRN PRN Reason: FS < 60 Diphenhydramine HCl (Benadryl Po*) 50 mg PO Q6H PRN PRN Reason: ITCHING Last Admin: 03/15/17 22:20 Dose: 50 mg Folic Acid (Folvite Tab*) 1 mg PO DAILY [facility] Last Admin: 03/27/17 07:42 Dose: 1 mg Heparin Sodium (Porcine) (Heparin Flush Picc/Ml/Cvc(*)) 1 - 3 ml FLUSH 0600, 1800 [facility] PRN Reason: Protocol Last Admin: 03/27/17 04:42 Dose: Not Given Heparin Sodium (Porcine) (Heparin Vial(*)) 5,000 units SUBCUT Q8HR [facility] Last Admin: 03/27/17 05:42 Dose: 5,000 units Hydralazine HCl (Apresoline Iv*) 5 mg IV SLOW PU Q6H PRN PRN Reason: BLOOD PRESSURE Propofol (Diprivan*) 100 mls @ 0 mls/hr IV .(Initial Rate) [facility]; Per Protocol PRN Reason: Protocol Last Admin: 03/27/17 08:11 Dose: 23.8 mls/hr Piperacillin Sod/Tazobactam (Sod 3.375 gm/ Sodium Chloride) 100 mls @ 25 mls/ hr IVPB Q8H [facility] Last Admin: 03/27/17 09:25 Dose: 25 mls/hr Albumin Human 100 ml/ IV (Solution) 100 mls @ 0 mls/hr IV DAILY [facility] PRN Reason: As Directed Last Admin: 03/27/17 07:40 Dose: 50 mls/hr Dextrose (D5w 1000 Ml Bag*) 1,000 mls @ 175 mls/hr IV PER RATE [facility] Insulin Glargine (Lantus(*)) 10 units SUBCUT Q24H [facility] Last Admin: 03/26/17 12:52 Dose: 10 unit Insulin Human Lispro (Humalog*) 0 units SUBCUT FS Q6 ICU [facility] PRN Reason: Protocol Last Admin: 03/27/17 05:47 Dose: Not Given Lansoprazole (Lansoprazole Susp Kit) 30 mg G TUBE BID [facility] Last Admin: 03/27/17 07:44 Dose: 30 mg Multivitamins (Theragran W/Minerals Liq*) 15 ml G TUBE DAILY [facility] Last Admin: 03/27/17 07:40 Dose: 15 ml Ondansetron HCl (Zofran Inj*) 4 mg IV Q6H PRN PRN Reason: NAUSEA Potassium Chloride (Klor-Con Liquid*) 20 meq G TUBE BID [facility] Last Admin: 03/27/17 07:42 Dose: 20 meq Prednisolone Sodium Phosphate (Prednisolone Liq 3 Mg/Ml 5 Ml Udc*) 40 mg PO DAILY [facility] Last Admin: 03/27/17 07:40 Dose: 40 mg Rifaximin (Xifaxan*) 550 mg G TUBE BID [facility] Last Admin: 03/27/17 07:42 Dose: 550 mg Thiamine HCl (Vitamin B-1 Tab*) 100 mg PO DAILY [facility] Last Admin: 03/27/17 07:42 Dose: 100 mg Physical Exam: General: intubated, sedated Head: normocephalic, atraumatic HEENT: no pallor, icterus improving, moist mucous membranes Neck: soft, supple, no jvd CVS: normal rate, normal rhythm, no murmur Resp: bilateral air entry, rhales improved bilaterally, no wheeze, no rhonchi, no acc muscle use Abdomen: soft, nontender, nondistended, bowel sounds present Ext: pulses+, warm, improved UE and LE edema, trace LE Skin: intact, no breakdown, no dryness Neuro: intubated, sedated; moving more with stimuli, does mildy open eyes on mild propofol Labs: Laboratory Results - last 24 hr 03/26/17 03/26/17 03/26/17 12:44 15:20 18:10 WBC RBC Hgb Hct MCV MCH MCHC RDW Plt Count MPV INR (Anticoag Therapy) APTT Patient Temperature ABG pH ABG pCO2 ABG pO2 ABG HCO3 ABG O2 Saturation ABG Base Excess Respiration Rate Ventilator Type Vent Mode FiO2 Inspiratory Time PEEP Pressure Support Pressure Control EPAP IPAP BiPAP Sodium 157 H* Potassium 4.6 Chloride 121 H Carbon Dioxide 29 Anion Gap 7 BUN 76 H Creatinine 1.72 H Est GFR ( Amer) 59.2 Est GFR (Non-Af Amer) 46.0 BUN/Creatinine Ratio 44.2 H Glucose 167 H POC Glucose (mg/dL) 164 H 121 H Calcium 9.5 Total Bilirubin AST ALT Alkaline Phosphatase Total Protein Albumin Globulin Albumin/Globulin Ratio 03/26/17 03/27/17 03/27/17 22:03 05:05 05:05 WBC 20.3 H RBC 3.44 L Hgb 11.6 L Hct 36 L MCV 105 H MCH 34 H MCHC 32 RDW 16 H Plt Count 70 L MPV 12 H INR (Anticoag Therapy) 1.27 H APTT 40.2 H Patient Temperature ABG pH ABG pCO2 ABG pO2 ABG HCO3 ABG O2 Saturation ABG Base Excess Respiration Rate Ventilator Type Vent Mode FiO2 Inspiratory Time PEEP Pressure Support Pressure Control EPAP IPAP BiPAP Sodium 156 H* Potassium 4.3 Chloride 119 H Carbon Dioxide 28 Anion Gap 9 BUN 72 H Creatinine 1.68 H Est GFR ( Amer) 60.8 Est GFR (Non-Af Amer) 47.3 BUN/Creatinine Ratio 42.9 H Glucose 117 H POC Glucose (mg/dL) Calcium 9.3 Total Bilirubin AST ALT Alkaline Phosphatase Total Protein Albumin Globulin Albumin/Globulin Ratio 03/27/17 03/27/17 05:05 05:55 WBC RBC Hgb Hct MCV MCH MCHC RDW Plt Count MPV INR (Anticoag Therapy) APTT Patient Temperature 100.6 ABG pH 7.50 H ABG pCO2 36 ABG pO2 68 L ABG HCO3 28.6 ABG O2 Saturation 97.3 ABG Base Excess 4.8 H Respiration Rate 24 Ventilator Type 550 Vent Mode cmv FiO2 60 Inspiratory Time 1.10 PEEP 12 Pressure Support Not Reportable Pressure Control Not Reportable EPAP Not Reportable IPAP Not Reportable BiPAP Not Reportable Sodium 155 H Potassium 3.9 Chloride 119 H Carbon Dioxide 28 Anion Gap 8 BUN 68 H Creatinine 1.66 H Est GFR ( Amer) 61.7 Est GFR (Non-Af Amer) 47.9 BUN/Creatinine Ratio 41.0 H Glucose 102 H POC Glucose (mg/dL) Calcium 9.1 Total Bilirubin 4.10 H AST 135 H ALT 108 H Alkaline Phosphatase 66 Total Protein 6.3 L Albumin 3.1 L Globulin 3.2 Albumin/Globulin Ratio 1.0 Imaging: cxr 03/22 - ett above ade; no clear infiltrate. small lung volumes. ?small left retrocardiac infiltrate? no effusion. cxr 03/23 - reviewed - small left lower lobe infiltrate cxr 03/24 - ett above josiah; ?left lower lobe infiltrate, improved cxr 03/25 later - ett above ade, Right sided multiple infiltrates+ now, ?left lower lobe infiltrates+ cxr 03/26 - progressive bilateral infiltrates+; reviewed cxr 03/27 - improving aeration bilaterally, less infiltrates noted Assessment: 32y M w/pmhx of alcohol abuse, depression, psoriasis; presented with Shortness of breath and acute alcohol induced hepatitis. He started developing symptoms of alcohol withdrawal/delirium tremens as well as JAVIER, transferred to ICU, intubated for acute DTs and metabolic demand. -Acute Respiratory failure, unspecified; 2/2 encephelopathy/withdrawal and now aspiratoin pneumonia -Acute Alcohol withdrawal/Delirium tremens -Acute alcohol induced hepatitis -Acute liver failure -JAVIER, oliguric; pre-renal vs hepato-renal syndrome -Generalized anasarca, volume overload -Hyperlactatemia, resolved -Coagulopathy, improved -Hyperbilirubinemia -Acute Hepatic Encephelopathy -acute aspiration pneumonia of Right side, lower and upper lobes Plan: Neuro- cont propofol, sedation weaning and neurochecks daily. previous encephelopathy combination of hepatic encephelopathy, propofol, ?uremia, post alcohol withdrawal, low grade sepsis may all be contributing factors. ammonia improved, cont rifaxamin, off lactulose. cont thiamine/folate. CVS- hemodyn stable. d5w at 150cc/hour, increase to 175cc/hour. diarrhea also+ but less. Replete K. No arrhythmias noted. Resp- Intubated, CXR improved today. ABG reviewed, remains hypoxic. on 60% peep 12; Cont Zosyn for aspiration (day #4). far elss secretions from ETT. pulm toilet. bronchodilators. ID- afebrile now. WBC 20k. blood cx neg. Zosyn IV (day#4) for aspiration pneumonia. GI- LFTs slow decline, bili decreasing. cont rifaxamin for encephelopathy/ hyperammonemia. Prednisolone 40mg po daily (day 09/30). tube feeds off for now, loose stools+, c.diff negative, start loperamide 2mg po once today to dec diarrhea. ngt intermittent suction, start free water. On heparin prophylaxis. Based on severity of acute liver dysfunction he has a high risk of mortality, high risk of GI bleed and sepsis in this state. Protonix PPI BID for stool occult postivity. Renal- Cr decreasing, BUN slowly declining. Hypernatremia and hyperchloremia. increase d5w to 175 cc/hour, check bmp at 3pm. ongoing diuresis without diuretics, ongoing diuresis post ATN. off lactulose due to GI losses. d/c albumin. neg balance, GI and urinary losses. Replete K as needed. Cook in place. Heme- hg stable. thrombocytopenia+ but >100k, 2/2 to hepatic dysfunction, critical illness, sepsis. follow plt count.on zosyn, off [id number]. Endo- insulin protocol, target <180 Musculsk- none Wounds- pressure ulcer prophylaxis Nutrition- NGT feeds off since yesterday AM. will restart feeds tomorrow at lower dose and advance. DVT prophylaxis: heparin sq GI prophylaxis: PPI Central Line: left PICC Arterial Line: none Cook Cathetor: yes Disposition: ICU for respiratory failure, acute liver failure, JAVIER updated family; will need to treat pneumonia, assess neuro status. goal to extubate in coming days if neuro status allows. discussed about tracheostomy. Code Status: full code Total Critical Care time is 40 minutes, excluding procedures/teaching Valerio Choudhary MD Boiler Shop Mechanic (Electronically Signed)
[2017-03-27] MEDS: Insulin GLARGINE(*) 1 UNITS UNIT SUBCUT SCH (12:00)
[2017-03-27 16:08] LABS: BUN/Creatinine Ratio 37.2 (8-20); EGFR African American 62.5 (>60); EGFR Non-African American 48.6 (>60); Potassium 4.4 mmol/L (3.5-5.0)
[2017-03-27 22:02] LABS: BUN/Creatinine Ratio 35.3 (8-20); EGFR African American 66.2 (>60); EGFR Non-African American 51.5 (>60); Potassium 4.3 mmol/L (3.5-5.0)
[2017-03-28] MEDS: Chlorhexidine MOUTHWASH 0.12%* 15 ML UDC TOPICAL SCH ×6 (00:37→20:38)
[2017-03-28] MEDS: ZOSYN 3.375 GM Q8H per EXTENDED INFUSION IVPB SCH ×6 (00:37→16:47)
[2017-03-28] MEDS: Propofol* 100 ML IV SCH ×5 (02:23→22:49)
[2017-03-28] MEDS: Heparin VIAL(*) 5000 UNITS/ML VIAL (FIVE THOUSAND) SUBCUT SCH (05:42)
[2017-03-28 06:31] LABS: Hematocrit 36 % (42-52); Hemoglobin 11.7 g/dl (14.0-18.0); Mean Corpuscular HGB Conc 32 g/dl (31-36); Mean Corpuscular Hemoglobin 34 pg (27-31); Mean Corpuscular Volume 105 fL (80-94); Mean Platelet Volume 13 um3 (7.4-10.4); Red Blood Count 3.45 10^6/ul (4.0-5.4); Red Cell Distribution Width 16 % (10.5-15); White Blood Count 23.5 10^3/ul (3.5-10.8)
[2017-03-28 06:36] LABS: Comments Flag Yes
[2017-03-28 06:46] LABS: BUN/Creatinine Ratio 35.8 (8-20); Calcium 8.8 mg/dL (8.6-10.3); EGFR African American 70.4 (>60); EGFR Non-African American 54.7 (>60); Globulin 3.2 g/dL (2-4); Potassium 3.8 mmol/L (3.5-5.0); Total Bilirubin 4.3 mg/dL (0.2-1.0); Total Protein 6.2 g/dL (6.4-8.9)
[2017-03-28] MEDS: Insulin LISPRO* 1 UNITS UNIT SUBCUT SCH ×3 (07:37→16:56)
[2017-03-28] MEDS ORDERED: Albumin Human 25%* 50 ML BTL IV ONE (08:19)
[2017-03-28] MEDS: Albumin Human 25%* 100 ML in PREMIX* 0 ML IV SCH ×2 (08:29→08:49)
[2017-03-28] MEDS: Lansoprazole susp Kit 3 MG/ML (30 MG = 10 ML) G TUBE SCH ×2 (08:30→20:38)
[2017-03-28] MEDS: Folic Acid TAB* 1 MG PO SCH (08:30)
[2017-03-28] MEDS: PrednisoLONE LIQ 3 MG/ML* 15 MG/5 ML UDC PO SCH (08:31)
[2017-03-28] MEDS: Multivitamins ADULT w/MIN LIQ* 15 ML UDC G TUBE SCH (08:31)
[2017-03-28] MEDS: Potassium Chloride LIQUID* 20 MEQ PACKET G TUBE SCH ×2 (08:31→20:38)
[2017-03-28] MEDS: Thiamine TAB* 100 MG TAB PO SCH (08:32)
[2017-03-28] MEDS: RiFAXimin* 550 MG TAB G TUBE SCH ×2 (08:32→20:38)
--- NOTE | 2017-03-28 10:23 | PN ---
Progress Note - Progress Note Date of Service: 03/28/17 Note: Progress Note Critical Care 24 hour events/significant events: -intubated, no pressors, on sedation but awakens and follows commands -afebrile -slowing of diarrhea Tele: NSR Vitals: Vital Signs Temp 99.1 F 03/28/17 08:24 Pulse 76 03/28/17 10:00 Resp 21 03/28/17 10:07 BP 109/65 03/28/17 10:00 Pulse Ox 95 03/28/17 10:00 Intake & Output 03/27/17 03/28/17 03/28/17 18:59 06:59 18:59 Intake Total 2154 2319 300 Output Total 850 900 Balance 1304 1419 300 Weight 295 lb 6.711 oz Intake: IV Fluids 1354 2037 ABX - ZOSYN 220 D5W 1342 1771 IV fluids & IVPB 46 ns 12 IVPB 103 ABX - ZOSYN 103 Medicated IV 197 282 CC - Propofol/Diprivan 140 albumin 57 282 Tube Feeding Flush Amount 500 300 Output: Cook 850 700 Liquid Stool 200 O2/Vent: AC 24/550/+12/60%, sats 97% -> dec to 18/550/+10/60%, breathing over at 24 Infusions: propofol iv; d5w @ 100cc/hr Medications: Chlorhexidine Gluconate (Peridex Mouth Wash 0.12%*) 15 ml TOPICAL Q4H [facility] Last Admin: 03/28/17 08:27 Dose: 15 ml Dextrose (D50w Syringe 50 Ml*) 12.5 gm IV PUSH .FOR FS < 60 - SS PRN PRN Reason: FS < 60 Diphenhydramine HCl (Benadryl Po*) 50 mg PO Q6H PRN PRN Reason: ITCHING Last Admin: 03/15/17 22:20 Dose: 50 mg Folic Acid (Folvite Tab*) 1 mg PO DAILY [facility] Last Admin: 03/28/17 08:30 Dose: 1 mg Heparin Sodium (Porcine) (Heparin Flush Picc/Ml/Cvc(*)) 1 - 3 ml FLUSH 0600, 1800 [facility] PRN Reason: Protocol Last Admin: 03/28/17 05:53 Dose: Not Given Heparin Sodium (Porcine) (Heparin Vial(*)) 5,000 units SUBCUT Q8HR [facility] Last Admin: 03/28/17 05:42 Dose: 5,000 units Hydralazine HCl (Apresoline Iv*) 5 mg IV SLOW PU Q6H PRN PRN Reason: BLOOD PRESSURE Propofol (Diprivan*) 100 mls @ 0 mls/hr IV .(Initial Rate) [facility]; Per Protocol PRN Reason: Protocol Last Admin: 03/28/17 05:42 Dose: 15.8 mls/hr Piperacillin Sod/Tazobactam (Sod 3.375 gm/ Sodium Chloride) 100 mls @ 25 mls/ hr IVPB Q8H [facility] Last Admin: 03/28/17 08:51 Dose: 25 mls/hr Albumin Human 100 ml/ IV (Solution) 100 mls @ 0 mls/hr IV DAILY [facility] PRN Reason: As Directed Last Admin: 03/28/17 08:49 Dose: Not Given Dextrose (D5w 1000 Ml Bag*) 1,000 mls @ 150 mls/hr IV PER RATE [facility] Insulin Glargine (Lantus(*)) 10 units SUBCUT Q24H [facility] Last Admin: 03/27/17 12:00 Dose: 10 unit Insulin Human Lispro (Humalog*) 0 units SUBCUT FS Q6 ICU [facility] PRN Reason: Protocol Last Admin: 03/28/17 07:37 Dose: Not Given Lansoprazole (Lansoprazole Susp Kit) 30 mg G TUBE BID [facility] Last Admin: 03/28/17 08:30 Dose: 30 mg Multivitamins (Theragran W/Minerals Liq*) 15 ml G TUBE DAILY [facility] Last Admin: 03/28/17 08:31 Dose: 15 ml Ondansetron HCl (Zofran Inj*) 4 mg IV Q6H PRN PRN Reason: NAUSEA Potassium Chloride (Klor-Con Liquid*) 20 meq G TUBE BID [facility] Last Admin: 03/28/17 08:31 Dose: 20 meq Prednisolone Sodium Phosphate (Prednisolone Liq 3 Mg/Ml 5 Ml Udc*) 40 mg PO DAILY [facility] Last Admin: 03/28/17 08:31 Dose: 40 mg Rifaximin (Xifaxan*) 550 mg G TUBE BID [facility] Last Admin: 03/28/17 08:32 Dose: 550 mg Thiamine HCl (Vitamin B-1 Tab*) 100 mg PO DAILY [facility] Last Admin: 03/28/17 08:32 Dose: 100 mg Physical Exam: General: intubated, sedated Head: normocephalic, atraumatic HEENT: no pallor, icterus improving, moist mucous membranes Neck: soft, supple, no jvd CVS: normal rate, normal rhythm, no murmur Resp: bilateral air entry, rhales improved bilaterally, no wheeze, no rhonchi, no acc muscle use Abdomen: soft, nontender, minimally distended, bowel sounds present Ext: pulses+, warm, improved UE and LE edema, trace LE Skin: intact, no breakdown, no dryness Neuro: intubated, sedated; moving more with stimuli, does follow commands Labs: Laboratory Results - last 24 hr 03/27/17 03/27/17 03/27/17 11:56 15:45 21:42 WBC RBC Hgb Hct MCV MCH MCHC RDW Plt Count MPV Sodium 149 H 149 H Potassium 4.4 4.3 Chloride 116 H 116 H Carbon Dioxide 25 27 Anion Gap 8 6 BUN 61 H 55 H Creatinine 1.64 H 1.56 H Est GFR ( Amer) 62.5 66.2 Est GFR (Non-Af Amer) 48.6 51.5 BUN/Creatinine Ratio 37.2 H 35.3 H Glucose 129 H 102 H POC Glucose (mg/dL) 125 H Calcium 9.0 9.0 Total Bilirubin AST ALT Alkaline Phosphatase Total Protein Albumin Globulin Albumin/Globulin Ratio 03/28/17 03/28/17 05:36 05:36 WBC 23.5 H RBC 3.45 L Hgb 11.7 L Hct 36 L MCV 105 H MCH 34 H MCHC 32 RDW 16 H Plt Count 70 L MPV 13 H Sodium 150 H Potassium 3.8 Chloride 116 H Carbon Dioxide 26 Anion Gap 8 BUN 53 H Creatinine 1.48 H Est GFR ( Amer) 70.4 Est GFR (Non-Af Amer) 54.7 BUN/Creatinine Ratio 35.8 H Glucose 92 POC Glucose (mg/dL) Calcium 8.8 Total Bilirubin 4.30 H AST 188 H ALT 145 H Alkaline Phosphatase 70 Total Protein 6.2 L Albumin 3.0 L Globulin 3.2 Albumin/Globulin Ratio 0.9 L Imaging: cxr 03/22 - ett above ade; no clear infiltrate. small lung volumes. ?small left retrocardiac infiltrate? no effusion. cxr 03/23 - reviewed - small left lower lobe infiltrate cxr 03/24 - ett above josiah; ?left lower lobe infiltrate, improved cxr 03/25 later - ett above ade, Right sided multiple infiltrates+ now, ?left lower lobe infiltrates+ cxr 03/26 - progressive bilateral infiltrates+; reviewed cxr 03/27 - improving aeration bilaterally, less infiltrates noted cxr 03/28 - improving aeration bilaterally Assessment: 32y M w/pmhx of alcohol abuse, depression, psoriasis; presented with Shortness of breath and acute alcohol induced hepatitis. He started developing symptoms of alcohol withdrawal/delirium tremens as well as JAVIER, transferred to ICU, intubated for acute DTs and metabolic demand. -Acute Respiratory failure, unspecified; 2/2 encephelopathy/withdrawal and now aspiratoin pneumonia -Acute Alcohol withdrawal/Delirium tremens -Acute alcohol induced hepatitis -Acute liver failure -JAVIER, oliguric; pre-renal vs hepato-renal syndrome -Generalized anasarca, volume overload -Hyperlactatemia, resolved -Coagulopathy, improved -Hyperbilirubinemia -Acute Hepatic Encephelopathy -acute aspiration pneumonia of Right side, lower and upper lobes Plan: Neuro- cont propofol, sedation weaning and neurochecks daily. more responsive past 24-48 hours. previous encephelopathy combination of hepatic encephelopathy , propofol, ?uremia, post alcohol withdrawal, low grade sepsis may all be contributing factors. ammonia improved, cont rifaxamin, off lactulose. cont thiamine/folate. CVS- hemodyn stable. d5w at 100 -> incr to 150cc/hour. diarrhea also+ but less. Replete K as needed. No arrhythmias noted. Resp- Intubated, CXR improved today. ABG reviewed, remains hypoxic but improving. on 60% peep 12-> dec to 10, follow o2 sats, good pleth; Cont Zosyn for aspiration (day #5). less secretions each day from ETT. pulm toilet. bronchodilators. if neuro status remains stable, and resp status imrpoving, will plan to hopefully extubate in coming days. ID- afebrile now. WBC 23k. blood cx neg. Zosyn IV (day#5) for aspiration pneumonia. GI- LFTs increased today, bili up again. no hypotension noted. cont rifaxamin for encephelopathy/hyperammonemia. Prednisolone 40mg po daily (day ). will restart tube feeds today at low dose and reassess tolerance. c.diff negative, loperamide 1mg po once today again. Freew ater q6h tolerating. On heparin prophylaxis. Based on severity of acute liver dysfunction he has a high risk of mortality, high risk of GI bleed and sepsis in this state. Protonix PPI BID for stool occult postivity. GI consult called/placed. Renal- JAVIER, Cr increased again, making urine. I feel a component of hypovolemia. d/c albumin. d5w at 150cc/hour. GI losses also ongoing. Hypernatremia and hyperchloremia, d5w to 150 cc/hour. ongoing diuresis post ATN. off lactulose due to GI losses. neg balance, GI and urinary losses. Replete K as needed. Cook in place. Heme- hg stable. thrombocytopenia+ 70k, no bleeding. cont to monitor. 2/2 to hepatic dysfunction, critical illness, sepsis. follow plt count.on zosyn. send off HIT panel, d/c heparin sq, start fondaparinux sq 2.5mg daily for prophylaxis. Endo- insulin protocol, target <180 Musculsk- none Wounds- pressure ulcer prophylaxis Nutrition- restart tube feeds 10cc/hour, increase to 20 after 8 hours and reassess tomorrow. DVT prophylaxis: fondaparinux sq daily GI prophylaxis: PPI Central Line: left PICC Arterial Line: none Cook Cathetor: yes Disposition: ICU for respiratory failure, acute liver failure, JAVIER Code Status: full code Total Critical Care time is 40 minutes, excluding procedures/teaching Valerio Choudhary MD Costume Technician (Electronically Signed)
[2017-03-28] MEDS ORDERED: Loperamide LIQ* 2 MG/10 ML UDC PO ONE (11:57)
[2017-03-28] MEDS: D5W 1000 ML BAG* 1,000 ML IV SCH ×2 (12:23→19:07)
[2017-03-28] MEDS: Insulin GLARGINE(*) 1 UNITS UNIT SUBCUT SCH (12:44)
[2017-03-28] MEDS: Fondaparinux* 2.5 MG/0.5 ML SYRINGE SUBCUT SCH (13:57)
[2017-03-28] MEDS: fentaNYL* 50 MCG/ML 2 ML VIAL (100 MCG VIAL) IV SLOW PU PRN (14:55)
[2017-03-28 20:55] LABS: BUN/Creatinine Ratio 32.6 (8-20); Calcium 8.8 mg/dL (8.6-10.3); EGFR African American 74.4 (>60); EGFR Non-African American 57.9 (>60); Potassium 4.4 mmol/L (3.5-5.0)
[2017-03-29] MEDS: Insulin LISPRO* 1 UNITS UNIT SUBCUT SCH ×4 (00:16→18:01)
[2017-03-29] MEDS: fentaNYL* 50 MCG/ML 2 ML VIAL (100 MCG VIAL) IV SLOW PU PRN ×2 (00:16→05:30)
[2017-03-29] MEDS: ZOSYN 3.375 GM Q8H per EXTENDED INFUSION IVPB SCH ×6 (00:19→17:38)
[2017-03-29] MEDS: Chlorhexidine MOUTHWASH 0.12%* 15 ML UDC TOPICAL SCH ×6 (00:19→20:01)
[2017-03-29] MEDS: D5W 1000 ML BAG* 1,000 ML IV SCH ×3 (01:39→14:44)
[2017-03-29] MEDS: Propofol* 100 ML IV SCH ×6 (03:09→21:38)
[2017-03-29 05:51] LABS: Hematocrit 35 % (42-52); Hemoglobin 11.8 g/dl (14.0-18.0); Mean Corpuscular HGB Conc 33 g/dl (31-36); Mean Corpuscular Hemoglobin 35 pg (27-31); Mean Platelet Volume 13 um3 (7.4-10.4); Red Blood Count 3.36 10^6/ul (4.0-5.4); Red Cell Distribution Width 15 % (10.5-15); White Blood Count 27.6 10^3/ul (3.5-10.8)
[2017-03-29 06:02] LABS: Comments Flag Yes; Mean Corpuscular Volume 105 fL (80-94)
[2017-03-29 06:14] LABS: Albumin 3.1 g/dL (3.2-5.2); BUN/Creatinine Ratio 30.9 (8-20); Calcium 8.6 mg/dL (8.6-10.3); EGFR African American 77.6 (>60); EGFR Non-African American 60.4 (>60); Globulin 3.2 g/dL (2-4); Potassium 3.6 mmol/L (3.5-5.0); Total Bilirubin 4.1 mg/dL (0.2-1.0); Total Protein 6.3 g/dL (6.4-8.9)
[2017-03-29] MEDS: Potassium Chloride LIQUID* 20 MEQ PACKET G TUBE SCH ×2 (08:17→21:17)
[2017-03-29] MEDS: Folic Acid TAB* 1 MG PO SCH (08:17)
[2017-03-29] MEDS: PrednisoLONE LIQ 3 MG/ML* 15 MG/5 ML UDC PO SCH (08:18)
[2017-03-29] MEDS: Thiamine TAB* 100 MG TAB PO SCH (08:18)
[2017-03-29] MEDS: RiFAXimin* 550 MG TAB G TUBE SCH ×2 (08:18→21:17)
[2017-03-29] MEDS: Multivitamins ADULT w/MIN LIQ* 15 ML UDC G TUBE SCH (08:18)
[2017-03-29] MEDS: Fondaparinux* 2.5 MG/0.5 ML SYRINGE SUBCUT SCH (08:18)
[2017-03-29] MEDS ORDERED: Furosemide IV* 10 MG/ML VIAL (40 MG) IV ONE (09:02)
[2017-03-29] MEDS: Lansoprazole susp Kit 3 MG/ML (30 MG = 10 ML) G TUBE SCH ×2 (12:26→21:17)
[2017-03-29] MEDS: Insulin GLARGINE(*) 1 UNITS UNIT SUBCUT SCH (12:27)
--- NOTE | 2017-03-29 15:38 | PN ---
Critical Care Services: Patient is awake and responds to verbal commands. Attempted wean from the ventilator was close to being successful. Only new problem is increasing leukocytosis. Possibly due to recurrent aspiration - aspiration of tube feedings has been wirtnessed. Vital Signs: Temp Pulse Resp BP SpO2 FiO2 98.9 F 84 28 122/73 94 50 Physical Exam: Gen:Somnolent but arousable HEENT:No sceral icterus Lungs:scattered rhonchi. No wheezes or crackles. Extremities: War. Not cyanotic. 1+ edema both LEs. Fluid Balance (Past 24 Hours): 03/29/17 06:59 Intake Total 5149 Output Total 2000 Balance +3149 Weight 299 lb 13.259 oz Intake: IV Fluids 3674 ABX - ZOSYN 110 D5W 3507 IV fluids & IVPB 21 NS KVO 36 IVPB 210 ABX - ZOSYN 210 NS KVO Medicated IV 506 CC - Propofol/Diprivan 506 albumin Tube Feeding 59 Tube Feeding Flush Amount 700 NG Tube Irrigate Amount Output: Urine Cook 1500 Liquid Stool 500 Tube Feeding Residual 0 Amount Wasted Labs: 03/29/17 03/29/17 03/29/17 05:35 05:35 12:16 WBC 27.6 H RBC 3.36 L Hgb 11.8 L Hct 35 L MCV 105 H MCH 35 H MCHC 33 Plt Count 76 L Sodium 139 Potassium 3.6 Chloride 110 Carbon Dioxide 23 Anion Gap 6 BUN 42 Creatinine 1.36 Glucose 107 H POC Glucose (mg/dL) 162 H Calcium 8.6 Total Bilirubin 4.10 H AST 244 ALT 196 Alkaline Phosphatase 76 Total Protein 6.3 L Albumin 3.1 L Globulin 3.2 Albumin/Globulin Ratio 1.0 Studies: CXR: Elevated right hemidiaphragm Nutrition: Tube feedings Impression: Hepatic encephalopathy has resolved. Has recurrent aspiration, but no apparent pneumonia on portable CXR. Plan: Continue wean attempts. No change in management plan. Patients and father were present at bedside and were informed of current condition and prognosis. Critical Care Time:40 minutes
[2017-03-30] MEDS: ZOSYN 3.375 GM Q8H per EXTENDED INFUSION IVPB SCH ×6 (00:51→16:43)
[2017-03-30] MEDS: Chlorhexidine MOUTHWASH 0.12%* 15 ML UDC TOPICAL SCH ×6 (00:51→19:39)
[2017-03-30] MEDS: Propofol* 100 ML IV SCH ×7 (01:56→22:34)
[2017-03-30] MEDS: D5W 1000 ML BAG* 1,000 ML IV SCH ×3 (01:57→21:09)
[2017-03-30] MEDS: Insulin LISPRO* 1 UNITS UNIT SUBCUT SCH ×4 (02:48→18:47)
[2017-03-30] MEDS: Lansoprazole susp Kit 3 MG/ML (30 MG = 10 ML) G TUBE SCH ×2 (08:44→19:39)
[2017-03-30] MEDS: RiFAXimin* 550 MG TAB G TUBE SCH ×2 (08:45→19:39)
[2017-03-30] MEDS: PrednisoLONE LIQ 3 MG/ML* 15 MG/5 ML UDC PO SCH (08:52)
[2017-03-30] MEDS: Folic Acid TAB* 1 MG PO SCH (08:53)
[2017-03-30] MEDS: Multivitamins ADULT w/MIN LIQ* 15 ML UDC G TUBE SCH (08:53)
[2017-03-30] MEDS: Fondaparinux* 2.5 MG/0.5 ML SYRINGE SUBCUT SCH (08:53)
[2017-03-30] MEDS: Thiamine TAB* 100 MG TAB PO SCH (11:54)
[2017-03-30] MEDS: Potassium Chloride LIQUID* 20 MEQ PACKET G TUBE SCH ×2 (11:54→19:39)
[2017-03-30] MEDS: Insulin GLARGINE(*) 1 UNITS UNIT SUBCUT SCH (12:10)
--- NOTE | 2017-03-30 17:18 | PN ---
Critical Care Services: Patient had an episode of respiratory distress last night and was put back on full ventilatory support. he continues to have copius secretions aspirated from upper airway, but is afebrile. Vital Signs: Temp Pulse Resp BP SpO2 FiO2 99.1 F 82 28 127/67 92 50 Physical Exam: Gen:Somnolent bu arousable Lungs:scattered rhochchi. No crackles Abdomen: Distended. Extremities:2-3+ edema. Fluid Balance (Past 24 Hours): 03/30/17 06:59 Intake Total 4788 Output Total 3625 Balance +1163 Weight 304 lb Intake: IV Fluids 3043 ABX - ZOSYN 116 D5W 2768 IV fluids & IVPB NS KVO 159 IVPB 105 ABX - ZOSYN 105 Medicated IV 568 CC - Propofol/Diprivan 568 albumin Tube Feeding 472 Tube Feeding Flush Amount 600 Output: Cook 3125 Liquid Stool 500 Tube Feeding Residual Amount Wasted Labs: 03/29/17 03/30/17 03/30/17 17:59 00:35 06:35 POC Glucose (mg/dL) 128 H 102 98 03/30/17 11:48 POC Glucose (mg/dL) 149 H Studies: None today Nutrition: Tube feedings Impression: Not ready for removal of ventilatory support. Plan: Will proceed with tracheostomy at this time (time of intubation = 14 days). I have explained this procedure to the family and the patient, and they agree to it.
[2017-03-31] MEDS: ZOSYN 3.375 GM Q8H per EXTENDED INFUSION IVPB SCH ×6 (00:05→20:13)
[2017-03-31] MEDS: Chlorhexidine MOUTHWASH 0.12%* 15 ML UDC TOPICAL SCH ×7 (00:05→23:54)
[2017-03-31] MEDS: Insulin LISPRO* 1 UNITS UNIT SUBCUT SCH ×2 (00:14→05:33)
[2017-03-31] MEDS: Propofol* 100 ML IV SCH ×8 (01:52→23:29)
[2017-03-31 04:46] LABS: Hematocrit 33 % (42-52); Hemoglobin 10.9 g/dl (14.0-18.0); Mean Corpuscular HGB Conc 33 g/dl (31-36); Mean Corpuscular Hemoglobin 35 pg (27-31); Mean Platelet Volume 13 um3 (7.4-10.4); Red Blood Count 3.11 10^6/ul (4.0-5.4); Red Cell Distribution Width 15 % (10.5-15); White Blood Count 20.2 10^3/ul (3.5-10.8)
[2017-03-31 04:48] LABS: Comments Flag Yes; Mean Corpuscular Volume 105 fL (80-94)
[2017-03-31 05:01] LABS: Albumin 2.7 g/dL (3.2-5.2); BUN/Creatinine Ratio 31.2 (8-20); Calcium 8.3 mg/dL (8.6-10.3); EGFR African American 85.5 (>60); EGFR Non-African American 66.5 (>60); Globulin 3.2 g/dL (2-4); Indirect Bilirubin 1.4 mg/dL (0.3-1.0); Potassium 3.6 mmol/L (3.5-5.0); Total Bilirubin 3.4 mg/dL (0.2-1.0); Total Protein 5.9 g/dL (6.4-8.9)
[2017-03-31] MEDS: D5W 1000 ML BAG* 1,000 ML IV SCH (06:48)
[2017-03-31] MEDS: PrednisoLONE LIQ 3 MG/ML* 15 MG/5 ML UDC PO SCH (08:13)
[2017-03-31] MEDS: Multivitamins ADULT w/MIN LIQ* 15 ML UDC G TUBE SCH (08:13)
[2017-03-31] MEDS: Fondaparinux* 2.5 MG/0.5 ML SYRINGE SUBCUT SCH (08:14)
[2017-03-31] MEDS: Lansoprazole susp Kit 3 MG/ML (30 MG = 10 ML) G TUBE SCH (08:14)
[2017-03-31] MEDS: Folic Acid TAB* 1 MG PO SCH (08:14)
[2017-03-31] MEDS: RiFAXimin* 550 MG TAB G TUBE SCH ×2 (08:14→21:04)
[2017-03-31] MEDS: Potassium Chloride LIQUID* 20 MEQ PACKET G TUBE SCH (08:14)
[2017-03-31] MEDS: Thiamine TAB* 100 MG TAB PO SCH (08:14)
[2017-03-31 08:42] LABS: Heparin PF4 Antibody Interp Negative
[2017-03-31 08:54] LABS: Heparin PF4 Ab Reactivity 0.194
[2017-03-31] MEDS: Insulin GLARGINE(*) 1 UNITS UNIT SUBCUT SCH (12:57)
--- NOTE | 2017-03-31 14:29 | PN ---
Critical Care Services: Clinically stable, but still vent dependent. Vital Signs: Temp Pulse Resp BP SpO2 FiO2 99.3 F 90 29 121/62 92 50 Physical Exam: Gen:On propofol sedation Lungs:Scattered rhonchi. No crackles or wheezes Abdomen:Distended Extremities: 2+ edema Fluid Balance (Past 24 Hours): 03/31/17 06:59 Intake Total 3869 Output Total 2500 Balance +1369 Weight 303 lb 9.224 oz Intake: IV Fluids 2772 ABX - ZOSYN 215 D5W 2389 IV fluids & IVPB NS KVO 168 IVPB ABX - ZOSYN Medicated IV 400 CC - Propofol/Diprivan 400 Tube Feeding 287 Tube Feeding Flush Amount 410 Output: Cook 2000 Liquid Stool 500 Tube Feeding Residual 0 Amount Wasted Labs: 03/31/17 03/31/17 04:22 04:22 WBC 20.2 Hgb 10.9 Hct 33 Plt Count 97 Sodium 136 Potassium 3.6 Chloride 106 Carbon Dioxide 24 BUN 39 Creatinine 1.25 Glucose 100 Calcium 8.3 Total Bilirubin 3.40 Direct Bilirubin 2.00 Indirect Bilirubin 1.4 AST 260 ALT 212 Alkaline Phosphatase 79 Total Protein 5.9 Albumin 2.7 Studies: None today Nutrition: Tube feedings Impression: Persistent ventilator dependence Plan: For tracheostomy (at bedside) this afternoon.
[2017-03-31] MEDS ORDERED: Lidocaine 1% INJ* 10 MG/ML 30 ML SDV ONE ×2 (15:11→16:52)
[2017-03-31] MEDS ORDERED: fentaNYL* 50 MCG/ML 5 ML VIAL (250 MCG VIAL) ONE ×2 (15:15→15:50)
[2017-03-31] MEDS ORDERED: fentaNYL* 50 MCG/ML 2 ML VIAL (100 MCG VIAL) IV SLOW PU ONE (16:05)
[2017-03-31] MEDS ORDERED: fentaNYL* 50 MCG/ML 2 ML VIAL (100 MCG VIAL) ONE (17:36)
[2017-03-31] MEDS ORDERED: Cisatracurium* 2 MG/ML MDV 5 ML ONE (18:01)
[2017-03-31] MEDS: KCL 10 MEQ/50 ML IVPREMIX* 10 MEQ/50 ML BAG IV SCH ×2 (20:32→22:33)
[2017-03-31] MEDS ORDERED: Pantoprazole IV* 40 MG IV SCH (21:00)
[2017-04-01] MEDS: fentaNYL* 50 MCG/ML 2 ML VIAL (100 MCG VIAL) IV SLOW PU PRN ×2 (01:48→04:13)
[2017-04-01] MEDS: Propofol* 100 ML IV SCH ×5 (02:03→18:20)
[2017-04-01] MEDS: Chlorhexidine MOUTHWASH 0.12%* 15 ML UDC TOPICAL SCH ×5 (03:56→20:14)
[2017-04-01] MEDS: ZOSYN 3.375 GM Q8H per EXTENDED INFUSION IVPB SCH ×4 (03:57→20:14)
[2017-04-01 04:03] LABS: Hematocrit 33 % (42-52); Hemoglobin 10.9 g/dl (14.0-18.0); Mean Corpuscular HGB Conc 33 g/dl (31-36); Mean Corpuscular Hemoglobin 35 pg (27-31); Mean Platelet Volume 13 um3 (7.4-10.4); Red Blood Count 3.15 10^6/ul (4.0-5.4); Red Cell Distribution Width 15 % (10.5-15); White Blood Count 17.4 10^3/ul (3.5-10.8)
[2017-04-01 04:04] LABS: Comments Flag Yes
[2017-04-01 04:05] LABS: Mean Corpuscular Volume 106 fL (80-94)
--- NOTE | 2017-04-01 08:53 | RAD ---
INDICATION: Tracheostomy placement COMPARISON: Most recent comparison chest x-rays dated March 27, 2017 TECHNIQUE: Single AP portable view of the chest was obtained. FINDINGS: Image quality is compromised due to the relative inferiority of a portable chest x-ray. There has been interval placement of a tracheostomy tube overlying the midline C6 cervical level. A right-sided PICC line is seen with the tip terminating in the superior vena cava. There is cardiomegaly. The lung volumes are low with persistent elevation of the right hemidiaphragm. The pulmonary vasculature is engorged and indistinct. There is right greater than left bibasilar costophrenic angle blunting. IMPRESSION: 1. Interval placement of a tracheostomy tube overlying the midline approximately C6 cervical level. 2. There is been overall worsening aeration of the lungs relative to the most recent March 27, 2017 chest x-ray with findings indicative of cardiogenic pulmonary edema.
[2017-04-01] MEDS: Insulin LISPRO* 1 UNITS UNIT SUBCUT SCH (09:00)
[2017-04-01] MEDS: Thiamine TAB* 100 MG TAB PO SCH (09:00)
[2017-04-01] MEDS: RiFAXimin* 550 MG TAB G TUBE SCH ×2 (09:00→21:49)
--- NOTE | 2017-04-01 09:13 | PN ---
Critical Care Services: Tracheostomy placed yesterday, without complication. Currently sedated on propofol, and appears comfortable. Vital Signs: Temp Pulse Resp BP SpO2 FiO2 98.4 F 76 25 108/60 100 60 Physical Exam: Gen: Unresponsive, but is sedated with propofol. HEENT:No bleeding from trach stoma site. Lungs: occasional; rhonchi. No crackles or wheezes. Abdomen: Distended. Extremities: 2+edema. Fluid Balance (Past 24 Hours): 04/01/17 06:59 Intake Total 2431 Output Total 1750 Balance +681 Weight 290 lb 12oz Intake: IV Fluids 1191 ABX - ZOSYN 203 D5W 832 NS KVO 156 IVPB 252 ABX - ZOSYN 144 NS KVO 108 Medicated IV 988 CC - Propofol/Diprivan 988 Tube Feeding 0 Tube Feeding Flush Amount 0 Output: Cook 1250 Liquid Stool 500 Tube Feeding Residual 0 Amount Wasted Labs: 04/01/17 03:52 WBC 17.4 Hgb 10.9 Hct 33 MCV 106 Plt Count 121 L Studies: CXR: Tube appears properly placed. Possible (mild) pulmonary congestion. Nutrition: None overnight Impression: 1. Satisfactory tracheal tube placement. 2. Leukocytosis improving (although source is unknown - no apparent infection). 3. Has macrocytic anemia despite oral folate supplementation. 4. Ready to try weaning from the ventilator. Plan: 1. Begin attempt to wean from ventilator. 2. Restart tube feedings 3. Attempt diuresis today. 4. Switch to IV folate. Critical Care Time: 40 minutes
[2017-04-01] MEDS ORDERED: Famotidine SUSP* 40 MG/5 ML ORAL.SUSP G TUBE ONE (09:24)
[2017-04-01] MEDS: Fondaparinux* 2.5 MG/0.5 ML SYRINGE SUBCUT SCH (09:36)
[2017-04-01] MEDS ORDERED: Furosemide IV* 10 MG/ML VIAL (40 MG) IV ONE (11:52)
[2017-04-01] MEDS: Folic Acid IV* 1 MG/0.2 ML SYRINGE IV SCH (12:53)
[2017-04-01] MEDS: Insulin GLARGINE(*) 1 UNITS UNIT SUBCUT SCH (15:48)
--- NOTE | 2017-04-01 16:24 | OP ---
DATE OF OPERATION: 03/31/17 - ROOM #ICU-08 DATE OF : 83 SURGEON: Michael Paez MD ANESTHESIOLOGIST: Alisha Almonte MD ANESTHESIA: General PRE-OPERATIVE DIAGNOSIS: Respiratory failure, prolonged endotracheal tube, 2 weeks. POST-OPERATIVE DIAGNOSIS: Respiratory failure, prolonged endotracheal tube, 2 weeks. OPERATIVE PROCEDURE: Tracheostomy with flaps. BRIEF HISTORY: This 32-year-old with significant obesity, cirrhosis, respiratory failure, ICU-admitted patient should have a tracheostomy. DESCRIPTION OF PROCEDURE: The patient was in the operating room, on the operative bed, intubated already. Neck was then prepped and draped in the usual fashion. lateral skin flaps were elevated. Fat was removed. Strap muscles were advanced and closed with the skin flaps. Subsequently, tracheostomy was identified. Incision was made in second ring. A #8 Shiley was placed The Patient was then ventilated through trac tube. The patient was and sent to the ICU on the ventilation with tracheostomy. Estimated blood loss, minimal. [id number] #: [id number] [facility]
[2017-04-02] MEDS: Chlorhexidine MOUTHWASH 0.12%* 15 ML UDC TOPICAL SCH ×7 (00:20→23:54)
[2017-04-02] MEDS: fentaNYL* 50 MCG/ML 2 ML VIAL (100 MCG VIAL) IV SLOW PU PRN ×4 (01:31→22:38)
[2017-04-02] MEDS: Propofol* 100 ML IV SCH ×5 (01:32→23:53)
[2017-04-02] MEDS: ZOSYN 3.375 GM Q8H per EXTENDED INFUSION IVPB SCH ×6 (04:23→12:20)
[2017-04-02 06:50] LABS: Hematocrit 32 % (42-52); Hemoglobin 10.6 g/dl (14.0-18.0); Mean Corpuscular HGB Conc 33 g/dl (31-36); Mean Corpuscular Hemoglobin 35 pg (27-31); Mean Corpuscular Volume 106 fL (80-94); Mean Platelet Volume 12 um3 (7.4-10.4); Red Blood Count 3.05 10^6/ul (4.0-5.4); Red Cell Distribution Width 15 % (10.5-15); White Blood Count 18.9 10^3/ul (3.5-10.8)
[2017-04-02 06:58] LABS: Comments Flag Yes
[2017-04-02 07:02] LABS: Albumin 2.8 g/dL (3.2-5.2); BUN/Creatinine Ratio 35.6 (8-20); Calcium 8.6 mg/dL (8.6-10.3); EGFR African American 78.3 (>60); EGFR Non-African American 60.9 (>60); Globulin 3.2 g/dL (2-4); Potassium 3.4 mmol/L (3.5-5.0); Total Bilirubin 3.6 mg/dL (0.2-1.0)
[2017-04-02] MEDS: Fondaparinux* 2.5 MG/0.5 ML SYRINGE SUBCUT SCH (08:03)
[2017-04-02] MEDS: Folic Acid IV* 1 MG/0.2 ML SYRINGE IV SCH (08:22)
[2017-04-02] MEDS: Insulin LISPRO* 1 UNITS UNIT SUBCUT SCH ×2 (08:33→08:37)
[2017-04-02] MEDS: RiFAXimin* 550 MG TAB G TUBE SCH ×2 (08:36→21:39)
[2017-04-02] MEDS: Thiamine TAB* 100 MG TAB PO SCH (08:36)
[2017-04-02] MEDS: Folic Acid TAB* 1 MG PO SCH (08:36)
[2017-04-02] MEDS ORDERED: Furosemide IV* 10 MG/ML VIAL (40 MG) IV ONE (08:37)
--- NOTE | 2017-04-02 12:15 | PN ---
Critical Care Services: New Problem: Fever (temp = 101.7 at 11:30 AM today). Sputum gram stain from yesterday shows no organisms. Blood and urine cultures pending. PICC line in for about a week. On empiric Rx with PIP/TAZO. Vital Signs: Temp Pulse Resp BP SpO2 FiO2 101.7 F 93 12 135/75 95 45 Physical Exam: Gen:Awake, but responds to verbal commands only occasionally. Lungs:BS distant; scattered rhonchi; no wheezes or crackles. Abdomen: Distended. Nontender. Extremities:No cyanosis. 2+edema. Unable to lift legs to command. Fluid Balance (Past 24 Hours): 04/02/17 06:59 Intake Total 1262 Output Total 3300 Balance -2037 Weight 305 lb 5oz Intake: IV Fluids 563 ABX - ZOSYN 157 D5W NS 221 NS KVO 185 IVPB 73 ABX - ZOSYN NS KVO 73 Medicated IV 626 CC - Propofol/Diprivan 626 Tube Feeding Tube Feeding Flush Amount Output: Cook 2800 Liquid Stool 500 Tube Feeding Residual Amount Wasted Labs: 04/02/17 06:30 WBC 18.9 Hgb 10.6 Plt Count 141 Sodium 137 Potassium 3.4 L Chloride 109 Carbon Dioxide 23 Anion Gap 5 BUN 48 Creatinine 1.35 Glucose 89 Calcium 8.6 Total Bilirubin 3.60 AST 335 ALT 283 Alkaline Phosphatase 84 Total Protein 6.0 L Albumin 2.8 NOTE: Liver enzymes increasing. Studies: None today Nutrition: Tube feedings with Nepro (to be restarted today) Impression: 1. New Fever - No apparent infection, although spontaneous bacterial peritonitis and line sepsis are possibilities. 2. 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 critical illness polyneuropathy/myopathy Plan: 1. I have asked ID service to evaluate fever. Await results of blood & urine cultures. 2. Continue diuresis with furosemide. 3. Will consider nerve conduction studies & EMGs if inability to wean persists. Patient's and father present at the bedside, and informed of current clinical condition. Critical Care Time: 45 minutes (not including discussions with family)
[2017-04-02] MEDS: Insulin GLARGINE(*) 1 UNITS UNIT SUBCUT SCH (12:16)
--- NOTE | 2017-04-02 14:35 | RAD ---
HISTORY: NG tube placement COMPARISONS: April 01, 2017 VIEWS: 1 Limited portable frontal view of the lower chest and upper abdomen at 2:15 PM FINDINGS: A gastric tube is noted. The tip is in the upper abdomen. This is likely prepyloric, though the tip position is indeterminate. IMPRESSION: LINES AND TUBES ABOVE
[2017-04-02] MEDS: cefTRIAXone VIAL(*) 1,000 MG in NS 0.9% 50 ML* 50 ML IVPB SCH (17:10)
[2017-04-03] MEDS: fentaNYL* 50 MCG/ML 2 ML VIAL (100 MCG VIAL) IV SLOW PU PRN ×4 (00:51→21:51)
[2017-04-03] MEDS: Propofol* 100 ML IV SCH ×5 (03:06→21:50)
[2017-04-03] MEDS: Chlorhexidine MOUTHWASH 0.12%* 15 ML UDC TOPICAL SCH ×5 (05:15→20:41)
--- NOTE | 2017-04-03 06:20 | CONS ---
CONSULTATION REPORT: DATE OF CONSULTATION: 04/02/17 REQUESTING PHYSICIAN: Dr. Coffman. CONSULTING SERVICE: Infectious Disease. REASON FOR CONSULTATION: Fever. IMPRESSION: 1. Fever few days ago, treated for aspiration pneumonia with Zosyn that was stopped and then recurrence of fever on the , another episode on and during the day today. He had a tracheostomy, he has not had increased sputum production through the trach tube. Chest x-ray continues to show decreased aeration described as due to cardiogenic edema. He does have mild abdominal distention. He does have psoriasis and then a second rash, which is an erythematous blanching, confluent rash on his back and arms, which could be a drug rash and drug fever due to Zosyn as a consideration. He has had cultures of his blood sent. 2. 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 HIV and hep C were negative. Hep B serology not available. 3. Psoriasis. 4. Oropharyngeal candidiasis. RECOMMENDATIONS: Stop Zosyn, will start ceftriaxone, await his blood cultures. We will add Hep B surface antigen, ventilatory management per Dr. Coffman. HISTORY OF PRESENT ILLNESS: This is a 32-year-old man admitted with alcoholic hepatitis, found to have cirrhosis. He had aspiration pneumonia treated with Zosyn for 6 days. He has had acute respiratory failure and now has had a tracheostomy. He had recurrence of fever over the last 2 to 3 days without change in hemodynamics. He has had persistent leukocytosis, was 18,000 today. Creatinine is 1.3, his bilirubin is decreased. He denies any pain today. He is not having diarrhea per the nurse. PAST MEDICAL HISTORY: 1. Depression. 2. Psoriasis, severe. ALLERGIES: No known drug allergies. MEDICATIONS: 1. Folic acid. 2. Fondaparinux. 3. Glargine. 4. Insulin Lispro. 5. Zosyn 3.375 g every 8 hours by infusion. 6. Propofol infusion. 7. Rifaximin. 8. Thiamine. 9. Fentanyl. SOCIAL HISTORY: Alcohol abuse as described, no injection drugs. FAMILY HISTORY: No recurrent infections. REVIEW OF SYSTEMS: All negative, but limited given his baseline condition. PHYSICAL EXAMINATION: Vital Signs: Temperature 38.7, heart rate 90, respiratory rate 25, blood pressure 133/80, O2 sat 96% with FiO2 of 45%. In general, he is awake, not in distress or diaphoretic. Neurologic, he regards, he answers questions yes or no. Moves all extremities. HEENT: There is no conjunctival hemorrhage. Oropharynx without lesions. Neck is supple, without nuchal rigidity, there is a midline tracheostomy with surrounding erythema. Lymph Nodes: There is no cervical, supraclavicular, inguinal, axillary, or epitrochlear lymphadenopathy. Heart: Regular and tachycardic without murmurs. Lungs: There are decreased breath sounds at the bases and rhonchi bilaterally. Abdomen: Soft, nontender, and nondistended. There are bowel sounds present. Skin: There is erythematous, confluent, blanching rash on the flanks and back. He has erythematous patches with scaly debris on top. He has erythematous macules and pustules on his chest. DIAGNOSTIC STUDIES/LABORATORY DATA: Creatinine 1.3, LT 283, HIV and hepatitis C negative. Please see impressions and recommendations outlined above, which I have discussed with Dr. Coffman. [id number]/[id number] #: [id number] [facility]ets[facility]
[2017-04-03] MEDS: Folic Acid IV* 1 MG/0.2 ML SYRINGE IV SCH (08:27)
[2017-04-03] MEDS: Fondaparinux* 2.5 MG/0.5 ML SYRINGE SUBCUT SCH (08:27)
[2017-04-03] MEDS: RiFAXimin* 550 MG TAB G TUBE SCH ×2 (08:27→20:41)
[2017-04-03] MEDS: Thiamine TAB* 100 MG TAB PO SCH (08:27)
[2017-04-03] MEDS: Insulin LISPRO* 1 UNITS UNIT SUBCUT SCH (08:40)
[2017-04-03 12:32] LABS: Hematocrit 31 % (42-52); Hemoglobin 10.7 g/dl (14.0-18.0); Mean Corpuscular HGB Conc 35 g/dl (31-36); Mean Corpuscular Hemoglobin 37 pg (27-31); Mean Corpuscular Volume 104 fL (80-94); Mean Platelet Volume 12 um3 (7.4-10.4); Red Blood Count 2.95 10^6/ul (4.0-5.4); Red Cell Distribution Width 15 % (10.5-15); White Blood Count 17.7 10^3/ul (3.5-10.8)
[2017-04-03] MEDS ORDERED: fentaNYL* 50 MCG/ML 2 ML VIAL (100 MCG VIAL) ONE ×2 (12:44→13:08)
[2017-04-03 12:48] LABS: ALT 217 U/L (7-52); Albumin 2.7 g/dL (3.2-5.2); Alkaline Phosphatase 99 U/L (34-104); BUN/Creatinine Ratio 35.1 (8-20); Blood Urea Nitrogen 40 mg/dL (6-24); CO2 Carbon Dioxide 23 mmol/L (22-32); Calcium 8.5 mg/dL (8.6-10.3); Chloride 108 mmol/L (101-111); EGFR African American 95.1 (>60); Globulin 3.4 g/dL (2-4); Glucose 117 mg/dL (70-100); Sodium 138 mmol/L (133-145); Total Protein 6.1 g/dL (6.4-8.9)
[2017-04-03 12:49] LABS: Anion Gap 7 mmol/L (2-11)
[2017-04-03] MEDS: Insulin GLARGINE(*) 1 UNITS UNIT SUBCUT SCH (13:25)
[2017-04-03] MEDS ORDERED: Furosemide IV* 10 MG/ML VIAL (40 MG) IV ONE (13:33)
--- NOTE | 2017-04-03 13:41 | PN ---
Critical Care Services: No change in overall clinical condition. Evaluated by ID service yesterday, and is currently on PIP/TAZO and ceftriaxone for presumed aspiration pneumonia. Patient continues to diurese after IV furosemide. Vital Signs: Temp Pulse Resp BP SpO2 FiO2 100.7 F 90 28 135/70 96 45 Physical Exam: Gen:Somnolent but arousable. Is appropriate when awake. Lungs: Occasional rhonchi. No crackles or wheezes. Abdomen: 4+ distended Extremities: 2+ edema Skin: Confluent, maculopapular rash over upper thorax and proximal upper limbs. Fluid Balance (Past 24 Hours): 04/03/17 06:59 Intake Total 1808 Output Total 3300 Balance -1492 Weight 296 lb Intake: IV Fluids 159 ABX - ZOSYN D5W NS 159 NS KVO IVPB 235 ABX - ZOSYN 180 NS 55 NS KVO Medicated IV 465 CC - Propofol/Diprivan 465 Tube Feeding 449 Tube Feeding Flush Amount 500 Output: Cook 2400 Liquid Stool 900 Tube Feeding Residual 0 Amount Wasted Labs: Laboratory Results - last 24 hr 04/03/17 04/03/17 12:15 12:15 WBC 17.7 Hgb 10.7 Hct 31 MCV 104 Plt Count 150 Sodium 138 Potassium TNP Chloride 108 Carbon Dioxide 23 Anion Gap 7 BUN 40 Creatinine 1.14 Glucose 117 Calcium 8.5 L Total Bilirubin 3.00 AST TNP ALT 217 Alkaline Phosphatase 99 Total Protein 6.1 Albumin 2.7 Studies: None today Nutrition: Tube feedings Impression: 1. Source of new fever still unclear, but there is no apparent active infection at this time. Patient may have a drug rash, so drug-induced fever is a possiblity. 2. Patient is still ventilator-dependent, probably due to multiple factors, including paralysed right hemidiaphragm (made worse by hepatomegaly and ascites ) and generalized muscle weakness (critical illness polyneuropathy/myopathy is a consideration here). 3. About 4 liters negative past 2 days (from intentional furosemide diuresis). Plan: 1. Continue diuresis with furosemide. 2. Continue wean trials. 3. Await results of recent cultures. Patient's mother and father present at the bedside, and were informed of the current situation. Critical Care Time: 45 minutes
[2017-04-03] MEDS: cefTRIAXone VIAL(*) 1,000 MG in NS 0.9% 50 ML* 50 ML IVPB SCH (16:52)
[2017-04-04] MEDS: Propofol* 100 ML IV SCH ×3 (00:54→08:17)
[2017-04-04] MEDS: fentaNYL* 50 MCG/ML 2 ML VIAL (100 MCG VIAL) IV SLOW PU PRN ×3 (02:54→23:07)
[2017-04-04] MEDS: Chlorhexidine MOUTHWASH 0.12%* 15 ML UDC TOPICAL SCH ×7 (03:45→23:08)
[2017-04-04 05:37] LABS: Hematocrit 33 % (42-52); Hemoglobin 10.9 g/dl (14.0-18.0); Mean Corpuscular HGB Conc 33 g/dl (31-36); Mean Corpuscular Hemoglobin 35 pg (27-31); Mean Platelet Volume 11 um3 (7.4-10.4); Red Blood Count 3.14 10^6/ul (4.0-5.4); Red Cell Distribution Width 15 % (10.5-15); White Blood Count 16.8 10^3/ul (3.5-10.8)
[2017-04-04 05:46] LABS: Comments Flag Yes; Mean Corpuscular Volume 105 fL (80-94)
[2017-04-04 05:59] LABS: BUN/Creatinine Ratio 37.5 (8-20); Calcium 8.8 mg/dL (8.6-10.3); EGFR African American 105.8 (>60); EGFR Non-African American 82.2 (>60)
[2017-04-04 06:04] LABS: Potassium 3.4 mmol/L (3.5-5.0)
[2017-04-04] MEDS ORDERED: Dexmedetomidine 4 MCG/ML 100 ML DRIP IVPB SCH ×2 (08:30)
[2017-04-04] MEDS ORDERED: Potassium Chloride LIQUID* 20 MEQ PACKET PO ONE (08:30)
[2017-04-04] MEDS ORDERED: Furosemide IV* 10 MG/ML VIAL (40 MG) IV ONE (08:30)
[2017-04-04] MEDS: Fondaparinux* 2.5 MG/0.5 ML SYRINGE SUBCUT SCH (08:46)
[2017-04-04] MEDS: RiFAXimin* 550 MG TAB G TUBE SCH ×2 (08:46→21:16)
[2017-04-04] MEDS: Nystatin SUSPENSION* 100000 UNITS/ML 5 ML UDC SCH ×3 (08:46→20:12)
[2017-04-04] MEDS: Folic Acid IV* 1 MG/0.2 ML SYRINGE IV SCH (08:47)
[2017-04-04] MEDS: Thiamine TAB* 100 MG TAB PO SCH (08:47)
--- NOTE | 2017-04-04 11:05 | PN ---
Critical Care Services: Patient had an uneventful evening. This AM is awake, but responds to verbal commands sporadically. Remains on the ventilator. Secretions minimal. Vital Signs: Temp Pulse Resp BP SpO2 FiO2 99.9 F 85 23 130/71 98 45 Physical Exam: Gen:Awake - up in chair Lungs: scattered rhonchi. No crackles or wheezes Abdomen:Markedly distended. Extremities: 2+edema. Can wiggle toes, but unable to lift legs against gravity. 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+ Fluid Balance (Past 24 Hours): 04/02/17 04/03/17 04/04/17 06:59 06:59 06:59 Intake Total 1262 1808 2246 Output Total 3300 3300 2700 Balance -2037 -1491 -454 Weight 305 lb 296 lb 292 lb Intake: IV Fluids 563 159 227 ABX - ZOSYN 157 NS 221 159 227 NS KVO 185 IVPB 73 235 58 ABX - ZOSYN 180 NS 55 58 NS KVO 73 Medicated IV 626 465 440 CC - Propofol/Diprivan 626 465 440 Tube Feeding 449 920 Tube Feeding Flush Amount 500 601 Output: Cook 2800 2400 2300 Liquid Stool 500 900 400 Tube Feeding Residual 0 0 Amount Wasted Other: Date of Last Bowel 04/04/17 Movement Labs: Laboratory Results - last 24 hr 04/03/17 04/03/17 12:15 12:15 WBC 17.7 Hgb 10.7 Hct 31 MCV 104 Plt Count 150 Sodium 138 Potassium 3.6 Chloride 108 Carbon Dioxide 23 BUN 40 Creatinine 1.14 Glucose 117 Total Bilirubin 3.00 AST 189 ALT 217 Alkaline Phosphatase 99 Ammonia see 04/04 Total Protein 6.1 L Albumin 2.7 04/04/17 04/04/17 05:10 05:10 WBC 16.8 Hgb 10.9 Hct 33 L MCV 105 Plt Count 169 Sodium 145 Potassium 3.4 Chloride 111 Carbon Dioxide 25 Anion Gap 9 BUN 39 H Creatinine 1.04 Glucose 107 H Calcium 8.8 Ammonia 75 Studies: None today Nutrition: Tube feedings Impression: Major problem now is inability to wean - no apparent pathologic lung process, so inability to wean most likely from a combination of problems, including a paralysed right hemidiaphragm (situation made worse by hepatomegaly and ascites) , fluid accumulation, and generalized respiratory muscle weakness. He also has profound weakness in the lower extremities, which may be a sign of critical illness neuromyopathy. Plan: 1. Continue diuresis (with furosemide) and daily wean attempts. Will start spironolactone for long-term fluid management. 2. Can probably antibiotics because no evidence of active infection. 3. I will consult neurology to evaluate for critical illness neuromyopathy (EMG , nerve conductions, etc) 4. Patient's parents present at bedside and informed of the current situation. Critical Care Time: 45 minutes (not including time spent with patient's family)
[2017-04-04] MEDS: Dexmedetomidine 4 MCG/ML 100 ML DRIP IVPB SCH ×6 (13:39→21:12)
[2017-04-04] MEDS: Spironolactone TAB* 25 MG PO SCH (14:08)
[2017-04-05] MEDS: Nystatin SUSPENSION* 100000 UNITS/ML 5 ML UDC SCH ×4 (02:22→20:08)
[2017-04-05] MEDS: fentaNYL* 50 MCG/ML 2 ML VIAL (100 MCG VIAL) IV SLOW PU PRN ×4 (02:38→21:25)
[2017-04-05] MEDS: Chlorhexidine MOUTHWASH 0.12%* 15 ML UDC TOPICAL SCH ×5 (04:23→20:08)
[2017-04-05] MEDS: Dexmedetomidine 4 MCG/ML 100 ML DRIP IVPB SCH ×4 (05:01→15:52)
[2017-04-05 07:13] LABS: Hematocrit 32 % (42-52); Hemoglobin 10.5 g/dl (14.0-18.0); Mean Corpuscular HGB Conc 33 g/dl (31-36); Mean Corpuscular Hemoglobin 35 pg (27-31); Mean Platelet Volume 11 um3 (7.4-10.4); Red Blood Count 3.01 10^6/ul (4.0-5.4); Red Cell Distribution Width 15 % (10.5-15); White Blood Count 13.7 10^3/ul (3.5-10.8)
[2017-04-05 07:17] LABS: Comments Flag Yes
[2017-04-05 07:18] LABS: Mean Corpuscular Volume 106 fL (80-94)
[2017-04-05 07:33] LABS: BUN/Creatinine Ratio 39.4 (8-20); Calcium 8.9 mg/dL (8.6-10.3); EGFR African American 100.2 (>60); EGFR Non-African American 77.9 (>60); Potassium 3.4 mmol/L (3.5-5.0)
[2017-04-05] MEDS: RiFAXimin* 550 MG TAB G TUBE SCH ×2 (08:19→20:49)
[2017-04-05] MEDS: Thiamine TAB* 100 MG TAB PO SCH (08:19)
[2017-04-05] MEDS: Spironolactone TAB* 25 MG PO SCH (08:19)
[2017-04-05] MEDS: Fondaparinux* 2.5 MG/0.5 ML SYRINGE SUBCUT SCH (08:20)
[2017-04-05] MEDS: Folic Acid IV* 1 MG/0.2 ML SYRINGE IV SCH (08:21)
[2017-04-05] MEDS ORDERED: Magnesium Sulfate 2 GM IV* 2 GM/50 ML BAG IVPB ONE (11:00)
--- NOTE | 2017-04-05 11:21 | PN ---
Progress Note - Progress Note Date of Service: 04/05/17 Note: CRITICAL CARE MEDICINE DATE: 04/05/17 TIME: 925 SUBJECTIVE: Patient seen and examined. at bedside. PHYSICAL EXAM: Vital Signs: Reviewed. stable. cpap 15/5 at 35% Neurologic: communicating well. alert. HEENT: mildly icteric; trach in place. Cardiovascular: distant Respiratory: dec bs but able to pull greater then 1.5L . Abdomen: obese, mild distention perhaps. dep edema Extremities: 3+ dep edema; psoriasis stable and questionable evolving drug rash Access: R picc LABS: Reviewed. IMAGING: Reviewed. MEDICATIONS: Reviewed. ASSESSMENT: 32 M with MSOF Acute hepatic encephalopathy, mild degree - improved Acute alcohol withdrawal/delirium tremens - resolved Acute respiratory failure - ongoing. Acute alcoholic hepatitis - improved Acute liver failure - stabilized Coagulopathy - stabilized. Acute renal failure with component of ATN - improved Malnutrition mod degree PLAN: Neurologic: stable. dc precedex. lactulose and rifaximin maintenance. Cardiovascular: perfusing. intravsac vol well. interstitial vol up and see if he can continue to mobilize. Respiratory: trial off to tc. may then still need ppv to prevent atelectasis. may be able to utilzie metaneb if able to stay off vent but want to prevent worsening effusions and atelectasis. lasix/aldactone Gastrointestinal: lfts stable. amm stable. contined maintenance meds. Renal/Metabolic: diuretics. replete k. check mag, phos. time. Infectious Disease: does not require abx Hematology: stable. on arixta prophylaxis. Endocrine: off steroids. Musculoskeletal: oob today. f/u skin needs. pt Psych/Social: palliative support. updated and expressed understanding. Supportive and preventative care as ordered. SUP: ppi VTE prophylaxis: arixtra Cook catheter given critical illness, monitoring needs for accurate assessment of JAVIER and KDIGO criteria for critically ill patients and to avoid potential harms of urinary retention, skin breakdown/ulcers. Disposition: ICU; acuity 2 Code Status: Full Critical Care Time: 30min Pedro Reeder DO
[2017-04-05] MEDS: Potassium Chloride LIQUID* 20 MEQ PACKET G TUBE SCH ×2 (12:02→20:49)
[2017-04-05] MEDS: Furosemide SOL* 10 MG/ML 60 ML BOT G TUBE SCH (12:02)
[2017-04-05] MEDS: Lactulose* 15 ML UDC PO SCH (20:49)
[2017-04-06] MEDS: Chlorhexidine MOUTHWASH 0.12%* 15 ML UDC TOPICAL SCH ×6 (00:16→19:53)
[2017-04-06] MEDS: fentaNYL* 50 MCG/ML 2 ML VIAL (100 MCG VIAL) IV SLOW PU PRN ×3 (00:16→03:37)
[2017-04-06] MEDS: Nystatin SUSPENSION* 100000 UNITS/ML 5 ML UDC SCH ×4 (02:29→19:53)
--- NOTE | 2017-04-06 11:07 | PN ---
Progress Note - Progress Note Date of Service: 04/06/17 Note: CRITICAL CARE MEDICINE DATE: 04/06/17 TIME: 900 SUBJECTIVE: Patient seen and examined. at bedside. PHYSICAL EXAM: Vital Signs: Reviewed. stable. off to tc Neurologic: communicating well. alert. HEENT: mildly icteric; trach in place. Cardiovascular: distant Respiratory: dec bs and mild rhonchi. +secretions. Abdomen: obese, dep edema Extremities: 3+ dep edema; psoriasis stable and questionable evolving drug rash Access: R picc LABS: Reviewed. IMAGING: Reviewed. MEDICATIONS: Reviewed. ASSESSMENT: 32 M with MSOF Acute hepatic encephalopathy, mild degree - improved Acute alcohol withdrawal/delirium tremens - resolved Acute respiratory failure - ongoing. Acute alcoholic hepatitis - improved Acute liver failure - stabilized Coagulopathy - stabilized. Acute renal failure with component of ATN - improved Malnutrition mod degree PLAN: Neurologic: stable. lactulose and rifaximin maintenance. Cardiovascular: perfusing. intravsac vol well. interstitial vol mobilize. Respiratory: trial off to tc daily and tolerating. nocturnal cpap tonight again and then look towards tc nocturnal trail. Gastrointestinal: continued maintenance meds. Renal/Metabolic: stable. kruse out. Infectious Disease: no abx needs Hematology: on arixta prophylaxis. Endocrine: no steroids. Musculoskeletal: oob today. pt. ambulate. Psych/Social: updated and expressed understanding. Supportive and preventative care as ordered. SUP: ppi VTE prophylaxis: arixtra Disposition: ICU; acuity 2 Code Status: Full Critical Care Time: 30min Pedro Reeder DO
--- NOTE | 2017-04-06 14:07 | RAD ---
Indication: Nasogastric tube insertion, tracheostomy tube. Single frontal view of the chest performed at 1312 hours was reviewed. Comparison is made with previous exam dated April 02, 2017. Cardiomegaly is noted. Interstitial prominence consistent with vascular congestion is noted. Tracheostomy tube and central line are in place. NG tube appears to be below the diaphragm. IMPRESSION: CARDIOMEGALY WITH VASCULAR CONGESTION. TRACHEOSTOMY TUBE AND NG TUBE ARE UNCHANGED IN POSITION.
[2017-04-06] MEDS: Furosemide SOL* 10 MG/ML 60 ML BOT G TUBE SCH (15:45)
[2017-04-06] MEDS: Spironolactone TAB* 25 MG PO SCH (15:45)
[2017-04-06] MEDS: Multivitamins ADULT w/MIN LIQ* 15 ML UDC G TUBE SCH (15:46)
[2017-04-06] MEDS: Potassium Chloride LIQUID* 20 MEQ PACKET G TUBE SCH ×2 (15:46→20:01)
[2017-04-06] MEDS: Fondaparinux* 2.5 MG/0.5 ML SYRINGE SUBCUT SCH (15:47)
[2017-04-06] MEDS: Lactulose* 15 ML UDC PO SCH ×2 (15:47→20:01)
[2017-04-06] MEDS: RiFAXimin* 550 MG TAB G TUBE SCH ×2 (15:47→20:01)
[2017-04-07] MEDS: Chlorhexidine MOUTHWASH 0.12%* 15 ML UDC TOPICAL SCH ×6 (00:12→20:20)
[2017-04-07] MEDS: fentaNYL* 50 MCG/ML 2 ML VIAL (100 MCG VIAL) IV SLOW PU PRN ×3 (00:45→22:59)
[2017-04-07] MEDS: Nystatin SUSPENSION* 100000 UNITS/ML 5 ML UDC SCH ×4 (02:46→20:20)
[2017-04-07 05:54] LABS: Albumin 2.9 g/dL (3.2-5.2); BUN/Creatinine Ratio 37.3 (8-20); Calcium 9.2 mg/dL (8.6-10.3); EGFR African American 137.2 (>60); EGFR Non-African American 106.7 (>60); Globulin 3.6 g/dL (2-4); Magnesium 2.1 mg/dL (1.9-2.7); Phosphorus 2.6 mg/dL (2.5-5.0); Potassium 4.1 mmol/L (3.5-5.0); Total Bilirubin 3.2 mg/dL (0.2-1.0); Total Protein 6.5 g/dL (6.4-8.9)
[2017-04-07] MEDS: Multivitamins ADULT w/MIN LIQ* 15 ML UDC G TUBE SCH (08:30)
[2017-04-07] MEDS: Lactulose* 15 ML UDC PO SCH ×2 (08:30→20:20)
[2017-04-07] MEDS: Furosemide SOL* 10 MG/ML 60 ML BOT G TUBE SCH (08:31)
[2017-04-07] MEDS: RiFAXimin* 550 MG TAB G TUBE SCH ×2 (08:31→20:20)
[2017-04-07] MEDS: Fondaparinux* 2.5 MG/0.5 ML SYRINGE SUBCUT SCH (08:31)
[2017-04-07] MEDS: Potassium Chloride LIQUID* 20 MEQ PACKET G TUBE SCH ×2 (08:31→20:20)
[2017-04-07] MEDS: Spironolactone TAB* 25 MG PO SCH (08:32)
[2017-04-07] MEDS ORDERED: Metolazone TAB* 5 MG G TUBE SCH (10:00)
[2017-04-07] MEDS ORDERED: Alteplase (CATHFLO)* 2 MG VIAL IV ONE (10:00)
--- NOTE | 2017-04-07 10:26 | PN ---
Progress Note - Progress Note Date of Service: 04/07/17 Note: CRITICAL CARE MEDICINE DATE: 04/07/17 TIME: 930 SUBJECTIVE: Patient seen and examined. at bedside. PHYSICAL EXAM: Vital Signs: Reviewed. mild temps. stable. tc Neurologic: communicating. alert. HEENT: mildly icteric; trach in place. Cardiovascular: distant Respiratory: dec bs and mild rhonchi persist. +secretions. Abdomen: obese, dep edema Extremities: 2+ dep edema; psoriasis stable Access: R picc LABS: Reviewed. IMAGING: Reviewed. MEDICATIONS: Reviewed. ASSESSMENT: 32 M with MSOF Acute hepatic encephalopathy, mild degree - improving still Acute alcohol withdrawal/delirium tremens - resolved Acute respiratory failure - ongoing, but improved Acute alcoholic hepatitis - resolving Acute liver failure - stable Coagulopathy - stabilized. Acute renal failure with component of ATN - improving still Malnutrition mod degree Deconditioning PLAN: Neurologic: lactulose and rifaximin maintenance as is Cardiovascular: perfusing. mobilize fluid as able. add zarxoyln to mobilize salt. Respiratory: can remain off to TC> as d/w pt, there is still some interstially pulm edema and microatelctasis that he needs to continue being aggressive with and will use metaneb daily and attempt to stay off ppv 24/7. Gastrointestinal: maintenance meds. tf Renal/Metabolic: stable. Infectious Disease: no abx needs Hematology: on arixta prophylaxis. Endocrine: no steroids. glu ok Musculoskeletal: oob contiued and pt f/u. ambulate. Psych/Social: pt and expressed understanding. Supportive and preventative care as ordered. SUP: tf VTE prophylaxis: arixtra Disposition: ICU; acuity 2 Code Status: Full Critical Care Time: 30min FStephania Reeder DO
[2017-04-07] MEDS ORDERED: Albuterol 2.5 MG/3 ML NEB.SOL* (0.083%) INH PRN (13:33)
[2017-04-08] MEDS: Chlorhexidine MOUTHWASH 0.12%* 15 ML UDC TOPICAL SCH ×6 (00:21→20:28)
[2017-04-08] MEDS: Nystatin SUSPENSION* 100000 UNITS/ML 5 ML UDC SCH ×4 (01:50→20:28)
[2017-04-08] MEDS: Lactulose* 15 ML UDC PO SCH ×2 (08:13→20:38)
[2017-04-08] MEDS: Multivitamins ADULT w/MIN LIQ* 15 ML UDC G TUBE SCH (08:13)
[2017-04-08] MEDS: Fondaparinux* 2.5 MG/0.5 ML SYRINGE SUBCUT SCH (08:13)
[2017-04-08] MEDS: Metolazone TAB* 5 MG G TUBE SCH (08:14)
[2017-04-08] MEDS: Spironolactone TAB* 25 MG PO SCH ×2 (08:14→10:06)
[2017-04-08] MEDS: RiFAXimin* 550 MG TAB G TUBE SCH ×2 (08:14→20:38)
[2017-04-08] MEDS ORDERED: Furosemide IV* 10 MG/ML VIAL (40 MG) IV SLOW PU ONE (08:32)
[2017-04-08] MEDS ORDERED: Chlorothiazide IV* 250 MG in NS 0.9% 50 ML* 50 ML IVPB ONE (08:33)
[2017-04-08] MEDS ORDERED: Potassium Chloride LIQUID* 20 MEQ PACKET G TUBE ONE (08:33)
--- NOTE | 2017-04-08 08:46 | PN ---
Progress Note - Progress Note Date of Service: 04/08/17 Note: CRITICAL CARE MEDICINE DATE: 04/08/17 TIME: 810 SUBJECTIVE: Patient seen and examined. PHYSICAL EXAM: Vital Signs: Reviewed. TC overnight Neurologic: communicating HEENT: trach in place. Cardiovascular: distant Respiratory: dec bs very mild rhonchi persist. +secretions. Abdomen: obese, dep edema Extremities: 3+ dep edema; psoriasis stable Access: R picc LABS: Reviewed. IMAGING: Reviewed. MEDICATIONS: Reviewed. ASSESSMENT: 32 M with MSOF Acute hepatic encephalopathy, mild degree - improving still Acute alcohol withdrawal/delirium tremens - resolved Acute respiratory failure - ongoing, but improved Acute alcoholic hepatitis - resolving Acute liver failure - stable Coagulopathy - stabilized. Acute renal failure with component of ATN - improving still Malnutrition mod degree Deconditioning PLAN: Neurologic: lactulose and rifaximin maintenance Cardiovascular: perfusing. mobilize further volume today to help him maintain better. keep zarxoyln. Respiratory: TC 24/7. Metaneb. keep trach as is. May downsize in 48-72hrs as long as he doesn't return to ppv. And then can hopefully decanulate altogether next week. Gastrointestinal: maintenance meds. tf . did not dexter swallow yesterday but continued f/u and will improve in time. Renal/Metabolic: stable. diuretics Infectious Disease: no abx needs Hematology: arixta prophylaxis. Endocrine: glu ok Musculoskeletal: oob and ambulate with assistance. Psych/Social: pt expressed understanding. Supportive and preventative care as ordered. SUP: tf VTE prophylaxis: arixtra Disposition: ICU; acuity 2 Code Status: Full Critical Care Time: 28min Pedro Reeder DO
[2017-04-08] MEDS: Furosemide SOL* 10 MG/ML 60 ML BOT G TUBE SCH ×2 (10:07→20:28)
[2017-04-08] MEDS: Propranolol TAB* 10 MG PO SCH ×2 (10:19→20:38)
[2017-04-08] MEDS: fentaNYL* 50 MCG/ML 2 ML VIAL (100 MCG VIAL) IV SLOW PU PRN ×2 (14:01→21:26)
[2017-04-09] MEDS: Chlorhexidine MOUTHWASH 0.12%* 15 ML UDC TOPICAL SCH ×6 (00:53→20:31)
[2017-04-09] MEDS: Nystatin SUSPENSION* 100000 UNITS/ML 5 ML UDC SCH ×4 (01:57→20:31)
[2017-04-09 06:10] LABS: Hematocrit 33 % (42-52); Hemoglobin 10.8 g/dl (14.0-18.0); Mean Corpuscular HGB Conc 33 g/dl (31-36); Mean Corpuscular Hemoglobin 35 pg (27-31); Mean Platelet Volume 11 um3 (7.4-10.4); Red Blood Count 3.09 10^6/ul (4.0-5.4); Red Cell Distribution Width 15 % (10.5-15); White Blood Count 13.1 10^3/ul (3.5-10.8)
[2017-04-09 06:12] LABS: Comments Flag Yes
[2017-04-09 06:13] LABS: Mean Corpuscular Volume 106 fL (80-94)
[2017-04-09 06:21] LABS: BUN/Creatinine Ratio 25.8 (8-20); Calcium 9.3 mg/dL (8.6-10.3); EGFR African American 120.3 (>60); EGFR Non-African American 93.6 (>60); Magnesium 1.6 mg/dL (1.9-2.7); Phosphorus 2.8 mg/dL (2.5-5.0); Potassium 4.1 mmol/L (3.5-5.0)
[2017-04-09] MEDS: Fondaparinux* 2.5 MG/0.5 ML SYRINGE SUBCUT SCH (08:19)
[2017-04-09] MEDS: Lactulose* 15 ML UDC PO SCH ×2 (08:20→20:32)
[2017-04-09] MEDS: Metolazone TAB* 5 MG G TUBE SCH (08:20)
[2017-04-09] MEDS: Multivitamins ADULT w/MIN LIQ* 15 ML UDC G TUBE SCH (08:20)
[2017-04-09] MEDS: Spironolactone TAB* 25 MG PO SCH (08:21)
[2017-04-09] MEDS: RiFAXimin* 550 MG TAB G TUBE SCH ×2 (08:21→20:32)
[2017-04-09] MEDS: Propranolol TAB* 10 MG PO SCH ×2 (08:21→20:32)
[2017-04-09] MEDS: Furosemide SOL* 10 MG/ML 60 ML BOT G TUBE SCH ×2 (09:45→20:31)
[2017-04-09] MEDS ORDERED: Magnesium Sulfate 2 GM IV* 2 GM/50 ML BAG IVPB ONE (09:58)
--- NOTE | 2017-04-09 10:29 | PN ---
Progress Note - Progress Note Date of Service: 04/09/17 Note: CRITICAL CARE MEDICINE DATE: 04/09/17 TIME: 925 SUBJECTIVE: Patient seen and examined. wifer present PHYSICAL EXAM: Vital Signs: Reviewed. TC and dexter well. Neurologic: communicating HEENT: trach in place. Cardiovascular: distant Respiratory: better bs and inc rhonchi. +secretions. Abdomen: obese, dep edema better Extremities: 2+ dep edema; psoriasis stable Access: midline LABS: Reviewed. IMAGING: Reviewed. MEDICATIONS: Reviewed. ASSESSMENT: 32 M with MSOF Acute hepatic encephalopathy, mild degree - improving still Acute alcohol withdrawal/delirium tremens - resolved Acute respiratory failure - ongoing, but improved Acute alcoholic hepatitis - resolving Acute liver failure - stable Coagulopathy - stabilized. Acute renal failure with component of ATN - improving still Malnutrition mod degree Deconditioning PLAN: Neurologic: lactulose and rifaximin maintenance Cardiovascular: perfusing. mobilize volume as he is. diuretics Respiratory: TC /. Metaneb. downsize tomorrow if tolerating well and then hopefully decanulate next week. Gastrointestinal: tf . f/u swallow wednesday post dec trach size vs barium swallow wednesday Renal/Metabolic: stable. diuretics Infectious Disease: no abx needs Hematology: arixta. Endocrine: stable Musculoskeletal: oob and ambulate with assistance. Psych/Social: pt expressed understanding. Supportive and preventative care as ordered. SUP: tf VTE prophylaxis: arixtra Disposition: ICU; acuity 3 Code Status: Full Critical Care Time: 25min Pedro Reeder DO
[2017-04-10] MEDS: Chlorhexidine MOUTHWASH 0.12%* 15 ML UDC TOPICAL SCH ×6 (01:00→20:48)
[2017-04-10] MEDS: Nystatin SUSPENSION* 100000 UNITS/ML 5 ML UDC SCH ×4 (02:35→20:48)
[2017-04-10] MEDS: Fondaparinux* 2.5 MG/0.5 ML SYRINGE SUBCUT SCH (08:40)
[2017-04-10] MEDS: Lactulose* 15 ML UDC PO SCH ×2 (08:40→20:52)
[2017-04-10] MEDS: Metolazone TAB* 5 MG G TUBE SCH (08:40)
[2017-04-10] MEDS: Propranolol TAB* 10 MG PO SCH ×2 (08:41→20:53)
[2017-04-10] MEDS: Spironolactone TAB* 25 MG PO SCH (08:41)
[2017-04-10] MEDS: Multivitamins ADULT w/MIN LIQ* 15 ML UDC G TUBE SCH (08:41)
[2017-04-10] MEDS: RiFAXimin* 550 MG TAB G TUBE SCH ×2 (08:41→20:53)
[2017-04-10] MEDS: Furosemide SOL* 10 MG/ML 60 ML BOT G TUBE SCH ×2 (09:50→20:52)
--- NOTE | 2017-04-10 10:28 | PN ---
Progress Note - Progress Note Date of Service: 04/10/17 Note: [facility] DATE: 04/10/17 TIME: 935 SUBJECTIVE: Patient seen and examined. PHYSICAL EXAM: Vital Signs: Reviewed. TC and dexter well. Neurologic: communicating HEENT: trach in place. better voice. Cardiovascular: distant Respiratory: better bs again. +secretions. Abdomen: obese, dep edema better Extremities: 2+ dep edema; psoriasis stable Access: midline LABS: Reviewed. IMAGING: Reviewed. MEDICATIONS: Reviewed. ASSESSMENT: 32 M with MSOF Acute hepatic encephalopathy, mild degree - improving Acute alcohol withdrawal/delirium tremens - resolved Acute respiratory failure - ongoing, but improved Acute alcoholic hepatitis - resolving Acute liver failure - stable Coagulopathy - stabilized. Acute renal failure with component of ATN - stable Malnutrition mod degree Deconditioning PLAN: doing well downsize trach to 6.0 cuffless and see if he can tolerate well for 24-48h and then cap. Hopeful for decan next week. Barium swallow and speech f/u wednesday. continued present rx oob. pt. will hopefully be ready for aggressive rehab at end of next week. Supportive and preventative care as ordered. SUP: tf VTE prophylaxis: arixtra Disposition: ICU; acuity 3 Code Status: Full Critical Care Time: 24min FStephania Reeder DO
[2017-04-11] MEDS: Chlorhexidine MOUTHWASH 0.12%* 15 ML UDC TOPICAL SCH ×6 (00:15→21:30)
[2017-04-11] MEDS: Nystatin SUSPENSION* 100000 UNITS/ML 5 ML UDC SCH (03:20)
[2017-04-11] MEDS: Fondaparinux* 2.5 MG/0.5 ML SYRINGE SUBCUT SCH (09:15)
[2017-04-11] MEDS: Lactulose* 15 ML UDC PO SCH (09:15)
[2017-04-11] MEDS: Multivitamins ADULT w/MIN LIQ* 15 ML UDC G TUBE SCH (09:16)
[2017-04-11] MEDS: Spironolactone TAB* 25 MG PO SCH (09:16)
[2017-04-11] MEDS: RiFAXimin* 550 MG TAB G TUBE SCH ×2 (09:16→21:31)
[2017-04-11] MEDS: Propranolol TAB* 10 MG PO SCH ×2 (09:16→21:30)
[2017-04-11] MEDS: Furosemide SOL* 10 MG/ML 60 ML BOT G TUBE SCH ×2 (09:16→21:30)
--- NOTE | 2017-04-11 10:37 | PN ---
Progress Note - Progress Note Date of Service: 04/11/17 Note: CRITICAL CARE MEDICINE DATE: 04/11/17 TIME: 930 SUBJECTIVE: Patient seen and examined. PHYSICAL EXAM: Vital Signs: Reviewed. TC with #6 and dexter quite well. Neurologic: communicating well HEENT: trach in place. better voice again. Cardiovascular: distant Respiratory: better bs. clear Abdomen: obese, dep edema better Extremities: 1+ dep edema; psoriasis stable Access: midline LABS: Reviewed. IMAGING: Reviewed. MEDICATIONS: Reviewed. ASSESSMENT: 32 M with MSOF - improving Acute hepatic encephalopathy, mild degree - improving Acute alcohol withdrawal/delirium tremens - resolved Acute respiratory failure - ongoing, but improved Acute alcoholic hepatitis - resolving Acute liver failure - stable Coagulopathy - stabilized. Acute renal failure with component of ATN - stable Malnutrition mod degree Deconditioning PLAN: doing quite well downsize trach to 6.0 and doing well with cap on. Will look to go 24/ with cap and then can look to decannulate Wednesday or Wednesday. Barium swallow and speech f/u wednesday. Check labs tomorrow oob. pt. aggressive rehab placement anticiapted for end of next week. Supportive and preventative care as ordered. SUP: tf VTE prophylaxis: arixtra Disposition: ICU; acuity 3 Code Status: Full Critical Care Time: 24min Pedro Reeder DO
[2017-04-12] MEDS: Chlorhexidine MOUTHWASH 0.12%* 15 ML UDC TOPICAL SCH ×3 (00:30→07:58)
[2017-04-12 06:19] LABS: Hematocrit 30 % (42-52); Hemoglobin 9.9 g/dl (14.0-18.0); Mean Corpuscular HGB Conc 34 g/dl (31-36); Mean Corpuscular Hemoglobin 35 pg (27-31); Mean Corpuscular Volume 104 fL (80-94); Mean Platelet Volume 12 um3 (7.4-10.4); Red Blood Count 2.84 10^6/ul (4.0-5.4); Red Cell Distribution Width 15 % (10.5-15)
[2017-04-12 06:30] LABS: Albumin 3.1 g/dL (3.2-5.2); BUN/Creatinine Ratio 24.5 (8-20); Calcium 9.1 mg/dL (8.6-10.3); EGFR African American 118.9 (>60); EGFR Non-African American 92.4 (>60); Globulin 3.4 g/dL (2-4); Magnesium 1.4 mg/dL (1.9-2.7); Potassium 3.8 mmol/L (3.5-5.0); Total Bilirubin 3.2 mg/dL (0.2-1.0); Total Protein 6.5 g/dL (6.4-8.9)
[2017-04-12] MEDS: Fondaparinux* 2.5 MG/0.5 ML SYRINGE SUBCUT SCH (08:07)
[2017-04-12] MEDS: Spironolactone TAB* 25 MG PO SCH (08:08)
[2017-04-12] MEDS: RiFAXimin* 550 MG TAB G TUBE SCH (08:08)
[2017-04-12] MEDS: Propranolol TAB* 10 MG PO SCH ×2 (08:08→22:00)
[2017-04-12] MEDS: Furosemide SOL* 10 MG/ML 60 ML BOT G TUBE SCH ×2 (08:08→21:58)
[2017-04-12] MEDS: Multivitamins ADULT w/MIN LIQ* 15 ML UDC G TUBE SCH (08:08)
[2017-04-12] MEDS ORDERED: Lactulose* 15 ML UDC PO SCH (09:00)
--- NOTE | 2017-04-12 10:40 | PN ---
Progress Note - Progress Note Date of Service: 04/12/17 Note: CRITICAL CARE MEDICINE DATE: 04/12/17 TIME: 930 SUBJECTIVE: Patient seen and examined. PHYSICAL EXAM: Vital Signs: Reviewed. Neurologic: communicating well HEENT: trach in place. Cardiovascular: distant S1 S2, reg Respiratory: better bs. clear Abdomen: obese, dep edema better Extremities: 1+ dep edema; psoriasis stable Access: midline LABS: Reviewed. IMAGING: Reviewed. MEDICATIONS: Reviewed. ASSESSMENT: 32 M Acute hepatic encephalopathy, mild degree - improving Acute alcohol withdrawal/delirium tremens - resolved Acute respiratory failure - ongoing, but improved Acute alcoholic hepatitis - resolving Acute liver failure - stable Coagulopathy - stabilized. Acute renal failure with component of ATN - stable Malnutrition mod degree Deconditioning PLAN: doing well unfortunately ngt came out. Barium swallow today. levae without ng for now. NC tonight with cap and look to decannulate tomorrow. Labs ok. prn lactulose. oob. pt. aggressive rehab placement anticiapted for end of this week. Supportive and preventative care as ordered. SUP: tf VTE prophylaxis: arixtra Disposition: ICU; acuity 4 Code Status: Full Critical Care Time: 25min Pedro Reeder DO
[2017-04-12] MEDS ORDERED: Lactulose* 15 ML UDC PO PRN (10:41)
[2017-04-12] MEDS ORDERED: Magnesium Sulf 4 GM/100 ML IV* 4,000 MG/100 ML BAG IVPB ONE (10:41)
--- NOTE | 2017-04-13 08:43 | RAD ---
Indication: Dysphagia. Aspiration. Fluoroscopic and radiographic examination of the oral and frontal phase of deglutition was performed utilizing a variety of contrast materials. 3.9 minutes of fluoroscopy time performed. Please see speech pathology results for further recommendations. IMPRESSION: Fluoroscopic services provided for speech pathology for evaluation of swallowing function.
[2017-04-13] MEDS: Multivitamins ADULT w/MIN LIQ* 15 ML UDC G TUBE SCH (09:00)
[2017-04-13] MEDS: Fondaparinux* 2.5 MG/0.5 ML SYRINGE SUBCUT SCH (09:00)
[2017-04-13] MEDS: Spironolactone TAB* 25 MG PO SCH (09:00)
[2017-04-13] MEDS: Furosemide SOL* 10 MG/ML 60 ML BOT G TUBE SCH ×2 (09:00→19:54)
[2017-04-13] MEDS: Propranolol TAB* 10 MG PO SCH ×2 (09:00→21:08)
--- NOTE | 2017-04-13 10:35 | PN ---
Progress Note - Progress Note Date of Service: 04/13/17 Note: CRITICAL CARE MEDICINE DATE: 04/13/17 TIME: 900 SUBJECTIVE: Patient seen and examined. at bedside. PHYSICAL EXAM: Vital Signs: Reviewed. Neurologic: communicating well. slept HEENT: trach in place, capped. Cardiovascular: distant S1 S2, reg Respiratory: adequate bs. clear Abdomen: obese, dep edema better Extremities: 1+ dep edema; psoriasis stable Access: midline LABS: Reviewed. IMAGING: Reviewed. MEDICATIONS: Reviewed. ASSESSMENT: 32 M Acute hepatic encephalopathy, mild degree - improving Acute alcohol withdrawal/delirium tremens - resolved Acute respiratory failure - ongoing, but improved Acute alcoholic hepatitis - resolving Acute liver failure - stable Coagulopathy - stabilized. Acute renal failure with component of ATN - stable Malnutrition mod degree Deconditioning PLAN: doing well able to take po, which he thinks is going well. decannulate today. dc flexiseal. inc activity. oob. pt. speech f/u but if po intake adequete come tomorrow he could be ready for acute rehab. outpt etoh cessation after Supportive and preventative care as ordered. SUP: po VTE prophylaxis: arixtra Disposition: ICU; acuity 4 Code Status: Full Critical Care Time: 24min FStephania Reeder DO
--- NOTE | 2017-04-13 11:04 | DS ---
CRITICAL CARE MEDICINE DISCHARGE SUMMARY ADMISSION DATE: 03/13/2017 ICU ADMISSION DATE: 03/16/2017 ICU DISCHARGE DATE: 04/14/2017 PRIMARY CARE PROVIDER: Kathy Tovar. REFERRING PHYSICIAN: Kali Magaña. DIAGNOSIS: 1. Multisystem organ failure. 2. Acute alcohol withdrawal and delirum tremens on admission. 3. Acute hepatic encephalopathy on admission. 4. Acute respiratory failure. 5. Acute alcoholic hepatitis. 6. Acute liver failure. 7. Coagulopathy. 8. Acute renal failure with component of acute tubular necrosis. 9. Malnutrition, moderate degree. 10. Status post tracheotomy (03/31/2017-04/13/2017). 11. Dysphasia. 12. Anemia of acute disease. 13. Thrombocytopenia of alcoholic liver disease. 14. Alcoholic liver disease. 15. Severe deconditioning. MEDICATIONS AT DISCHARGE: Albuterol (Ventolin 2.5 Mg/3 Ml Neb.Lucero*) 2.5 mg INH Q4H PRN Fondaparinux (Arixtra*) 2.5 mg SUBCUT DAILY AYE Furosemide (Lasix Lucero*) 40 mg G TUBE DAILY AYE Lactulose (Lactulose*) 15 ml PO DAILY PRN Multivitamins (Theragran W/Minerals Liq*) 15 ml G TUBE DAILY AYE Propranolol HCl (Inderal Tab*) 10 mg PO BID AYE Spironolactone (Aldactone Tab*) 50 mg PO DAILY AYE ALLERGIES: None. HOSPITAL COURSE: 32 year old male with history of alcohol abuse presenting with acute alcohol withdrawal and alcoholic hepatitis on admission. Treated aggressively but condition continued to deteriorate and transfer to the intensive care unit. Multisystem organ failure ensuing with alcoholic hepatitis and worsening renal failure, coagulopathy and high output failure state. Patient required intubation, fluids, and aggressive treatment to save his life. Renal function worsened over a few days and then slow improvement with liver failure also stabilizing. Severe encephalopathy and treatment for delirium tremens. Slow to recovery. Supportive care throughout with consults from gastroenterology (Dr. Flores), nephrology (Dr. Marcum) , palliative care (Dr. Mixon) and even ENT (Dr. Paez) for tracheostomy on 03/31 given patients inability to wean from the vent. Slow improvement after and ultimately remained off ventilation for the last week. Deconditioned and weakness continue and has been working physical therapy. Slowly improving swallow function and encephalopoathy has cleared. Remains with underlying alcoholic liver disease. Decannulated from tracheostomy and has needed low supplemental oxygen to no oxygen now. Continues to advance his care needing aggressive physical therapy and outpatient alcohol cessation. DISPOSITION: [facility]. DIET: Regular, mechanically altered vegetable and fruit puree, honey thickened liquids. Speech follow up. ACTIVITY: Out of bed with assist. CODE STATUS: FULL CODE. SPECIAL INSTRUCTIONS: Would follow up with a CMP in 1 week to ensure renal function, electrolytes and in range and that liver function remains stable. Vasoline gauze to trach stoma site and allow closure. FOLLOW UP: with treating medical service at [facility]. Follow up with alcohol cessation treatment. Follow up with Dr. Flores from GI as outpatient as needed. Follow up with Dr. Cope for lyme disease needs. Pedro Reeder DO
--- NOTE | 2017-04-14 09:58 | PN ---
Progress Note - Progress Note Date of Service: 04/14/17 Note: CRITICAL CARE MEDICINE DATE: 04/14/17 TIME: 920 SUBJECTIVE: Patient seen and examined. Dad at bedside. PHYSICAL EXAM: Vital Signs: Reviewed. Neurologic: communicating well. slept HEENT: trach site covered. Cardiovascular: distant S1 S2, reg Respiratory: good bs. no stridor. clear Abdomen: obese, dep edema better Extremities: dep edema; psoriasis stable LABS: Reviewed. IMAGING: Reviewed. MEDICATIONS: Reviewed. ASSESSMENT: 32 M Acute hepatic encephalopathy, mild degree - improving Acute alcohol withdrawal/delirium tremens - resolved Acute respiratory failure - ongoing, but improved Acute alcoholic hepatitis - resolving Acute liver failure - stable Coagulopathy - stabilized. Acute renal failure with component of ATN - stable Malnutrition mod degree Deconditioning PLAN: doing great. ready for rehab. po intake well and speech can f/u. trach site well. allow clousre. off O2. oob. pt. maintenance rx we discussed his ailments remaining, especially liver and etoh cessation Supportive and preventative care as ordered. SUP: po VTE prophylaxis: arixtra can be off. Disposition: to rehab, acuity 5 Code Status: Full Critical Care Time: 25min Pedro Reeder DO
[2017-04-14] MEDS ORDERED: Multivitamins/Minerals TAB ONE (10:35)
[2017-04-14] MEDS ORDERED: Furosemide TAB* 40 MG ONE (10:35)
[2017-04-14] MEDS: Spironolactone TAB* 25 MG PO SCH (10:40)
[2017-04-14] MEDS: Propranolol TAB* 10 MG PO SCH (10:41)
[2017-04-14 11:13] VITALS: BP 123/66
[2017-04-15] MEDS ORDERED: Furosemide TAB* 40 MG PO SCH (09:00)
[2017-04-15] MEDS ORDERED: Vitamin THERAPEUTIC TAB PO SCH (09:00)
== END 2017-04-14 11:15 | DRG 4 ==
LOC: ED 11:24 → MED 13:13 → ICU 03-16 08:05
PROVIDERS: ADMIT Hospitalist; ATTEND Internal Medicine Critical Care Medicine
PROC: 0W9G3ZZ Drainage of Peritoneal Cavity, Percutaneous Approach (ICD-10-PCS; 2017-03-13)
PROC: 0W9G3ZX Drainage of Peritoneal Cavity, Percutaneous Approach, Diagnostic (ICD-10-PCS; 2017-03-13)
PROC: 0W9G3ZZ Drainage of Peritoneal Cavity, Percutaneous Approach (ICD-10-PCS; 2017-03-14)
PROC: 0BH17EZ Insertion of Endotracheal Airway into Trachea, Via Natural or Artificial Opening (ICD-10-PCS; 2017-03-16)
PROC: 5A1955Z Respiratory Ventilation, Greater than 96 Consecutive Hours (ICD-10-PCS; 2017-03-16)
PROC: 0T9B70Z Drainage of Bladder with Drainage Device, Via Natural or Artificial Opening (ICD-10-PCS; 2017-03-16)
PROC: 0DH67UZ Insertion of Feeding Device into Stomach, Via Natural or Artificial Opening (ICD-10-PCS; 2017-03-16)
PROC: 5A09457 Assistance with Respiratory Ventilation, 24-96 Consecutive Hours, Continuous Positive Airway Pressure (ICD-10-PCS; 2017-03-23)
PROC: 02H633Z Insertion of Infusion Device into Right Atrium, Percutaneous Approach (ICD-10-PCS; 2017-03-23)
PROC: 3E033XZ Introduction of Vasopressor into Peripheral Vein, Percutaneous Approach (ICD-10-PCS; 2017-03-23)
PROC: 4A00X4Z Measurement of Central Nervous Electrical Activity, External Approach (ICD-10-PCS; 2017-03-24)
PROC: 0TPBX0Z Removal of Drainage Device from Bladder, External Approach (ICD-10-PCS; 2017-04-06)
PROC: 0B110F4 Bypass Trachea to Cutaneous with Tracheostomy Device, Open Approach (ICD-10-PCS; principal; 2017-04-07)
DX: K70.11 Alcoholic hepatitis with ascites (principal); N17.0 Acute kidney failure with tubular necrosis; J69.0 Pneumonitis due to inhalation of food and vomit; A41.9 Sepsis, unspecified organism; J90 Pleural effusion, not elsewhere classified; F10.221 Alcohol dependence with intoxication delirium; E44.0 Moderate protein-calorie malnutrition; D68.9 Coagulation defect, unspecified; E87.0 Hyperosmolality and hypernatremia; B37.0 Candidal stomatitis; J96.01 Acute respiratory failure with hypoxia; E87.1 Hypo-osmolality and hyponatremia; F10.231 Alcohol dependence with withdrawal delirium; E87.2 Acidosis; E72.20 Disorder of urea cycle metabolism, unspecified; J98.11 Atelectasis; F32.9 Major depressive disorder, single episode, unspecified; E66.9 Obesity, unspecified; R40.2412 Glasgow coma scale score 13-15, at arrival to emergency department; Y90.8 Blood alcohol level of 240 mg/100 ml or more; L40.9 Psoriasis, unspecified; E87.6 Hypokalemia; K70.40 Alcoholic hepatic failure without coma; R47.02 Dysphasia; D69.6 Thrombocytopenia, unspecified; L82.1 Other seborrheic keratosis; I78.1 Nevus, non-neoplastic; R34 Anuria and oliguria; K70.31 Alcoholic cirrhosis of liver with ascites; R45.1 Restlessness and agitation; E80.6 Other disorders of bilirubin metabolism; I10 Essential (primary) hypertension; E87.8 Other disorders of electrolyte and fluid balance, not elsewhere classified; R19.7 Diarrhea, unspecified; D53.9 Nutritional anemia, unspecified; L27.0 Generalized skin eruption due to drugs and medicaments taken internally; Z80.3 Family history of malignant neoplasm of breast; Z80.8 Family history of malignant neoplasm of other organs or systems; Z68.39 Body mass index [BMI] 39.0-39.9, adult; Z81.1 Family history of alcohol abuse and dependence
CPT/HCPCS: 31622; 36415; 36600; 71010; 71020; 74020; 74230; 76705; 80048; 80053; 80076; 80320; 81003; 81015; 82140; 82272; 82550; 82570; 82803; 83036; 83605; 83735; 83880; 83930; 83986; 84100; 84157; 84300; 84484; 85025; 85027; 85060; 85384; 85610; 85652; 85730; 86022; 86140; 86703; 86803; 87040; 87070; 87077; 87086; 87205; 87493; 89051; 93005; 94002; 94003; 94640; 94667; 94668; 94669; 94760; 95819; A9270-GY; C1751; G0480; J0330; J0360; J0696; J1120; J1644; J1940; J2001; J2060; J2250; J2270; J2543; J2704; J2920; J2930; J2997; J3010; J3480; J7512; P9045; P9047

== ENCOUNTER 2017-04-14 10:09 | Inpatient (IN) | payer BC ==
[2017-04-14] MEDS: Docusate CAP* 100 MG PO SCH (20:13)
[2017-04-14] MEDS: Propranolol TAB* 10 MG PO SCH (20:13)
--- NOTE | 2017-04-14 23:33 | HP ---
INPATIENT REHAB HISTORY AND PHYSICAL: DATE OF ADMISSION: 04/14/17 REASON FOR ADMISSION: Weakness following a prolonged hospital stay. HISTORY OF PRESENT ILLNESS: Shabbir Blankenship is a 32-year-old white male with a known history of alcoholism. He was admitted to the hospital, 03/13/17, with shortness of breath and ascites. He was also noted to have elevated liver function tests. He also was noted to have a coagulopathy. The patient was admitted but rapidly decompensated and had to go to the intensive care unit. He had escalating withdrawal symptoms as well as worsening renal function. He was intubated and he was given propofol as well as lactulose. He was noted to have a rising serum creatinine in the face of diuresis. He eventually had to have a nephrology consult with Dr. Marcum. Dr. Marcum thought he did not meet the diagnostic criteria for hepatorenal syndrome but thought that the actual physiology was probably similar. Prognosis initially thought to be poor. The patient did get IV fluids and aggressive treatment. He did have a slow gradual recovery. He eventually had a tracheostomy placed on 03/31/17 because of an inability to wean from the vent. He had a slow improvement following that and was able to come off the ventilator. As a result of his long time on the ventilator and in the intensive care unit, the patient was felt to be deconditioned and quite weak. In addition he had difficulties with his swallowing function. He is currently on a mechanical soft diet with pureed foods and vegetables and honey thick liquids. He was felt to have Physical Therapy, Occupational Therapy and Speech Therapy needs. He is now being admitted for inpatient rehab so that he might return to independent living. Of note, most recent bilirubin was 3.2, most recent albumin was 3.1, most recent ammonia level 46. His transaminases were still elevated on 04/12/17. PAST MEDICAL HISTORY: Notable for the aforementioned alcoholism and recent complications thereof. He has hepatitis secondary to alcoholism. He also probably has depression. CURRENT MEDICATIONS: Include: 1. Lasix. 2. Multivitamin. 3. Inderal. 4. Spironolactone. ALLERGIES: No known drug allergies. SOCIAL HISTORY: He is , lives with his and 2 small children in a two- story house. Apparently, there is one small step to enter on either level. He is a known alcoholic. He does not smoke. REVIEW OF SYSTEMS: The patient reports no current shortness of breath or chest pain. PHYSICAL EXAMINATION VITAL SIGNS: The patient's temperature is 98.1, blood pressure is 126/73, pulse 87, respirations 22. HEENT: His extraocular movements are intact. Tongue is midline. NECK: Supple. LUNGS: Sounded clear to auscultation bilaterally. HEART: Sounds are regular. S1 and S2 are audible. ABDOMEN: Soft and nontender. EXTREMITIES: Showed trace edema bilaterally. Peripheral pulses are intact. NEUROLOGIC: He is awake, alert, oriented to time, place, and person. Muscle strength is about 4+/5 throughout. FUNCTIONAL EXAM: The patient transfers with min assist. ASSESSMENT: Deconditioning following a long hospitalization for alcohol- induced hepatitis and hepatic encephalopathy. PLAN: We are going to integrate him into comprehensive and therapeutic rehab program with the following goals. 1. Physical Therapy will work with the patient. They are going to work on functional transfer training, ambulation training with a walker progressing to a cane as needed. 2. Occupational Therapy will see the patient, work on his activities of daily living including toileting and toilet transfers. 3. Speech Therapy will see the patient, work on his dysphagia. 4. He was on Arixtra for DVT prophylaxis. We may resume this. 5. Continue gentle diuresis. 6. Follow CMPs periodically. 7. Counseling for alcoholism as necessary. 8. Family training as appropriate. 9. Advanced directives: The patient is a full code. 10. Home with appropriate services. ESTIMATED LENGTH OF STAY: Seventeen days. [id number]/[id number] #: [id number] MTDD
[2017-04-15] MEDS: Docusate CAP* 100 MG PO SCH ×2 (08:17→19:39)
[2017-04-15] MEDS: Propranolol TAB* 10 MG PO SCH ×2 (08:18→21:06)
[2017-04-15] MEDS: Spironolactone TAB* 25 MG PO SCH (08:18)
[2017-04-15] MEDS: Furosemide TAB* 40 MG PO SCH (08:18)
[2017-04-15] MEDS: Vitamin THERAPEUTIC TAB PO SCH (08:18)
[2017-04-15] MEDS: Fondaparinux* 2.5 MG/0.5 ML SYRINGE SUBCUT SCH (08:19)
[2017-04-16 07:12] LABS: Hematocrit 28 % (42-52); Hemoglobin 9.5 g/dl (14.0-18.0); Mean Corpuscular HGB Conc 34 g/dl (31-36); Mean Corpuscular Hemoglobin 35 pg (27-31); Mean Corpuscular Volume 103 fL (80-94); Mean Platelet Volume 12 um3 (7.4-10.4); Red Blood Count 2.72 10^6/ul (4.0-5.4); Red Cell Distribution Width 15 % (10.5-15); White Blood Count 9.4 10^3/ul (3.5-10.8)
[2017-04-16 07:20] LABS: BUN/Creatinine Ratio 12.8 (8-20); Calcium 8.6 mg/dL (8.6-10.3); EGFR African American 147.4 (>60); EGFR Non-African American 114.6 (>60); Globulin 3.2 g/dL (2-4); Potassium 3.5 mmol/L (3.5-5.0); Total Bilirubin 3.1 mg/dL (0.2-1.0); Total Protein 6.2 g/dL (6.4-8.9)
[2017-04-16] MEDS: Propranolol TAB* 10 MG PO SCH ×2 (08:13→21:00)
[2017-04-16] MEDS: Furosemide TAB* 40 MG PO SCH (08:14)
[2017-04-16] MEDS: Spironolactone TAB* 25 MG PO SCH (08:14)
[2017-04-16] MEDS: Fondaparinux* 2.5 MG/0.5 ML SYRINGE SUBCUT SCH (08:14)
[2017-04-16] MEDS: Vitamin THERAPEUTIC TAB PO SCH (08:14)
[2017-04-16] MEDS: Docusate CAP* 100 MG PO SCH ×2 (08:14→19:12)
--- NOTE | 2017-04-16 12:50 | PMRUTEAM ---
PMRU: Goals Current Status: Nursing: Current Status Skin Deviations [Throat] Other Skin Deviations [Generalized] Other Skin Deviations [Coccyx] Other Skin Deviation Description [ trach Throat] Skin Deviation Description [ psoriasis Generalized] Skin Deviation Description [ none noted Coccyx] Physical Therapy: Current Status Bed Mobility Assistance Supervision Transfer Moblility Assistance Contact Guard Assist Transfer/Bed Mobility Rolling Walker Recommended Devices Ambulation Assistance Contact guard 40 feet Ambulation Assistive Devices Rolling Walker Manual Wheelchair Control/ Bilateral UE's Technique Wheelchair Propulsion Ability Standby Assistance Wheelchair Distance (ft) 150 Objective Comments pateint uses BLE/BUE for mobility in W/c Occupational Therapy: Current Status Upper Body Dressing Supervision Lower Body Dressing Min Assist Bathing Contact Guard Assist Toileting Contact Guard Assist Toilet Transfer Min Assist Shower Transfer Contact Guard Assist Eating Independent Instrumental ADL Dependent for IADLs. Rec Therapy: Current Status Summary of Assessment and Pt. was open to conversation. Pt. identified with Clinical Impression leisure activities but states he has not engaged in many of them d/t dedicating time to his family. Pt. spoke in-depth about his alcohol abuse and how many of his interests are tied in with his use . When asked if pt. enjoys his life he responded "not really" but explained that it has been that way for a long time and he is "ok with it". On a scale 1-10 with 1 being no motivation to stay sober and 10 being completely committed to sobriety, pt. rated himself currently at a "7" and states "because I know I have to for my health". Pt. was open to continued leisure visits and further discussions about his constructive and destructive activities in life. Treatment Goals Pt. will engage in leisure activities while on the unit. Treatment Plan Provide RT services and encourage involvement. Provide support as needed. Social Work: Current Status Discharge Plan TBD: either d/c home with family or possibly d/c to in-patient ETOH rehab Potential for Family Training pt's is involved and supportive Anticipated Discharge Home Destination Discharge With to the community either home w/ family or inpatient ETOH rehab Speech: Current Status Assessment The patient demonstrated safe po of mechanical soft solids fruits and vegetables, recommend continue mechanical soft solids INCLUDING fruits and vegetables and continue honey-thick liquid. The patient would benefit from continued skilled [employer] services to improve swallow function and trial advanced solids. Goals: Physical Therapy: Initial Goals Bed Mobility Assistance Independent Transfer Mobility Assistance Independent Transfer/Bed Mobility Rolling Walker Recommended Devices Ambulation Independent Ambulation Recommended Devices Rolling Walker Wheelchair Propulsion Ability Independent Stairs Assistance Independent Stair Recommended Devices One Rail Number of Stairs 12 Physical Therapy: Updated Goals Transfer/Bed Mobility Rolling Walker Recommended Devices Occupational Therapy: Initial Goals Goals to be Completed in (Days 2-3 weeks ) Upper Body Bathing Routine Independent Lower Body Bathing Routine Independent Upper Body Dressing Routine Independent Lower Body Dressing Routine Modified Independent with Toilet Hygeine and Clothing Modified Independent with Management Routine Toilet Transfer Routine Modified Independent with Step-In Shower Transfer Modified Independent with Routine Tub Transfer Routine Modified Independent with Functional Transfers for ADL Modified Independent with Grooming Routine Independent Feeding Routine Independent Speech: Goals Speech Goal 1 Dysphagia Goal 1 Comments LTG: The patient will demonstrate safe po of thin liquid and regular solids or least restrictive diet with no overt s/s of aspiration/penetration per [employer] observation/ nsg report. ST. The patient will demonstrate safe po of trials of mechanical soft fruits and vegetables with no overt s/s of aspiration/penetration over 10 trials . Status: The patient trialed mechanical soft solids including canned peaches, steamed broccoli, cauliflower and carrots x15 with adequate mastication and oral clearance with no overt s/s of aspiration/penetration. Recommend diet upgrade to all mechanical soft solids including fruits and vegetables and continue honey-thick liquid. GOAL MET - Follow up 04/16 - the patient demonstrated safe po of fruit x20 with no overt s/s of aspiration/penetration or oral deficits observed. 2. The patient will complete dysphagia swallowing exercises independently for improved oropharyngeal swallow function. Status: The patient completed Becca, base of tongue, effortful swallow, and hyolaryngeal excursion exercises with min cues for increased accuracy. 3. The patient will demonstrate safe po of trials of regular solids with no overt s/s of aspiration/ penetration over 10 trials. Status: Will trial regular solid tray during noon tra this date. Social Work: Goals Discharge Plan TBD: either d/c home with family or possibly d/c to in-patient ETOH rehab Potential for Family Training pt's is involved and supportive Anticipated Discharge Home Destination Discharge With to the community either home w/ family or inpatient ETOH rehab Care Plan: Care Plan ADL's - Improve/Maintain Start: 04/14/17 15:53 Freq: QSHIFT Status: Active Target: Activity Type Activity Date Activity User E-Sign Co-Sign Detail Recorded Client Recorded Date Recorded By Document 04/15/17 15:19 [id number] 04/15/17 15:20 [id number] 04/15/17 15:19 PMRU Outcome: ADL's/ADL Transfers Orders/Interventions Occupational Therapy Evaluation & Treatment Communication Tool in Patient Room Device Yes: walker, BSC Address Deficits Secondary To: deconditioning Patient to receive OT 5x/wk for 60-120 Therex min/day Self Care Management Group Therapy UE/LE ADL's with Assist Yes ADL Transfers with Assist Yes Toileting: Transfers,Clothing Management Yes ,Hygeine w/Assist Light Kitchen/Laundry w/Assist Yes Progression Toward Outcome/Goals Progressing Outcome/Goals Met Pt. completed stand pivot transfers with CGA and GB. Pt. completed ADL routine with increased independence, and independently donned shoes with long- handled shoe horn. /GI-Improve/Maintain Start: 04/14/17 21:41 Freq: QSHIFT Status: Active Target: Activity Type Activity Date Activity User E-Sign Co-Sign Detail Recorded Client Recorded Date Recorded By Document 04/16/17 09:16 [id number] 04/16/17 09:17 [id number] 04/16/17 09:16 PMRU Outcome: Genitourinary/ Gastrointestinal Genitourinary- Outcome/Goals Maintain/ Achieve Urinary Continence Maintain/ Achieve Adequate Urinary Output Remain Free of Hospital- Acquired UTI Gastrointestinal-Outcome/Goals Maintain/ Achieve Bowel Regularity in Accordance with Pt's Baseline Prevent Constipation Progression Toward Outcome/Goals - Progressing Progression Toward Outcome/Goals - GI Progressing Mobility- Improve/Maintain Start: 04/14/17 17:11 Freq: QSHIFT Status: Active Target: Activity Type Activity Date Activity User E-Sign Co-Sign Detail Recorded Client Recorded Date Recorded By Document 04/15/17 17:30 [id number] 04/16/17 02:22 [id number] 04/15/17 17:30 PMRU Outcome: Mobility Physical Therapy Evaluation and Yes Treatment Activity OOB with Assistance Yes WBAT Yes Device Yes Assistance Yes Patient to be seen 5x/wk for 60-120 min/ Therex day for: Mobility Training Gait Training W/C Mobility Balance Outcome/Goals Maintain/ Achieve Baseline Mobility Status Improve Mobility Status Demonstrates Proper Use of Assistive Devices Free from Complications of Immobility Progression Toward Outcome/Goals Progressing Bed Mobility Yes: independent Transfers Yes: independent Gait x ft Yes: independent with rolling walker 150' Up/Down Stairs Yes: independent up/ down 12 stairs with 1 rail Nutrition/Swallowing- Improve/Maintain Start: 04/14/17 14:45 Freq: QSHIFT Status: Active Target: Activity Type Activity Date Activity User E-Sign Co-Sign Detail Recorded Client Recorded Date Recorded By Document 04/16/17 09:16 [id number] 04/16/17 09:17 04/16/17 09:16 PMRU Outcome: Nutrition/Swallowing Outcome/Goals Demonstrates Adequate Hydration/ Prevents Dehydration Other Outcome/Goals The patient will demonstrate safe po of thin liquid and regular solids or least restrictive diet with no overt s/s of aspiration/ penetration per [employer] observation / nsg report. Progression Toward Outcome/Goals Progressing Outcome/Goals Met Comment Honey-thick liquid and upgrade to all mechanical ground solids including fruits and vegetables with extra sauces and gravies. Respiratory - Improve/Maintain Start: 04/14/17 21:42 Freq: QSHIFT Status: Active Target: Activity Type Activity Date Activity User E-Sign Co-Sign Detail Recorded Client Recorded Date Recorded By Document 04/16/17 09:16 [id number] 04/16/17 09:17 04/16/17 09:16 PMRU Outcome: Respiratory Does Patient Have a Trach No Outcome/Goals Maintain/ Improve O2 Sat per MD Order Maintain/ Improve Activity Tolerance Progression Toward Outcome/Goals Progressing Skin- Improve/Maintain Start: 04/14/17 21:41 Freq: QSHIFT Status: Active Target: Activity Type Activity Date Activity User E-Sign Co-Sign Detail Recorded Client Recorded Date Recorded By Document 04/16/17 09:16 [id number] 04/16/17 09:17 04/16/17 09:16 PMRU Outcome: Skin Skin Risk Level Medium Outcome/Goals Maintain/ Improve Skin Intergrity Progression Toward Outcome/Goals Progressing Medicine Note: Length of Stay: 3 weeks Anticipated Discharge Destination: Home Tentative Discharge Date: 05/06/17 Discharged to: Home
[2017-04-17] MEDS: Docusate CAP* 100 MG PO SCH ×2 (08:05→21:51)
[2017-04-17] MEDS: Furosemide TAB* 40 MG PO SCH (08:06)
[2017-04-17] MEDS: Spironolactone TAB* 25 MG PO SCH (08:06)
[2017-04-17] MEDS: Propranolol TAB* 10 MG PO SCH ×2 (08:06→21:51)
[2017-04-17] MEDS: Vitamin THERAPEUTIC TAB PO SCH (08:06)
[2017-04-17] MEDS: Fondaparinux* 2.5 MG/0.5 ML SYRINGE SUBCUT SCH (08:07)
[2017-04-18] MEDS: Vitamin THERAPEUTIC TAB PO SCH (08:05)
[2017-04-18] MEDS: Furosemide TAB* 40 MG PO SCH (08:05)
[2017-04-18] MEDS: Propranolol TAB* 10 MG PO SCH ×2 (08:05→21:24)
[2017-04-18] MEDS: Docusate CAP* 100 MG PO SCH ×2 (08:06→21:24)
[2017-04-18] MEDS: Spironolactone TAB* 25 MG PO SCH (08:06)
[2017-04-18] MEDS: Fondaparinux* 2.5 MG/0.5 ML SYRINGE SUBCUT SCH (08:06)
--- NOTE | 2017-04-18 22:18 | CONS ---
PSYCHIATRIC CONSULTATION REPORT: DATE OF CONSULT: 04/18/17 ATTENDING PHYSICIAN: Dr. Denny Rivas CONSULTING PHYSICIAN: Dr. Mert Tobar REASON FOR CONSULT: Depression. SUBJECTIVE HISTORY: Mr. Dean is a 32-year-old white male with a history of chronic alcoholism, who was just admitted to the inpatient rehabilitation unit following a 1-month admission on the medical service secondary to alcohol withdrawal, ascites, and renal failure, who is now receiving treatment for physical deconditioning and who requests a meeting with the psychiatrist secondary to depression. When I meet with him he actually denies depressed mood stating that while he has been in the hospital, his mood has been fairly euthymic. Most of his psychiatric concerns are somewhat diffuse and what he states he is really looking for is "a plan forward." Specifically he appears to want to receive followup treatment by a therapist in the community. He states that he is aware that he was near recently as a result of his drinking habits and he feels that he would benefit from having someone to help him process this as well as to talk to about his occasional dysthymic and anxious mood. The patient indicates that he has been a chronic drinker since high school with his last alcoholic beverage being on 03/13/17 prior to his medical admission. He spent 3-1/2 weeks on a ventilator and I see that he has a bandage from a tracheostomy that was closed earlier this past week. The patient seems to have fairly good insight into his drinking at this point telling me point blank that he will if he ever relapses on alcohol. He has fairly vague psychiatric complaints at this time, indicating that he has social anxiety and this has prevented him from taking advantage of AA groups in the community in the past. He also indicates that he is a chronic worrier, tending to dwell on things and having difficulty taking action. He also states that there are times when his mood is dysphoric and that he seems to be in a malaise. I did screen him for neurovegetative symptoms of depression and he did indicate that he has had sleep disturbance and poor energy, which are likely confounded by his medical situation. He also indicates some feelings of guilt for putting his family through this episode with his health. Other than that, he denies anhedonia, current concentration or appetite problems, psychomotor retardation or suicidal thoughts. He has no history of violence or homicidality, nor manic or psychotic phenomena. PAST PSYCHIATRIC HISTORY: The patient indicates that in 2013 while he was receiving simultaneous substance abuse treatment, he was also seeing a therapist at the [facility]. The therapist's name was Keshav and the patient qualified for these services since his is employed by [employer]. After 12 sessions, however, he ran out of this benefit and never accepted the referral to community care. Thereafter in the spring, he saw his primary care provider, Dr. Kathy Tovar, who started him on Prozac and Ativan as he quit drinking for close to a month while he was receiving treatment for Lyme's disease. He indicates that at one point she increased his Prozac dose from 20 mg to 40 mg, but that he had a negative reaction in that the medicine made him feel "dark." He indicates at the same time he was taking Campral to reduce alcohol cravings. Prior to this, he had received a diagnosis of ADHD by his former primary care doctor, Dr. Alden Hernandez, and had been prescribed Adderall, which he says was helpful but that he stopped taking because he was drinking too much. SUBSTANCE ABUSE HISTORY: The patient indicates that he started drinking alcohol in high school. His longest sobriety was approximately 6 months in 2013 when he was receiving outpatient treatment through [facility]. His consumption pattern tends to vary, but on the low end he can drink between 2 to 3 drinks in the evenings, but a more consistent recent tendency is to drink 1 drink per hour throughout the day. He drinks beer exclusively and does not imbibe in wine or spirits. He does have significant withdrawal when stopping drinking, including symptoms of shakiness, hypertension, and headaches. He denies any DTs or history of seizures. The patient denies abuse of tobacco or illicit drugs. He has never been in an inpatient rehab setting. PAST MEDICAL HISTORY: Significant for kidney and liver failure as well as ascites recently. He also had Lyme disease in 2016 and a fractured left leg in 2009. FAMILY HISTORY: Significant for alcoholism in both of his maternal and paternal grandparents. SOCIAL HISTORY: The patient was born and raised in [place] where he graduated high school. He has no college history. His parents are still together and he has 3 sisters, being the 3rd out of 4 total siblings. He has been for the past 5 years and he and his share 2 children, including a 5-year-old son and a 17- month-old daughter. 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 He is neither spiritual nor baptism. He has no history of service and no significant legal history. He denies every having been arrested for DWI. MENTAL STATUS EXAM: The patient is an overweight young white male who appears to be somewhat older than his stated age. He is hirsute with long hair and a long spencer and I see evidence of the tracheostomy in that his neck is bandaged. He is moderately groomed wearing a blue flannel shirt, sitting upright in bed , makes good eye contact. He is calm and cooperative. Mood appears to be euthymic with a full to slightly constricted affect. Thought process is linear and goal directed. Thought content is significant for his feelings of shame for what he has put his family through with his drinking. He denies suicidal or homicidal ideations. He denies auditory or visual hallucinations. Insight and judgment appear to be fair given his willingness to follow up with both inpatient and outpatient treatments. Cognitively, he is awake and alert with what would appear to be an average intellect. DIAGNOSES: [place] I: Alcohol use disorder, ADHD by history, rule out social anxiety disorder , rule out dysthymic disorder. [place] II: Deferred. [place] III: Deconditioning, alcohol-induced hepatitis and hepatic encephalopathy , recent renal failure, history of Lyme disease, history of fractured left leg in 2010. Lyme disease in 2017. ASSESSMENT: The patient is a 32-year-old white male with a history of chronic alcohol use disorder, who has been admitted to the physical rehabilitation unit for deconditioning following 3-1/2 weeks on a ventilator, who now presents with concerns over his anxiety and depression and seeking referral to outpatient services. The patient's anxiety and depression are somewhat obscured in terms of coming to a diagnosis. This is secondary to the comorbid effects of his substance abuse and recent medical health problems. RECOMMENDATIONS: I do not see any clear benefit to psychiatric medications at this time. Rather, I would recommend that he be treated more conservatively with outpatient psychotherapy. The patient can be referred by social work services either to [facility] versus [facility]. Once his substance abuse and medical issues are better resolved , I think there will be a clearer picture in terms of what primary psychiatric illnesses he may actually have, if any. Psychiatry will continue to follow this patient for the duration of his rehabilitation and can be contacted at any point by the primary team with any concerns. Thank you for the very interesting consult. [id number]/SHEYLA #: [id number] PHILLIP
[2017-04-19] MEDS: Spironolactone TAB* 25 MG PO SCH (07:37)
[2017-04-19] MEDS: Docusate CAP* 100 MG PO SCH ×2 (07:37→19:49)
[2017-04-19] MEDS: Fondaparinux* 2.5 MG/0.5 ML SYRINGE SUBCUT SCH (07:38)
[2017-04-19] MEDS: Propranolol TAB* 10 MG PO SCH ×2 (07:38→21:31)
[2017-04-19] MEDS: Furosemide TAB* 40 MG PO SCH (07:38)
[2017-04-19] MEDS: Vitamin THERAPEUTIC TAB PO SCH (07:38)
[2017-04-19] MEDS ORDERED: Loperamide CAP* 2 MG PO ONE (10:00)
--- NOTE | 2017-04-19 14:24 | RAD ---
INDICATION: Silent aspiration. COMPARISON: April 12, 2017 video swallowing function exam. TECHNIQUE: Videofluoroscopy swallowing function exam performed in conjunction with speech pathology. Patient seated in a Hausted chair and viewed in the lateral plane. The patient swallowed various consistencies of liquids and solid foodstuff coated with barium. 1.2 minutes fluoroscopy. FINDINGS: Normal deglutition of various consistency liquids and solids. No laryngeal penetration or aspiration observed. IMPRESSION: Normal swallowing function exam with liquids and solids. Please refer to speech pathology report for further assessment and recommendations. CPT II: CPT II Codes: 6045F
[2017-04-19] MEDS ORDERED: Loperamide CAP* 2 MG PO PRN (19:35)
[2017-04-20] MEDS: Furosemide TAB* 40 MG PO SCH (08:09)
[2017-04-20] MEDS: Spironolactone TAB* 25 MG PO SCH (08:09)
[2017-04-20] MEDS: Vitamin THERAPEUTIC TAB PO SCH (08:09)
[2017-04-20] MEDS: Propranolol TAB* 10 MG PO SCH ×2 (08:09→20:38)
[2017-04-20] MEDS: Docusate CAP* 100 MG PO SCH ×2 (08:10→20:37)
[2017-04-20] MEDS: Fondaparinux* 2.5 MG/0.5 ML SYRINGE SUBCUT SCH (08:10)
[2017-04-20 10:04] LABS: Albumin 3.2 g/dL (3.2-5.2); Direct Bilirubin 1.1 mg/dL (0.03-0.18); Globulin 3.4 g/dL (2-4); Indirect Bilirubin 1.9 mg/dL (0.3-1.0); Total Protein 6.6 g/dL (6.4-8.9)
--- NOTE | 2017-04-20 12:51 | PMRUTEAM ---
PMRU: Goals Current Status: Nursing: Current Status Skin Deviations [Throat] Incision Skin Deviations [Generalized] Other Skin Deviations [Coccyx] Skin Tear Skin Deviation Description [ small amount green drainage Throat] Skin Deviation Description [ psoriasis Generalized] Skin Deviation Description [ healed Coccyx] Bladder Current Status pt stand pivates to toilet Bowel Current Status immodium q6h Nutrition Current Status adequate Medication Current Status hole in yogurt or apple sauce Physical Therapy: Current Status Bed Mobility Assistance Supervision Transfer Moblility Assistance Supervision Transfer/Bed Mobility Rolling Walker Recommended Devices Ambulation Assistance Supervision,Contact Guard Assist Ambulation Assistive Devices Rolling Walker Number of Feet Patient 150 Ambulated Stairs Assistance Independent,Contact Guard Assist Stairs Recommended Devices Two Rails Number of Stairs 5 Manual Wheelchair Control/ Bilateral UE's Technique Wheelchair Propulsion Ability Standby Assistance Wheelchair Distance (ft) 200 Objective Comments Pt tired today and was fatiging by the end of the session Occupational Therapy: Current Status Upper Body Dressing Supervision Lower Body Dressing Min Assist Bathing Supervision Toileting Supervision Toilet Transfer Supervision Shower Transfer Supervision Eating Independent Instrumental ADL Dependent for IADLs. Rec Therapy: Current Status Summary of Assessment and Pt. is very involved in leisure sessions and is Clinical Impression interested in continuing regular visits with structure and discussions that target substance abuse. Pt. presents as dysphoric and blunted in conversation but brightens at times. Treatment Goals Pt. will engage in leisure sessions 2-3 times per week. Pt. will engage in leisure activites with visitors and independently. Treatment Plan Con't to meet with pt. regularly for leisure sessions. Encourage involvement in RT groups. Social Work: Current Status Discharge Plan TBD: either d/c home with family or possibly d/c to in-patient ETOH rehab Potential for Family Training pt's is involved and supportive Anticipated Discharge Home Destination Discharge With to the community either home w/ family or inpatient ETOH rehab Nutrition: Current Status Monitoring Pt admitted to PMRU s/p extended stay in ICU intubated much of that time; s/p trach placement. Pt extubated and started on mech ground texture with pureed fruits/vegs, honey-thick liquids. Pt has been able to gradually upgrade diet to now regular texture. Remains on honey-thick liquids. Pt with liquid stools secondary to daily lactulose tx in ICU; lactulose now ordered prn, so not receiving daily. Stools appear to be firming up - will follow bowel pattern. Pt pleasant; speaks in raspy voice d/t long period of extubation. Pt reports good appetite; is finding it hard to keep up with fluid requirements given honey-thick liquids. Provided encouragement. Pt NOT vegetarian , but does prefer to choose from vegetarian menu sometimes. Pt has vegetarian menu in room for reference. Pt reports that he has developed gout; discussed some foods high in purines to avoid, and will provide a list later today. Reinforced fluid intake in setting of gout. Also suggested low sodium diet given liver dysfunction r/t EtOH use. Pt amenable, but declined formal change to diet order, stating he would not use salt. Declined Mrs Dash seasoning. Recommend thiamine/folic acid supplementation given hx EtOH abuse. Speech: Current Status Assessment The patient demonstrated safe po of regular solids and continue honey-thick liquid. The patient would benefit from continued skilled CONSUMER MARKETING ANALYST services to improve swallow function and repeat VFSS scheduled tenatively for Wednesday at 1230 per MD order. Spoke with MD who was in agreement and stated he would order VFSS. Goals: Physical Therapy: Initial Goals Bed Mobility Assistance Independent Transfer Mobility Assistance Independent Transfer/Bed Mobility Rolling Walker Recommended Devices Ambulation Independent Ambulation Recommended Devices Rolling Walker Wheelchair Propulsion Ability Independent Stairs Assistance Independent Stair Recommended Devices One Rail Number of Stairs 12 Physical Therapy: Updated Goals Bed Mobility Assistance Independent Transfer Mobility Assistance Independent Transfer/Bed Mobility Rolling Walker Recommended Devices Ambulation Assistance Independent Ambulation Assistive Devices Rolling Walker Ambulation Distance (ft) 150' Stairs Assistance Independent Stairs Recommended Devices One Rail,Two Rails Number of Stairs 12 Home Exercise Program Independent Assistance Occupational Therapy: Initial Goals Goals to be Completed in (Days 2-3 weeks ) Upper Body Bathing Routine Independent Lower Body Bathing Routine Independent Upper Body Dressing Routine Independent Lower Body Dressing Routine Modified Independent with Toilet Hygeine and Clothing Modified Independent with Management Routine Toilet Transfer Routine Modified Independent with Step-In Shower Transfer Modified Independent with Routine Tub Transfer Routine Modified Independent with Functional Transfers for ADL Modified Independent with Grooming Routine Independent Feeding Routine Independent Nutrition: Goals Intervention Goals 1. Pt will tolerate regular texture diet and thickened liquids without difficulty chewing/ swallowing or s/sx aspiration 2. Intake will be adequate to promote strengthening & conditioning post extubation 3. Pt will establish regular bowel pattern without diarrhea 4. LFTs, renal labs will remain stable/within acceptable values Speech: Goals Speech Goal 1 Dysphagia Goal 1 Comments LTG: The patient will demonstrate safe po of thin liquid and regular solids or least restrictive diet with no overt s/s of aspiration/penetration per CONSUMER MARKETING ANALYST observation/ nsg report. Status: VFSS completed. Recommend thin liquid and regular solids. No oropharyngeal dysphagia noted. ST. The patient will demonstrate safe po of trials of mechanical soft fruits and vegetables with no overt s/s of aspiration/penetration over 10 trials . Status: The patient trialed mechanical soft solids including canned peaches, steamed broccoli, cauliflower and carrots x15 with adequate mastication and oral clearance with no overt s/s of aspiration/penetration. Recommend diet upgrade to all mechanical soft solids including fruits and vegetables and continue honey-thick liquid. GOAL MET - Follow up 04/16 - the patient demonstrated safe po of fruit x20 with no overt s/s of aspiration/penetration or oral deficits observed. 2. The patient will complete dysphagia swallowing exercises independently for improved oropharyngeal swallow function. Status from am session: The patient completed Becca, base of tongue, effortful swallow, and hyolaryngeal excursion exercises with min cues for increased accuracy. 3. The patient will demonstrate safe po of trials of regular solids with no overt s/s of aspiration/ penetration over 10 trials. Status: The patient demosntrated safe po of regular solids with noon tray x20 with mildly prolonged, however adequate mastication with no overt s/s of aspiration/penetration. Recommend diet upgrade to regular solids per MD orders. Social Work: Goals Discharge Plan TBD: either d/c home with family or possibly d/c to in-patient ETOH rehab Potential for Family Training pt's is involved and supportive Anticipated Discharge Home Destination Discharge With to the community either home w/ family or inpatient ETOH rehab Care Plan: Care Plan ADL's - Improve/Maintain Start: 04/14/17 15:53 Freq: QSHIFT Status: Active Target: Activity Type Activity Date Activity User E-Sign Co-Sign Detail Recorded Client Recorded Date Recorded By Document 04/19/17 14:39 [id number] 04/19/17 14:40 [id number] 04/19/17 14:39 PMRU Outcome: ADL's/ADL Transfers Orders/Interventions Occupational Therapy Evaluation & Treatment Communication Tool in Patient Room Device Yes: walker, BSC Address Deficits Secondary To: deconditioning Patient to receive OT 5x/wk for 60-120 Therex min/day Self Care Management Group Therapy UE/LE ADL's with Assist Yes ADL Transfers with Assist Yes Toileting: Transfers,Clothing Management Yes ,Hygeine w/Assist Light Kitchen/Laundry w/Assist Yes Progression Toward Outcome/Goals Progressing Outcome/Goals Met Pt. able to complete lower body dressing with S, and completed transfers steadily with S . Pt. demonstrated increased tolerance for arm exercise routine, with less frequent rest breaks. Coping/Psych-Improve/Maintain Start: 04/19/17 22:15 Freq: QSHIFT Status: Active Target: Activity Type Activity Date Activity User E-Sign Co-Sign Detail Recorded Client Recorded Date Recorded By Document 04/20/17 09:04 [id number] 04/20/17 09:05 [id number] 04/20/17 09:04 PMRU Outcome: Coping/Psychosocial Coping Outcome/Goals Verbalization of Acceptance of Rehab Admit Verbalization of Sense of Control Over Health Status Utilization of Appropriate Problem Solving Techniques Willingness to Participate in Treatment Plan and Basic Needs Utilization of Available Support Systems Psychosocial Outcome/Goals Maintain/ Improve Emotional Health Demonstrates Knowledge of Healthy Coping Mechanisms Available Cooperate/ Participate in Plan Progression Toward Outcome/Goals - Progressing Coping Progression Toward Outcome/Goals - Progressing Psychosocial /GI-Improve/Maintain Start: 04/14/17 21:41 Freq: QSHIFT Status: Active Target: Activity Type Activity Date Activity User E-Sign Co-Sign Detail Recorded Client Recorded Date Recorded By Document 04/20/17 09:04 [id number] 04/20/17 09:05 [id number] 04/20/17 09:04 PMRU Outcome: Genitourinary/ Gastrointestinal Genitourinary- Outcome/Goals Maintain/ Achieve Urinary Continence Maintain/ Achieve Adequate Urinary Output Remain Free of Hospital- Acquired UTI Gastrointestinal-Outcome/Goals Maintain/ Achieve Bowel Regularity in Accordance with Pt's Baseline Prevent Constipation Progression Toward Outcome/Goals - Progressing Progression Toward Outcome/Goals - GI Progressing Mobility- Improve/Maintain Start: 04/14/17 17:11 Freq: QSHIFT Status: Active Target: Activity Type Activity Date Activity User E-Sign Co-Sign Detail Recorded Client Recorded Date Recorded By Document 04/19/17 12:21 [id number] 04/19/17 12:21 [id number] 04/19/17 12:21 PMRU Outcome: Mobility Physical Therapy Evaluation and Yes Treatment Activity OOB with Assistance Yes WBAT Yes Device Yes Assistance Yes Patient to be seen 5x/wk for 60-120 min/ Therex day for: Mobility Training Gait Training W/C Mobility Balance Outcome/Goals Maintain/ Achieve Baseline Mobility Status Improve Mobility Status Demonstrates Proper Use of Assistive Devices Free from Complications of Immobility Progression Toward Outcome/Goals Progressing Bed Mobility Yes: independent Transfers Yes: independent Gait x ft Yes: independent with rolling walker 150' Up/Down Stairs Yes: independent up/ down 12 stairs with 1 rail Nutrition/Swallowing- Improve/Maintain Start: 04/14/17 14:45 Freq: QSHIFT Status: Active Target: Activity Type Activity Date Activity User E-Sign Co-Sign Detail Recorded Client Recorded Date Recorded By Document 04/20/17 09:04 [id number] 04/20/17 09:05 [id number] 04/20/17 09:04 PMRU Outcome: Nutrition/Swallowing Outcome/Goals Demonstrates Adequate Hydration/ Prevents Dehydration Other Outcome/Goals The patient will demonstrate safe po of thin liquid and regular solids or least restrictive diet with no overt s/s of aspiration/ penetration per CONSUMER MARKETING ANALYST observation / nsg report. Progression Toward Outcome/Goals Progressing Outcome/Goals Met Comment VFSS completed. Recommend thin liquid and regular solids. No further skilled CONSUMER MARKETING ANALYST services warranted at this time as no oropharyngeal dysphagia observed. Respiratory - Improve/Maintain Start: 04/14/17 21:42 Freq: QSHIFT Status: Active Target: Activity Type Activity Date Activity User E-Sign Co-Sign Detail Recorded Client Recorded Date Recorded By Document 04/20/17 09:04 [id number] 04/20/17 09:05 [id number] 04/20/17 09:04 PMRU Outcome: Respiratory Does Patient Have a Trach No Outcome/Goals Maintain/ Improve O2 Sat per MD Order Maintain/ Improve Activity Tolerance Progression Toward Outcome/Goals Progressing Skin- Improve/Maintain Start: 04/14/17 21:41 Freq: QSHIFT Status: Active Target: Activity Type Activity Date Activity User E-Sign Co-Sign Detail Recorded Client Recorded Date Recorded By Document 04/20/17 09:04 [id number] 04/20/17 09:05 [id number] 04/20/17 09:04 PMRU Outcome: Skin Skin Risk Level Medium Skin Orders Air Mattress Turn/Position q2hr While in Bed Outcome/Goals Maintain/ Improve Skin Intergrity Progression Toward Outcome/Goals Progressing Medicine Note: Length of Stay: 2 1/2 weeks Anticipated Discharge Destination: Home Tentative Discharge Date: 05/06/17 Discharged to: Home
[2017-04-21] MEDS: Vitamin THERAPEUTIC TAB PO SCH (08:13)
[2017-04-21] MEDS: Docusate CAP* 100 MG PO SCH ×2 (08:13→21:15)
[2017-04-21] MEDS: Spironolactone TAB* 25 MG PO SCH (08:14)
[2017-04-21] MEDS: Fondaparinux* 2.5 MG/0.5 ML SYRINGE SUBCUT SCH (08:14)
[2017-04-21] MEDS: Furosemide TAB* 40 MG PO SCH (08:14)
[2017-04-21] MEDS: Propranolol TAB* 10 MG PO SCH ×2 (08:14→21:16)
--- NOTE | 2017-04-21 13:17 | PN ---
MHU: Group Therapy Note - Service Type Service Type: 23060 Psychotherapy - Initial Psychotherapy Note: Patient discussed events leading to current status and concerns and stressors moving forward. Shabbir presented with fair affect that varied appropriately with discussion. 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 Follow up session planned for tomorrow.
[2017-04-22] MEDS: Propranolol TAB* 10 MG PO SCH ×2 (08:21→19:51)
[2017-04-22] MEDS: Vitamin THERAPEUTIC TAB PO SCH (08:21)
[2017-04-22] MEDS: Fondaparinux* 2.5 MG/0.5 ML SYRINGE SUBCUT SCH (08:21)
[2017-04-22] MEDS: Furosemide TAB* 40 MG PO SCH (08:21)
[2017-04-22] MEDS: Spironolactone TAB* 25 MG PO SCH (08:21)
[2017-04-22] MEDS: Docusate CAP* 100 MG PO SCH ×2 (08:23→19:50)
--- NOTE | 2017-04-22 11:50 | PN ---
MHU: Group Therapy Note - Service Type Service Type: 42738 Psychotherapy - Individual Psychotherapy Note: Shabbir processed news that he may be discharged in very near future secondary to insurance company denying coverage. Discussion addressed outpatient follow up care possibilities and interests. Shabbir reports having the phone number to private clinician, and also is familiar with agencies in the community. He describes struggling with group context historically, but remains open to the possiblity. Discussion also addressed importance of self identification factors , such as being a father and what he does for work. 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 Shabbir impresses as having prosocial goals and aspirations which are positive prognostic factors in recovery from alcohol dependence.
--- NOTE | 2017-04-22 13:14 | CONSULT ---
Identification - Patient Identification Reason for Psychiatric Consultation: Patient Distress -: Patient is a 32 year old, M admitted on 04/14/17. - MHU Identification Employment Status: Employed Hx Psychiatric Hospitalization: No History - Objective HPI: Shabbir is seen for psychiatric follow up today. He appears in good spirits and is mulling over his options for behavioral health and substance abuse treatment in the community following discharge, which may be as early as tomorrow. The patient states that he does not tend to experience depression or anxiety until the winter, and that he tends to be euthymic in the summer months, such as now. He denies SI or HI and is not craving alcohol. He acknowledges that he and his will be attending several wedding receptions later this summer and admits that it might be a trigger to relapse on drinking. Nonetheless, he is hopeful that he can maintain sobriety and move forward with both his physical and mental health after discharge. Lab Results: Laboratory Tests 04/16/17 04/16/17 04/16/17 06:43 06:43 06:43 WBC 9.4 RBC 2.72 L Hgb 9.5 L Hct 28 L MCV 103 H MCH 35 H MCHC 34 RDW 15 Plt Count 115 L MPV 12 H Neut % (Auto) 55.3 Lymph % (Auto) 19.8 L [place] % (Auto) 11.5 H Eos % (Auto) 12.3 H Baso % (Auto) 1.1 Absolute Neuts (auto) 5.2 Absolute Lymphs (auto) 1.9 Absolute Monos (auto) 1.1 H Absolute Eos (auto) 1.1 H Absolute Basos (auto) 0.1 Absolute Nucleated RBC 0 Nucleated RBC % 0 INR (Anticoag Therapy) 1.40 H Sodium 132 L Potassium 3.5 Chloride 97 L Carbon Dioxide 27 Anion Gap 8 BUN 10 Creatinine 0.78 Est GFR ( Amer) 147.4 Est GFR (Non-Af Amer) 114.6 BUN/Creatinine Ratio 12.8 Glucose 106 H Calcium 8.6 Total Bilirubin 3.10 H Direct Bilirubin Indirect Bilirubin AST 188 H ALT 125 H Alkaline Phosphatase 83 Ammonia Total Protein 6.2 L Albumin 3.0 L Globulin 3.2 Albumin/Globulin Ratio 0.9 L 04/16/17 04/20/17 04/20/17 12:45 09:40 09:40 WBC RBC Hgb Hct MCV MCH MCHC RDW Plt Count MPV Neut % (Auto) Lymph % (Auto) [place] % (Auto) Eos % (Auto) Baso % (Auto) Absolute Neuts (auto) Absolute Lymphs (auto) Absolute Monos (auto) Absolute Eos (auto) Absolute Basos (auto) Absolute Nucleated RBC Nucleated RBC % INR (Anticoag Therapy) Sodium Potassium Chloride Carbon Dioxide Anion Gap BUN Creatinine Est GFR ( Amer) Est GFR (Non-Af Amer) BUN/Creatinine Ratio Glucose Calcium Total Bilirubin 3.00 H Direct Bilirubin 1.10 H Indirect Bilirubin 1.9 H AST 143 H ALT 88 H Alkaline Phosphatase 86 Ammonia 56 H 70 H Total Protein 6.6 Albumin 3.2 Globulin 3.4 Albumin/Globulin Ratio 0.9 L 04/22/17 06:00 WBC RBC Hgb Hct MCV MCH MCHC RDW Plt Count MPV Neut % (Auto) Lymph % (Auto) [place] % (Auto) Eos % (Auto) Baso % (Auto) Absolute Neuts (auto) Absolute Lymphs (auto) Absolute Monos (auto) Absolute Eos (auto) Absolute Basos (auto) Absolute Nucleated RBC Nucleated RBC % INR (Anticoag Therapy) Sodium Potassium Chloride Carbon Dioxide Anion Gap BUN Creatinine Est GFR ( Amer) Est GFR (Non-Af Amer) BUN/Creatinine Ratio Glucose Calcium Total Bilirubin Direct Bilirubin Indirect Bilirubin AST ALT Alkaline Phosphatase Ammonia 63 H Total Protein Albumin Globulin Albumin/Globulin Ratio Exam Appearance: Obese Hygiene: Normal Grooming: Well Kept Psychomotor Activities: Normal Exhibits Abnormal Movement: No Attitude and Relatedness: Cooperative Eye Contact: Good - Speech Quality: Unpressured Latencies: Normal Quantity: Appropriate Patient's Decription of Mood: "Good" Observed Affect: Good Affect Consistent with: Euthymia Patient's Thought Process: Coherent Thought Content: No Passive Wish, No Suicidal Planning, No Homicidal Ideation, No Paranoid Ideation Experiencing Hallucinations: No, Sensorium is Clear Type of Hallucinations: Visual: No, Auditory: No, Command: No Level of Consciousness: Alert Orientation: Yes Intact, Yes Orientated to Time, Yes Orientated to Place, Yes Orientated to Person Impulse Control: Intact Insight and Judgement: Good Impression - Impression Clinical Impression: 32 y.o. , white male with a history of alcohol use disorder admitted to [facility] for treatment of physical deconditioning secondary to several weeks on a ventilator in the setting of ascites and renal failure caused by drinking, who is seen by psychiatry for evaluation of anxiety and depression. Merits Inpatient Hospitalization: No Problem List - MHU Problems Type of Problem: Mood Status of Problem: Monitor Plan - Treatment Plan Treatment Plan: The patient has current referrals to clinicians Eusebio Patton and Gracie Henao in the community for outpatient follow up. He is pending d/c to home tomorrow. Psychiatric meds are not warranted at this time. Psychiatry is signing off but can be contacted by the primary team at any time with further questions or concerns. Thank you for allowing us to participate in the care of Mr. Blankenship. Medications: Current Medications Docusate Sodium (Colace Cap*) 100 mg PO BID [facility] Last Admin: 04/22/17 08:23 Dose: Not Given Fondaparinux (Arixtra*) 2.5 mg SUBCUT DAILY [facility] Last Admin: 04/22/17 08:21 Dose: 2.5 mg Furosemide (Lasix Tab*) 40 mg PO DAILY [facility] Last Admin: 04/22/17 08:21 Dose: 40 mg Lactulose (Lactulose*) 30 ml PO Q6H PRN PRN Reason: CONSTIPATION Multivitamins (Theragran Tab*) 1 tab PO DAILY [facility] Last Admin: 04/22/17 08:21 Dose: 1 tab Propranolol HCl (Inderal Tab*) 10 mg PO BID [facility] Last Admin: 04/22/17 08:21 Dose: 10 mg Spironolactone (Aldactone Tab*) 50 mg PO DAILY [facility] Last Admin: 04/22/17 08:21 Dose: 50 mg - Discharge Plan Discharge Plan: Outpatient Follow Up Outpatient Program: Private Clinician(s)
[2017-04-23 06:37] VITALS: BP 130/74
[2017-04-23 07:16] LABS: Globulin 3.1 g/dL (2-4); Indirect Bilirubin 1.9 mg/dL (0.3-1.0); Total Bilirubin 2.9 mg/dL (0.2-1.0); Total Protein 6.1 g/dL (6.4-8.9)
[2017-04-23 07:36] LABS: BUN/Creatinine Ratio 6.6 (8-20); Calcium 8.6 mg/dL (8.6-10.3); EGFR African American 195.8 (>60); EGFR Non-African American 152.2 (>60); Potassium 3.2 mmol/L (3.5-5.0)
[2017-04-23] MEDS: Fondaparinux* 2.5 MG/0.5 ML SYRINGE SUBCUT SCH (08:15)
[2017-04-23] MEDS: Propranolol TAB* 10 MG PO SCH (08:16)
[2017-04-23] MEDS: Docusate CAP* 100 MG PO SCH (08:16)
[2017-04-23] MEDS: Furosemide TAB* 40 MG PO SCH (08:16)
[2017-04-23] MEDS: Vitamin THERAPEUTIC TAB PO SCH (08:16)
[2017-04-23] MEDS: Spironolactone TAB* 25 MG PO SCH (08:16)
[2017-04-23] MEDS ORDERED: Spironolactone TAB* 25 MG PO SCH (15:08)
[2017-04-23] MEDS ORDERED: Potassium Chlor TAB* 20 MEQ TAB.ER PO ONE (15:21)
--- NOTE | 2017-04-25 03:50 | DS ---
CC: Dr. Kathy Tovar * DISCHARGE SUMMARY: DATE OF ADMISSION: 04/14/17 DATE OF DISCHARGE: 04/23/17 DISCHARGE DIAGNOSES: 1. Alcoholic hepatitis. 2. Hepatic encephalopathy. 3. Generalized weakness from prolonged intensive care unit stay. 4. Probable depression. 5. Alcoholism. 6. Acute respiratory failure, resolved. 7. Status post tracheostomy, resolved. 8. Anemia of chronic disease. 9. Acute renal failure, resolved. HISTORY OF ILLNESS AND HOSPITAL COURSE: For complete history of events leading up to his rehab stay please see the history and physical dictated by me on 04/14. While on the rehab unit, the patient received both psychiatric consult with Dr. Tobar as well as psychological counseling with Aneudy Macdonald, PhD. The patient expressed hope that he would be able to refrain from drinking after discharge. He did not wish to enter an inpatient detox program, although towards the end of his rehab stay, he did soften that stance and say he was willing to go into an inpatient detox. The patient's lab work did show high ammonia level, which responded to oral lactulose treatment. He did not show any signs of encephalopathy while on the unit. His LFTs were monitored while on the rehab unit. They consistently improved while on the rehab unit. At the time of discharge, his total bilirubin was 2.9, it had been 3.1 shortly after admission. His AST was 104 on discharge, it had been 188 on admission and his ALT was 66 on discharge, it was 125 on admission. His ammonia level was 49 on discharge. He was noted to be hypokalemic at the time of discharge. He was given one dose of potassium. His diuretics were adjusted. The patient was otherwise medically stable while on the rehab unit. The patient was seen by both physical and occupational therapy as well as speech therapy. The speech therapy, he did have a repeat modified barium swallow, his diet was able to be progressed from thickened liquids to thin liquids and to normal consistencies. With physical therapy at the time of admission, the patient required min assist for a transfer, he was able to ambulate 35 feet with minimal assistance of 2 people. With occupational therapy at the time of admission, he was min assist for toilet transfers. By the time of discharge, the patient was ambulating independent with transfers, able to ambulate 150 feet, independent going up and down 10 small stairs with a handrail, independent dressing, independent bathing , independent toileting and toilet transfers. The patient was discharged home, 04/23/17. Extensive meetings were held with the patient and his family regarding alcohol use. The patient felt that Alcoholics Anonymous and other 12- step programs did not work for him but he was willing to go to meetings after discharge. The patient was given the names of outpatient counselors to work with him. He was then strongly encouraged to go AA meetings in spite of his antipathy towards them. The patient as mentioned was discharged home on . DISCHARGE DIET: Regular. DISCHARGE MEDICATIONS: 1. Lasix 40 mg daily. 2. Lactulose 30 cc every 6 hours as needed. 3. Inderal 10 mg twice a day. 4. Aldactone 25 mg daily. FOLLOWUP: The patient will follow up with his primary care doctor, Dr. Kathy Tovar, at [facility]. He will also follow up with his private counselor for alcoholism. [id number]/[facility] #: [id number] MTDD
== END 2017-04-23 23:17 | disposition home or self-care (01) | DRG 860 ==
LOC: PMRU 11:18
PROVIDERS: ADMIT Physical Medicine & Rehabilitation; ATTEND Physical Medicine & Rehabilitation
PROC: F07Z5ZZ Bed Mobility Treatment (ICD-10-PCS; principal; 2017-04-14)
PROC: F07Z9ZZ Gait Training/Functional Ambulation Treatment (ICD-10-PCS; 2017-04-14)
PROC: F07Z8ZZ Transfer Training Treatment (ICD-10-PCS; 2017-04-14)
PROC: F07Z4ZZ Wheelchair Mobility Treatment (ICD-10-PCS; 2017-04-14)
PROC: F08Z0ZZ Bathing/Showering Techniques Treatment (ICD-10-PCS; 2017-04-14)
PROC: F08Z1ZZ Dressing Techniques Treatment (ICD-10-PCS; 2017-04-14)
PROC: F08Z3ZZ Feeding/Eating Treatment (ICD-10-PCS; 2017-04-14)
PROC: F06ZDZZ Swallowing Dysfunction Treatment (ICD-10-PCS; 2017-04-14)
DX: R53.1 Weakness (principal); K70.10 Alcoholic hepatitis without ascites; R13.10 Dysphagia, unspecified; F10.20 Alcohol dependence, uncomplicated; F32.9 Major depressive disorder, single episode, unspecified; D63.8 Anemia in other chronic diseases classified elsewhere; E87.6 Hypokalemia; Z79.899 Other long term (current) drug therapy; Z81.1 Family history of alcohol abuse and dependence
CPT/HCPCS: 36415; 74230; 80053; 80076; 82140; 85025; 85610; A9270-GY

== ENCOUNTER 2018-09-20 15:45 | Emergency (ER) | payer BC ==
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
[2018-09-20 17:38] LABS: ABS Basophils 0.1 10^3/ul (0-0.2); ABS Eosinophils 0.2 10^3/ul (0-0.6); ABS Lymphocytes 3.4 10^3/ul (1.0-4.8); ABS Monocytes 0.6 10^3/ul (0-0.8); ABS Neutrophils 7.5 10^3/ul (1.5-7.7); ABS Nucleated RBC 0 10^3/ul; Eosinophil % 1.9 %; Hematocrit 46 % (42-52); Hemoglobin 15.9 g/dl (14.0-18.0); Lymphocyte % 28.5 %; Mean Corpuscular HGB Conc 35 g/dl (31-36); Mean Corpuscular Hemoglobin 31 pg (27-31); Mean Corpuscular Volume 89 fL (80-94); Mean Platelet Volume 10.4 fL (7.4-10.4); Nucleated Red Blood Cells % 0; Platelet Count 149 10^3/ul (150-450); Red Cell Distribution Width 14 % (10.5-15); White Blood Count 11.9 10^3/ul (3.5-10.8)
[2018-09-20 17:54] LABS: Albumin 4.7 g/dL (3.2-5.2); Albumin/Globulin Ratio 1.7 (1-3); BUN/Creatinine Ratio 12.5 (8-20); Calcium 9.7 mg/dL (8.6-10.3); EGFR Non-African American 89.7 (>60); Globulin 2.8 g/dL (2-4); Potassium 4.5 mmol/L (3.5-5.0); Total Bilirubin 0.6 mg/dL (0.2-1.0); Total Protein 7.5 g/dL (6.4-8.9)
[2018-09-20 20:19] VITALS: BP 132/84
== END 2018-09-20 20:18 | disposition home or self-care (01) ==
LOC: ED 15:45
DX: R07.89 Other chest pain (principal); K70.40 Alcoholic hepatic failure without coma; G62.9 Polyneuropathy, unspecified
CPT/HCPCS: 36415; 70450; 71046; 80053; 83605; 84484; 85025; 85730; 93005; 99282